=== PATIENT | male | born 1940 | race Caucasian/White ===

== ENCOUNTER → 2023-05-22 12:10 | Outpatient (REF) | payer MEDICARE, SELFPAY ==
[2023-05-22 19:20] LABS: % Basophils 0.6 % (0-2); % Eosinophils 1.6 % (0-6); % Immature Granulocytes 4.4 % (0-0.5); % Lymphocytes 12.9 % (20.5-51.1); % Monocytes 7.3 % (1.7-9.3); % Neutrophils 73.2 % (42.2-75.2); Absolute Basophils 0.1 10^3/uL (0-0.2); Absolute Eosinophils 0.1 10^3/uL (0-0.7); Absolute Immature Granulocytes 0.4 10^3/uL (0-0.05); Absolute Lymphocytes 1.1 10^3/uL (1.2-3.4); Absolute Monocytes 0.6 10^3/uL (0.1-0.6); Absolute Neutrophils 6.1 10^3/uL (1.4-6.5); Hematocrit 33.9 % (39.0-52.0); Hemoglobin 11.2 g/dL (13.0-18.0); Mean Corpuscular Hgb 31.5 pg (27.0-31.0); Mean Corpuscular Volume 95.5 fL (80.0-94.0); Mean Platelet Volume 10.4 fL (7.4-10.4); Nucleated Red Blood Cells % 0 % (-); Platelet Count 252 10^3/uL (130-400); Red Blood Cell Count 3.55 10^6/uL (4.70-6.10); Red Cell Dist. Width 15.7 % (11.5-14.5); White Blood Cell Count 8.4 10^3/uL (4.8-10.8)
[2023-05-22 19:25] LABS: ALT (SGPT) 39 U/L (0-50); AST (SGOT) 31 U/L (17-59); Albumin 3.6 g/dl (3.5-5.0); Alkaline Phosphatase 955 U/L (38-126); Blood Urea Nitrogen 23 mg/dl (9-20); Calcium 9.3 mg/dl (8.4-10.2); Carbon Dioxide 22 mmol/L (22-30); Chloride 106 mmol/L (98-107); Glucose 94 mg/dl (70-99); Potassium 4.8 mmol/L (3.5-5.1); Sodium 135 mmol/L (135-145); Total Bilirubin 0.5 mg/dl (0.2-1.3); Total Protein 6.4 g/dl (6.3-8.2); eGFR 59.63
[2023-05-23 03:09] LABS: TSH Reflex To Free T4 3.08 uIU/ml (0.47-4.68)
[2023-05-23 03:28] LABS: Vitamin B12 947 pg/ml (239-931)
== END ==
LOC: CLAB 12:10
PROVIDERS: ATTENDING PHYSICIAN Family Medicine
DX: R41.3 Other amnesia (principal); D35.1 Benign neoplasm of parathyroid gland; C79.51 Secondary malignant neoplasm of bone; I10 Essential (primary) hypertension
CPT/HCPCS: 80053; 82607; 84443; 85025

== ENCOUNTER → 2023-05-23 15:05 | Outpatient (REF) | payer MEDICARE, SELFPAY | LOC: RAD 15:05 | PROVIDERS: ATTENDING PHYSICIAN Internal Medicine Hematology & Oncology; FAMILY PHYSICIAN Family Medicine | DX: C61 Malignant neoplasm of prostate (principal); C79.51 Secondary malignant neoplasm of bone | CPT/HCPCS: 71260; Q9967 ==

== ENCOUNTER 2023-05-23 16:01 | Emergency (ER) | payer MEDICARE, SELFPAY ==
[2023-05-23 16:04] VITALS: BP 121/60
[2023-05-23 16:44] LABS: % Basophils 0.6 % (0-2); % Eosinophils 2.1 % (0-6); % Lymphocytes 14.9 % (20.5-51.1); % Monocytes 10.2 % (1.7-9.3); % Neutrophils 68.2 % (42.2-75.2); Absolute Eosinophils 0.2 10^3/uL (0-0.7); Absolute Immature Granulocytes 0.3 10^3/uL (0-0.05); Absolute Lymphocytes 1.1 10^3/uL (1.2-3.4); Absolute Monocytes 0.7 10^3/uL (0.1-0.6); Absolute Neutrophils 4.9 10^3/uL (1.4-6.5); Hematocrit 31.1 % (39.0-52.0); Hemoglobin 10.5 g/dL (13.0-18.0); Mean Corp Hgb Conc. 33.8 g/dL (33.0-37.0); Mean Corpuscular Volume 94.8 fL (80.0-94.0); Mean Platelet Volume 10.1 fL (7.4-10.4); Nucleated Red Blood Cells % 0 % (-); Platelet Count 224 10^3/uL (130-400); Red Blood Cell Count 3.28 10^6/uL (4.70-6.10); Red Cell Dist. Width 15.7 % (11.5-14.5); White Blood Cell Count 7.2 10^3/uL (4.8-10.8)
[2023-05-23 16:51] LABS: Lactic Acid 1.2 mmol/L (0.7-2.0)
[2023-05-23 16:54] LABS: ALT (SGPT) 33 U/L (0-50); AST (SGOT) 23 U/L (17-59); Albumin 3.2 g/dl (3.5-5.0); Alkaline Phosphatase 799 U/L (38-126); Blood Urea Nitrogen 30 mg/dl (9-20); Carbon Dioxide 23 mmol/L (22-30); Chloride 105 mmol/L (98-107); Glucose 83 mg/dl (70-99); Potassium 5.1 mmol/L (3.5-5.1); Sodium 136 mmol/L (135-145); Total Bilirubin 0.6 mg/dl (0.2-1.3); Total Protein 5.9 g/dl (6.3-8.2); eGFR 49.56
--- NOTE | 2023-05-23 19:04 | ED.GENMED ---
History of Present Illness
General
Chief Complaint: Change in Mental Status
Time Seen by Provider: 05/23/23 18:43
Travel History
Have you had any contact with someone who has COVID-19?: No
Do you have any symptoms of coronavirus? Fever > 100 degrees, chills, cough, shortness of breath, sore throat, loss of taste or smell, muscle aches, or headache?: No
History of Present Illness
History of Present Illness:
83-year-old male with history of metastatic prostate cancer and chronic urinary retention requiring straight catheterization presents for evaluation of gradually worsening confusion over the past several weeks. He has apparently been forgetful with
taking his medications as well as his outpatient appointment times. No profound confusion reported by family. He was given antibiotic for a presumed urinary tract infection by his urologist and completed this as of this morning. He straight
catheterizes himself twice daily. Patient denies any other complaints at this time. He apparently saw his primary care physician yesterday at which time a Mini-Mental status exam was markedly abnormal thus prompting the PCP to send him to the
emergency department for further neurologic workup
Review of Systems
Review of Systems
Allergies reviewed?: Yes
All Other Systems: ROS reviewed and negative except as documented in HPI and ROS
Phy Exam
Physical Exam
Physical Exam:
GEN: Well appearing, NAD, WDWN
HEENT: Oral mucosa moist, no scleral icterus, no nasal congestion
Cardiac: Regular rate
Lung: No respiratory distress, no tachypnea
MSK: No gross deformity or injuries
Skin: Good color, no pallor or jaundice, no rashes
Neuro: Alert, oriented to person, place, some confusion to time; CN II-XII grossly intact. BUE strength 5/5 in all bone, sensation intact and symmetric. BLE strength 5/5 in all bone, sensation intact and symmetric
Psych: Calm, cooperative
Course
Orders/Labs/Results
Orders:
Orders
05/23/23 16:26
Complete Blood Count/With Diff Urgent
Comprehensive Metabolic Panel Urgent
Lactic Acid Urgent
Blood Culture Urgent
PARVIZ Source: Blood/Venous
Specimen Description:
05/23/23 18:58
CT Head W/o Iv Contrast Urgent
Comment:
Reason For Exam: altered mentation
05/23/23 19:25
Urinalysis Reflex To Culture Urgent
Date Specimen was Collected: 05/23/23
Time Specimen was Collected: 19:17
Urine Microscopic Reflex Cult Urgent
Urine Culture Urgent
PARVIZ Source: U
Specimen Description:
Date Specimen was Collected: 05/23/23
Time Specimen was Collected: 19:17
Comment: ADD ON
05/23/23 21:57
Add On - Microbiology Urgent
Tests Added?: urine culture
Abnormal Lab Results
05/23/23 05/23/23
16:26 19:25
RBC 3.28 L 10^6/uL
(4.70-6.10)
Hgb 10.5 L g/dL
(13.0-18.0)
Hct 31.1 L %
(39.0-52.0)
MCV 94.8 H fL
(80.0-94.0)
MCH 32.0 H pg
(27.0-31.0)
RDW 15.7 H %
(11.5-14.5)
Abs Immat Gran (auto) 0.3 H 10^3/uL
(0-0.05)
Absolute Lymphs (auto) 1.1 L 10^3/uL
(1.2-3.4)
Absolute Monos (auto) 0.7 H 10^3/uL
(0.1-0.6)
Immature Gran % 4.0 H %
(0-0.5)
Lymphocytes % 14.9 L %
(20.5-51.1)
Monocytes % 10.2 H %
(1.7-9.3)
BUN 30 H mg/dl
(9-20)
Creatinine 1.4 H mg/dL
(0.7-1.3)
Alkaline Phosphatase 799 H U/L
(38-126)
Total Protein 5.9 L g/dl
(6.3-8.2)
Albumin 3.2 L g/dl
(3.5-5.0)
Ur Occult Blood Reflex 2+ A
(Negative)
Leukocyte Esterase Rfl Trace A
(Negative)
Urine RBC 21-25 A /HPF
(0-2)
05/23/23 16:26
05/23/23 16:26
Vital Signs
Initial and Last Documented VS:
Initial Vital Signs
Temp Pulse Resp BP Pulse Ox
97.7 F 90 20 121/60 99
05/23/23 16:04 05/23/23 16:04 05/23/23 16:04 05/23/23 16:04 05/23/23 16:04
Last Documented Vital Signs
Temp Pulse Resp BP Pulse Ox
97.7 F 83 16 107/70 100
05/23/23 16:04 05/23/23 19:26 05/23/23 19:26 05/23/23 19:26 05/23/23 19:26
MDM/Problems Addressed
MDM/Problems Addressed:
CT and labs are unremarkable. 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 I discussed this with her primary care physician who will continue to follow-up with the patient and hopefully expedite a
neurology follow-up. I see no indication for inpatient admission at this time, the patient is quite adamant on being discharged home and the son is in agreement
*Critical Care Note
Total Time (30-74mins, 75-104mins- exclusive of procedures): Not Applicable
ED Attending Note
-
Portions of this chart may have been created with voice recognition software.� Occasional wrong word or��sound alike� substitutions may have occurred due to the inherent limitations of voice recognition software.
Discharge Plan
Departure
Patient Disposition: Home (Routine Discharge)
Date of Disposition: 05/23/23
Time of Disposition: 22:03
Patient with high blood pressure during this ER visit?: No
Discharge Problem:
Acute cognitive decline
Instructions: Altered Mental Status (DC)
Prescriptions:
No Action
bicalutamide 50 mg Tablet
50 mg PO QPM
atorvastatin [Lipitor] 20 mg Tablet
20 mg PO QPM
cyanocobalamin (vitamin B-12) 1,000 mcg Tablet
1,000 mcg PO DAILY
ascorbic acid (vitamin C) [Vitamin C] 500 mg Tablet
500 mg PO DAILY
tamsulosin [Flomax] 0.4 mg Capsule
0.4 mg PO HS
finasteride 5 mg Tablet
5 mg PO QPM
ramipril 10 mg Capsule
10 mg PO DAILY
cholecalciferol (vitamin D3) [Vitamin D3] 25 mcg (1,000 unit) Tablet
25 mcg PO DAILY
Azo Bladder Control 300 mg Capsule
1 cap PO DAILY
Referrals:
Vitaliy Edwards MD [Active] -
Ayleen Botello MD [Family Provider] -
Interventions
Interventions:
*Risk Screen - Suicide Last Done: 05/23/23 16:04
*General Assessment Last Done: 05/23/23 16:04
*Neglect/Abuse Screening Last Done: 05/23/23 16:04
*ED COVID-19 Vaccine History Last Done: 05/23/23 19:26
*Nursing Disposition Last Done: 05/23/23 22:37
ED- Neurological Assessment Last Done: 05/23/23 19:26
ED Swallowing Screen Last Done: 05/23/23 19:26
Discharge Date and Time
Discharge Date/Time: 05/23/23 22:39
[2023-05-23 19:26] VITALS: BP 107/70; BMI 22.1
[2023-05-23 19:40] LABS: Urine Albumin Negative (Neg - Trace); Urine Bilirubin Negative (Negative); Urine Character Clear (Clear); Urine Color Yellow; Urine Glucose Negative (Negative); Urine Ketone Negative (Negative); Urine Leukocyte Trace (Negative); Urine Nitrite Negative (Negative); Urine Occult Blood 2+ (Negative); Urine Specific Gravity 1.015 (<1.030); Urine Urobilinogen Negative (Neg - 1+)
[2023-05-23 19:44] LABS: Urine Squamous Cell 0-2 /LPF (Few)
[2023-05-23 19:53] LABS: Urine Hyaline Cast 0-2 /LPF (0-2)
[2023-05-23 19:54] LABS: Urine Red Blood Cell 21-25 /HPF (0-2)
== END 2023-05-23 22:39 | disposition home or self-care (01) ==
LOC: EMR 16:01
PROVIDERS: Emergency Medicine; Physician Assistant; EMERGENCY PHYSICIAN Emergency Medicine; FAMILY PHYSICIAN Family Medicine
DX: R41.89 Other symptoms and signs involving cognitive functions and awareness (principal); R33.9 Retention of urine, unspecified
CPT/HCPCS: 99284; 51701; 70450; 80053; 81003; 81015; 83605; 85025; 87040; 87086

== ENCOUNTER → 2023-06-28 08:16 | Outpatient (REF) | payer MEDICARE, SELFPAY ==
[2023-06-28 08:57] LABS: % Basophils 0.8 % (0-2); % Eosinophils 2.4 % (0-6); % Immature Granulocytes 4.3 % (0-0.5); % Lymphocytes 21.8 % (20.5-51.1); % Neutrophils 57.7 % (42.2-75.2); Absolute Eosinophils 0.1 10^3/uL (0-0.7); Absolute Immature Granulocytes 0.2 10^3/uL (0-0.05); Absolute Lymphocytes 0.8 10^3/uL (1.2-3.4); Absolute Monocytes 0.5 10^3/uL (0.1-0.6); Absolute Neutrophils 2.2 10^3/uL (1.4-6.5); Hematocrit 25.4 % (39.0-52.0); Hemoglobin 8.4 g/dL (13.0-18.0); Mean Corp Hgb Conc. 33.1 g/dL (33.0-37.0); Mean Corpuscular Hgb 31.7 pg (27.0-31.0); Mean Corpuscular Volume 95.8 fL (80.0-94.0); Mean Platelet Volume 10.3 fL (7.4-10.4); Nucleated Red Blood Cells % 0 % (-); Platelet Count 232 10^3/uL (130-400); Red Blood Cell Count 2.65 10^6/uL (4.70-6.10); Red Cell Dist. Width 19.6 % (11.5-14.5); White Blood Cell Count 3.8 10^3/uL (4.8-10.8)
[2023-06-28 09:31] LABS: ALT (SGPT) 23 U/L (0-50); AST (SGOT) 24 U/L (17-59); Albumin 3.5 g/dl (3.5-5.0); Alkaline Phosphatase 649 U/L (38-126); Blood Urea Nitrogen 26 mg/dl (9-20); Calcium 7.4 mg/dl (8.4-10.2); Carbon Dioxide 15 mmol/L (22-30); Chloride 115 mmol/L (98-107); Glucose 89 mg/dl (70-99); Potassium 5.1 mmol/L (3.5-5.1); Sodium 137 mmol/L (135-145); Total Bilirubin 0.5 mg/dl (0.2-1.3); Total Protein 6.1 g/dl (6.3-8.2); eGFR > 60.00
== END ==
LOC: REG 08:16
PROVIDERS: ATTENDING PHYSICIAN Internal Medicine Hematology & Oncology; FAMILY PHYSICIAN Family Medicine
DX: C61 Malignant neoplasm of prostate (principal); C79.51 Secondary malignant neoplasm of bone; N32.0 Bladder-neck obstruction; G89.3 Neoplasm related pain (acute) (chronic)
CPT/HCPCS: 36415; 80053; 84153; 85025

== ENCOUNTER → 2023-07-09 08:42 | Outpatient (REF) | payer MEDICARE, SELFPAY ==
[2023-07-09 10:26] LABS: % Basophils 0.4 % (0-2); % Eosinophils 2.1 % (0-6); % Immature Granulocytes 1.7 % (0-0.5); % Lymphocytes 21.8 % (20.5-51.1); Absolute Eosinophils 0.1 10^3/uL (0-0.7); Absolute Immature Granulocytes 0.1 10^3/uL (0-0.05); Absolute Monocytes 0.5 10^3/uL (0.1-0.6); Hematocrit 27.3 % (39.0-52.0); Hemoglobin 8.8 g/dL (13.0-18.0); Mean Corp Hgb Conc. 32.2 g/dL (33.0-37.0); Mean Corpuscular Hgb 31.9 pg (27.0-31.0); Mean Corpuscular Volume 98.9 fL (80.0-94.0); Mean Platelet Volume 10.1 fL (7.4-10.4); Nucleated Red Blood Cells % 0 % (-); Platelet Count 240 10^3/uL (130-400); Red Blood Cell Count 2.76 10^6/uL (4.70-6.10); Red Cell Dist. Width 20.8 % (11.5-14.5); Reticulocyte Count 2.2 % (0.4-2.8); White Blood Cell Count 4.7 10^3/uL (4.8-10.8)
[2023-07-09 11:13] LABS: ALT (SGPT) 23 U/L (0-50); AST (SGOT) 23 U/L (17-59); Albumin 3.8 g/dl (3.5-5.0); Alkaline Phosphatase 612 U/L (38-126); Blood Urea Nitrogen 25 mg/dl (9-20); Calcium 6.6 mg/dl (8.4-10.2); Carbon Dioxide 17 mmol/L (22-30); Chloride 115 mmol/L (98-107); Glucose 87 mg/dl (70-99); Iron 117 ug/dl (49-181); LDH 183 U/L (120-246); Potassium 5.3 mmol/L (3.5-5.1); Sodium 138 mmol/L (135-145); Total Bilirubin 0.4 mg/dl (0.2-1.3); Total Protein 6.5 g/dl (6.3-8.2); eGFR > 60.00
[2023-07-09 11:20] LABS: Percent Saturation 49 % (20-50); Total Iron Binding Capacity 237 ug/dl (261-462)
[2023-07-09 12:10] LABS: Folate 18.6 ng/ml (2.76-20); Vitamin B12 696 pg/ml (239-931)
[2023-07-10 11:39] LABS: Haptoglobin 391 mg/dL (30-200)
== END ==
LOC: REG 08:42
PROVIDERS: ATTENDING PHYSICIAN Internal Medicine Hematology & Oncology; FAMILY PHYSICIAN Family Medicine
DX: C61 Malignant neoplasm of prostate (principal); C79.51 Secondary malignant neoplasm of bone; N32.0 Bladder-neck obstruction; G89.3 Neoplasm related pain (acute) (chronic)
CPT/HCPCS: 36415; 80053; 82607; 82728; 82746; 83010; 83540; 83550; 83615; 85025; 85045

== ENCOUNTER → 2023-07-12 08:58 | Outpatient (REF) | payer MEDICARE, SELFPAY ==
[2023-07-12 10:55] LABS: ALT (SGPT) 21 U/L (0-50); AST (SGOT) 21 U/L (17-59); Albumin 3.8 g/dl (3.5-5.0); Alkaline Phosphatase 556 U/L (38-126); Blood Urea Nitrogen 24 mg/dl (9-20); Calcium 7.7 mg/dl (8.4-10.2); Carbon Dioxide 18 mmol/L (22-30); Chloride 112 mmol/L (98-107); Glucose 96 mg/dl (70-99); Potassium 5.2 mmol/L (3.5-5.1); Sodium 139 mmol/L (135-145); Total Bilirubin 0.6 mg/dl (0.2-1.3); Total Protein 6.3 g/dl (6.3-8.2); eGFR > 60.00
== END ==
LOC: REG 08:58
PROVIDERS: ATTENDING PHYSICIAN Nurse Practitioner Family; FAMILY PHYSICIAN Family Medicine
DX: C61 Malignant neoplasm of prostate (principal); C79.51 Secondary malignant neoplasm of bone; N32.0 Bladder-neck obstruction; G89.3 Neoplasm related pain (acute) (chronic)
CPT/HCPCS: 36415; 80053

== ENCOUNTER → 2023-07-17 08:31 | Outpatient (REF) | payer MEDICARE, SELFPAY ==
[2023-07-17 10:01] LABS: ALT (SGPT) 22 U/L (0-50); AST (SGOT) 20 U/L (17-59); Albumin 3.6 g/dl (3.5-5.0); Alkaline Phosphatase 486 U/L (38-126); Blood Urea Nitrogen 32 mg/dl (9-20); Calcium 7.9 mg/dl (8.4-10.2); Carbon Dioxide 17 mmol/L (22-30); Chloride 114 mmol/L (98-107); Glucose 95 mg/dl (70-99); Potassium 5.3 mmol/L (3.5-5.1); Sodium 139 mmol/L (135-145); Total Bilirubin 0.4 mg/dl (0.2-1.3); Total Protein 6.2 g/dl (6.3-8.2); eGFR > 60.00
== END ==
LOC: REG 08:31
PROVIDERS: ATTENDING PHYSICIAN Internal Medicine Hematology & Oncology; FAMILY PHYSICIAN Family Medicine
DX: C61 Malignant neoplasm of prostate (principal); C79.51 Secondary malignant neoplasm of bone; N32.0 Bladder-neck obstruction; G89.3 Neoplasm related pain (acute) (chronic)
CPT/HCPCS: 36415; 80053

== ENCOUNTER → 2023-07-19 08:27 | Outpatient (REF) | payer MEDICARE, SELFPAY ==
[2023-07-19 09:39] LABS: Blood Urea Nitrogen 31 mg/dl (9-20); Calcium 8.5 mg/dl (8.4-10.2); Carbon Dioxide 17 mmol/L (22-30); Chloride 116 mmol/L (98-107); Glucose 89 mg/dl (70-99); Potassium 4.9 mmol/L (3.5-5.1); Sodium 137 mmol/L (135-145); eGFR > 60.00
== END ==
LOC: REG 08:27
PROVIDERS: ATTENDING PHYSICIAN Internal Medicine Hematology & Oncology
DX: C61 Malignant neoplasm of prostate (principal); C79.51 Secondary malignant neoplasm of bone; N32.0 Bladder-neck obstruction; G89.3 Neoplasm related pain (acute) (chronic)
CPT/HCPCS: 36415; 80048

== ENCOUNTER → 2023-08-13 09:13 | Outpatient (REF) | payer MEDICARE, SELFPAY ==
[2023-08-13 10:22] LABS: % Basophils 0.5 % (0-2); % Eosinophils 1.9 % (0-6); % Immature Granulocytes 3.7 % (0-0.5); % Lymphocytes 19.2 % (20.5-51.1); % Monocytes 10.9 % (1.7-9.3); % Neutrophils 63.8 % (42.2-75.2); Absolute Eosinophils 0.1 10^3/uL (0-0.7); Absolute Immature Granulocytes 0.2 10^3/uL (0-0.05); Absolute Lymphocytes 1.1 10^3/uL (1.2-3.4); Absolute Monocytes 0.6 10^3/uL (0.1-0.6); Absolute Neutrophils 3.6 10^3/uL (1.4-6.5); Hematocrit 25.8 % (39.0-52.0); Hemoglobin 8.1 g/dL (13.0-18.0); Mean Corp Hgb Conc. 31.4 g/dL (33.0-37.0); Mean Corpuscular Hgb 32.8 pg (27.0-31.0); Mean Corpuscular Volume 104.5 fL (80.0-94.0); Mean Platelet Volume 10.6 fL (7.4-10.4); Nucleated Red Blood Cells % 0 % (-); Platelet Count 315 10^3/uL (130-400); Red Blood Cell Count 2.47 10^6/uL (4.70-6.10); Red Cell Dist. Width 18.8 % (11.5-14.5); White Blood Cell Count 5.7 10^3/uL (4.8-10.8)
[2023-08-13 14:33] LABS: ALT (SGPT) 30 U/L (0-50); AST (SGOT) 22 U/L (17-59); Albumin 3.6 g/dl (3.5-5.0); Alkaline Phosphatase 287 U/L (38-126); Blood Urea Nitrogen 34 mg/dl (9-20); Calcium 7.4 mg/dl (8.4-10.2); Carbon Dioxide 16 mmol/L (22-30); Chloride 116 mmol/L (98-107); Glucose 88 mg/dl (70-99); Potassium 5.6 mmol/L (3.5-5.1); Sodium 139 mmol/L (135-145); Total Bilirubin 0.2 mg/dl (0.2-1.3); Total Protein 6.2 g/dl (6.3-8.2); eGFR 59.63
== END ==
LOC: REG 09:13
PROVIDERS: ATTENDING PHYSICIAN Internal Medicine Hematology & Oncology; FAMILY PHYSICIAN Family Medicine
DX: C61 Malignant neoplasm of prostate (principal); C79.51 Secondary malignant neoplasm of bone; N32.0 Bladder-neck obstruction; G89.3 Neoplasm related pain (acute) (chronic)
CPT/HCPCS: 36415; 80053; 85025

== ENCOUNTER → 2023-09-04 09:36 | Outpatient (REF) | payer MEDICARE, SELFPAY ==
[2023-09-04 10:50] LABS: Urine Albumin Negative (Neg - Trace); Urine Bilirubin Negative (Negative); Urine Character Slightly Cloudy (Clear); Urine Color Yellow; Urine Glucose Negative (Negative); Urine Ketone Negative (Negative); Urine Leukocyte 2+ (Negative); Urine Nitrite Negative (Negative); Urine Occult Blood Trace (Negative); Urine Urobilinogen Negative (Neg - 1+)
[2023-09-04 11:14] LABS: Urine Bacteria Moderate (Negative); Urine White Cell 50-60 /HPF (0-5)
== END ==
LOC: REG 09:36
PROVIDERS: ATTENDING PHYSICIAN Surgery; FAMILY PHYSICIAN Family Medicine
DX: N39.0 Urinary tract infection, site not specified (principal)
CPT/HCPCS: 81003; 81015; 87086; 87147; 87186

== ENCOUNTER → 2023-09-07 08:39 | Outpatient (REF) | payer MEDICARE, SELFPAY ==
[2023-09-07 09:16] LABS: % Basophils 0.5 % (0-2); % Eosinophils 3.3 % (0-6); % Immature Granulocytes 0.8 % (0-0.5); % Lymphocytes 21.1 % (20.5-51.1); % Monocytes 8.5 % (1.7-9.3); % Neutrophils 65.8 % (42.2-75.2); Absolute Eosinophils 0.1 10^3/uL (0-0.7); Absolute Lymphocytes 0.8 10^3/uL (1.2-3.4); Absolute Monocytes 0.3 10^3/uL (0.1-0.6); Absolute Neutrophils 2.4 10^3/uL (1.4-6.5); Hematocrit 26.8 % (39.0-52.0); Hemoglobin 8.3 g/dL (13.0-18.0); Mean Corpuscular Hgb 33.2 pg (27.0-31.0); Mean Corpuscular Volume 107.2 fL (80.0-94.0); Mean Platelet Volume 9.9 fL (7.4-10.4); Nucleated Red Blood Cells % 0 % (-); Platelet Count 227 10^3/uL (130-400); Red Cell Dist. Width 16.7 % (11.5-14.5); White Blood Cell Count 3.7 10^3/uL (4.8-10.8)
[2023-09-07 09:43] LABS: ALT (SGPT) 16 U/L (0-50); AST (SGOT) 19 U/L (17-59); Albumin 3.5 g/dl (3.5-5.0); Alkaline Phosphatase 346 U/L (38-126); Blood Urea Nitrogen 27 mg/dl (9-20); Calcium 8.3 mg/dl (8.4-10.2); Carbon Dioxide 21 mmol/L (22-30); Chloride 112 mmol/L (98-107); Glucose 134 mg/dl (70-99); Potassium 5.1 mmol/L (3.5-5.1); Sodium 140 mmol/L (135-145); Total Bilirubin 0.2 mg/dl (0.2-1.3); eGFR 59.63
== END ==
LOC: REG 08:39
PROVIDERS: ATTENDING PHYSICIAN Internal Medicine Hematology & Oncology; FAMILY PHYSICIAN Family Medicine
DX: C61 Malignant neoplasm of prostate (principal); C79.51 Secondary malignant neoplasm of bone; N32.0 Bladder-neck obstruction; G89.3 Neoplasm related pain (acute) (chronic)
CPT/HCPCS: 36415; 80053; 84153; 84154; 85025

== ENCOUNTER → 2023-09-20 13:38 | Outpatient (REF) | payer MEDICARE, SELFPAY ==
[2023-09-20 18:43] LABS: Urine Albumin Negative (Neg - Trace); Urine Bilirubin Negative (Negative); Urine Character Clear (Clear); Urine Color Yellow; Urine Glucose Negative (Negative); Urine Ketone Negative (Negative); Urine Leukocyte Trace (Negative); Urine Nitrite Negative (Negative); Urine Occult Blood Negative (Negative); Urine Specific Gravity 1.005 (<1.030); Urine Urobilinogen Negative (Neg - 1+)
[2023-09-20 18:49] LABS: Urine Red Blood Cell 0-2 /HPF (0-2)
== END ==
LOC: CLAB 13:38
PROVIDERS: ATTENDING PHYSICIAN Surgery
DX: N39.0 Urinary tract infection, site not specified (principal)
CPT/HCPCS: 81003; 81015; 87086

== ENCOUNTER → 2023-09-25 09:34 | Outpatient (REF) | payer MEDICARE, SELFPAY ==
[2023-09-25 10:21] LABS: Ionized Calcium 1.19 mMOL/L (1.15-1.33)
[2023-09-25 11:22] LABS: ALT (SGPT) 20 U/L (0-50); AST (SGOT) 23 U/L (17-59); Albumin 3.6 g/dl (3.5-5.0); Alkaline Phosphatase 375 U/L (38-126); Blood Urea Nitrogen 31 mg/dl (9-20); Calcium 8.5 mg/dl (8.4-10.2); Carbon Dioxide 21 mmol/L (22-30); Chloride 112 mmol/L (98-107); Glucose 101 mg/dl (70-99); Potassium 5.3 mmol/L (3.5-5.1); Sodium 140 mmol/L (135-145); Total Bilirubin 0.2 mg/dl (0.2-1.3); Total Protein 6.1 g/dl (6.3-8.2); eGFR > 60.00
[2023-09-25 11:26] LABS: Vitamin D, 25-OH*** 60.9 ng/mL (30-80)
[2023-09-25 11:40] LABS: TSH 1.63 uIU/ml (0.47-4.68)
== END ==
LOC: REG 09:34
PROVIDERS: ATTENDING PHYSICIAN Internal Medicine Endocrinology, Diabetes & Metabolism; FAMILY PHYSICIAN Family Medicine
DX: E21.0 Primary hyperparathyroidism (principal); E55.9 Vitamin D deficiency, unspecified
CPT/HCPCS: 36415; 80053; 82306; 82330; 83970; 84443

== ENCOUNTER → 2023-10-10 10:44 | Outpatient (REF) | payer MEDICARE, SELFPAY ==
[2023-10-10 10:37] LABS: % Basophils 0.5 % (0-2); % Eosinophils 2.6 % (0-6); % Immature Granulocytes 1.6 % (0-0.5); % Lymphocytes 24.9 % (20.5-51.1); % Monocytes 10.2 % (1.7-9.3); % Neutrophils 60.2 % (42.2-75.2); Absolute Eosinophils 0.1 10^3/uL (0-0.7); Absolute Immature Granulocytes 0.1 10^3/uL (0-0.05); Absolute Monocytes 0.4 10^3/uL (0.1-0.6); Absolute Neutrophils 2.3 10^3/uL (1.4-6.5); Hematocrit 26.6 % (39.0-52.0); Hemoglobin 8.7 g/dL (13.0-18.0); Mean Corp Hgb Conc. 32.7 g/dL (33.0-37.0); Mean Corpuscular Hgb 33.7 pg (27.0-31.0); Mean Corpuscular Volume 103.1 fL (80.0-94.0); Platelet Count 270 10^3/uL (130-400); Red Blood Cell Count 2.58 10^6/uL (4.70-6.10); Red Cell Dist. Width 15.4 % (11.5-14.5); White Blood Cell Count 3.8 10^3/uL (4.8-10.8)
== END ==
LOC: OIDL 10:44
PROVIDERS: ATTENDING PHYSICIAN Internal Medicine Hematology & Oncology
DX: C61 Malignant neoplasm of prostate (principal)
CPT/HCPCS: 84153; 84403; 85025

== ENCOUNTER → 2023-10-31 12:26 | Outpatient (REF) | payer MEDICARE, SELFPAY ==
[2023-10-31 12:59] LABS: % Basophils 0.5 % (0-2); % Eosinophils 1.2 % (0-6); % Lymphocytes 22.5 % (20.5-51.1); % Monocytes 10.8 % (1.7-9.3); Absolute Eosinophils 0.1 10^3/uL (0-0.7); Absolute Lymphocytes 0.9 10^3/uL (1.2-3.4); Absolute Monocytes 0.4 10^3/uL (0.1-0.6); Absolute Neutrophils 2.6 10^3/uL (1.4-6.5); Hematocrit 25.8 % (39.0-52.0); Hemoglobin 8.3 g/dL (13.0-18.0); Mean Corp Hgb Conc. 32.2 g/dL (33.0-37.0); Mean Corpuscular Hgb 32.4 pg (27.0-31.0); Mean Corpuscular Volume 100.8 fL (80.0-94.0); Mean Platelet Volume 9.9 fL (7.4-10.4); Nucleated Red Blood Cells % 0 % (-); Platelet Count 234 10^3/uL (130-400); Red Blood Cell Count 2.56 10^6/uL (4.70-6.10); Red Cell Dist. Width 15.3 % (11.5-14.5); White Blood Cell Count 4.1 10^3/uL (4.8-10.8)
[2023-10-31 13:16] LABS: ALT (SGPT) 20 U/L (0-50); AST (SGOT) 27 U/L (17-59); Albumin 3.9 g/dl (3.5-5.0); Alkaline Phosphatase 358 U/L (38-126); Blood Urea Nitrogen 36 mg/dl (9-20); Calcium 9.4 mg/dl (8.4-10.2); Carbon Dioxide 22 mmol/L (22-30); Chloride 112 mmol/L (98-107); Glucose 89 mg/dl (70-99); Potassium 5.3 mmol/L (3.5-5.1); Sodium 141 mmol/L (135-145); Total Bilirubin 0.4 mg/dl (0.2-1.3); Total Protein 6.5 g/dl (6.3-8.2); eGFR 59.63
[2023-10-31 14:19] LABS: Folate > 20.0 ng/ml (2.76-20); Vitamin B12 949 pg/ml (239-931)
== END ==
LOC: REG 12:26
PROVIDERS: ATTENDING PHYSICIAN Internal Medicine Hematology & Oncology; FAMILY PHYSICIAN Family Medicine
DX: C61 Malignant neoplasm of prostate (principal); C79.51 Secondary malignant neoplasm of bone; N32.0 Bladder-neck obstruction; G89.3 Neoplasm related pain (acute) (chronic); D64.9 Anemia, unspecified
CPT/HCPCS: 36415; 80053; 82607; 82746; 82784; 83521; 84153; 84155; 84165; 85025; 86334

== ENCOUNTER → 2023-11-16 08:07 | Outpatient (REF) | payer MEDICARE, SELFPAY | LOC: RAD 08:07 | PROVIDERS: ATTENDING PHYSICIAN Internal Medicine Hematology & Oncology; FAMILY PHYSICIAN Family Medicine | DX: C61 Malignant neoplasm of prostate (principal); C79.51 Secondary malignant neoplasm of bone; N32.0 Bladder-neck obstruction; G89.3 Neoplasm related pain (acute) (chronic); D64.9 Anemia, unspecified | CPT/HCPCS: 71260; 74177; 78306; A9503; Q9967 ==

== ENCOUNTER → 2023-12-01 08:29 | Outpatient (REF) | payer MEDICARE, SELFPAY ==
[2023-12-01 09:05] LABS: % Basophils 0.8 % (0-2); % Eosinophils 1.6 % (0-6); % Immature Granulocytes 0.8 % (0-0.5); % Lymphocytes 22.1 % (20.5-51.1); % Monocytes 9.8 % (1.7-9.3); % Neutrophils 64.9 % (42.2-75.2); Absolute Eosinophils 0.1 10^3/uL (0-0.7); Absolute Lymphocytes 0.8 10^3/uL (1.2-3.4); Absolute Monocytes 0.4 10^3/uL (0.1-0.6); Absolute Neutrophils 2.4 10^3/uL (1.4-6.5); Hematocrit 23.8 % (39.0-52.0); Hemoglobin 7.6 g/dL (13.0-18.0); Mean Corp Hgb Conc. 31.9 g/dL (33.0-37.0); Mean Corpuscular Volume 103.5 fL (80.0-94.0); Mean Platelet Volume 9.7 fL (7.4-10.4); Nucleated Red Blood Cells % 0 % (-); Platelet Count 216 10^3/uL (130-400); Red Cell Dist. Width 14.6 % (11.5-14.5); White Blood Cell Count 3.8 10^3/uL (4.8-10.8)
[2023-12-01 09:54] LABS: ALT (SGPT) 18 U/L (0-50); AST (SGOT) 23 U/L (17-59); Albumin 3.5 g/dl (3.5-5.0); Alkaline Phosphatase 403 U/L (38-126); Blood Urea Nitrogen 32 mg/dl (9-20); Calcium 9.4 mg/dl (8.4-10.2); Carbon Dioxide 23 mmol/L (22-30); Chloride 107 mmol/L (98-107); Glucose 107 mg/dl (70-99); Magnesium 2.1 mg/dl (1.6-2.3); Potassium 4.6 mmol/L (3.5-5.1); Sodium 137 mmol/L (135-145); Total Bilirubin 0.3 mg/dl (0.2-1.3); Total Protein 6.1 g/dl (6.3-8.2); eGFR 59.63
== END ==
LOC: REG 08:29
PROVIDERS: ATTENDING PHYSICIAN Internal Medicine Hematology & Oncology; FAMILY PHYSICIAN Family Medicine
DX: C61 Malignant neoplasm of prostate (principal); C79.51 Secondary malignant neoplasm of bone; N32.0 Bladder-neck obstruction; G89.3 Neoplasm related pain (acute) (chronic); D64.9 Anemia, unspecified
CPT/HCPCS: 36415; 80053; 83735; 84153; 85025

== ENCOUNTER 2023-12-06 10:06 | Outpatient (RCR) | payer MEDICARE, SELFPAY ==
[2023-12-05 15:09] LABS: % Basophils 0.6 % (0-2); % Eosinophils 1.2 % (0-6); % Immature Granulocytes 1.5 % (0-0.5); % Lymphocytes 27.3 % (20.5-51.1); % Monocytes 11.3 % (1.7-9.3); % Neutrophils 58.1 % (42.2-75.2); Absolute Immature Granulocytes 0.1 10^3/uL (0-0.05); Absolute Lymphocytes 0.9 10^3/uL (1.2-3.4); Absolute Monocytes 0.4 10^3/uL (0.1-0.6); Absolute Neutrophils 1.9 10^3/uL (1.4-6.5); Hematocrit 23.5 % (39.0-52.0); Hemoglobin 7.5 g/dL (13.0-18.0); Mean Corp Hgb Conc. 31.9 g/dL (33.0-37.0); Mean Corpuscular Hgb 33.5 pg (27.0-31.0); Mean Corpuscular Volume 104.9 fL (80.0-94.0); Mean Platelet Volume 9.8 fL (7.4-10.4); Platelet Count 205 10^3/uL (130-400); Red Blood Cell Count 2.24 10^6/uL (4.70-6.10); Red Cell Dist. Width 14.9 % (11.5-14.5); White Blood Cell Count 3.3 10^3/uL (4.8-10.8)
[2023-12-06 10:20] VITALS: BP 94/48
[2023-12-06 10:38] VITALS: BP 94/48
[2023-12-06] MEDS: TYLENOL 650 MG PO (10:41)
[2023-12-06 10:55] VITALS: BP 97/49
[2023-12-06 12:28] VITALS: BP 98/49
== END 2023-12-22 23:59 | disposition home or self-care (01) ==
LOC: OID 10:06
PROVIDERS: ATTENDING PHYSICIAN Internal Medicine Hematology & Oncology; FAMILY PHYSICIAN Family Medicine
DX: C61 Malignant neoplasm of prostate (principal); C79.51 Secondary malignant neoplasm of bone; N32.0 Bladder-neck obstruction; G89.3 Neoplasm related pain (acute) (chronic); D63.0 Anemia in neoplastic disease; D64.9 Anemia, unspecified
CPT/HCPCS: 36430; 85025; 86850; 86900; 86901; 86920; P9016

== ENCOUNTER → 2024-01-02 15:46 | Outpatient (REF) | payer MEDICARE, SELFPAY ==
[2024-01-02 10:02] LABS: % Basophils 0.9 % (0-2); % Eosinophils 2.5 % (0-6); % Immature Granulocytes 1.6 % (0-0.5); % Lymphocytes 28.8 % (20.5-51.1); % Monocytes 12.5 % (1.7-9.3); % Neutrophils 53.7 % (42.2-75.2); Absolute Eosinophils 0.1 10^3/uL (0-0.7); Absolute Immature Granulocytes 0.1 10^3/uL (0-0.05); Absolute Lymphocytes 0.9 10^3/uL (1.2-3.4); Absolute Monocytes 0.4 10^3/uL (0.1-0.6); Absolute Neutrophils 1.7 10^3/uL (1.4-6.5); Hematocrit 25.6 % (39.0-52.0); Hemoglobin 8.3 g/dL (13.0-18.0); Mean Corp Hgb Conc. 32.4 g/dL (33.0-37.0); Mean Corpuscular Hgb 31.6 pg (27.0-31.0); Mean Corpuscular Volume 97.3 fL (80.0-94.0); Nucleated Red Blood Cells % 0 % (-); Red Blood Cell Count 2.63 10^6/uL (4.70-6.10); Red Cell Dist. Width 18.4 % (11.5-14.5); White Blood Cell Count 3.2 10^3/uL (4.8-10.8)
[2024-01-02 10:12] LABS: ALT (SGPT) 18 U/L (0-50); AST (SGOT) 27 U/L (17-59); Alkaline Phosphatase 454 U/L (38-126); Blood Urea Nitrogen 26 mg/dl (9-20); Calcium 9.8 mg/dl (8.4-10.2); Carbon Dioxide 21 mmol/L (22-30); Chloride 109 mmol/L (98-107); Glucose 84 mg/dl (70-99); Iron 147 ug/dl (49-181); Potassium 4.7 mmol/L (3.5-5.1); Sodium 142 mmol/L (135-145); Total Bilirubin 0.5 mg/dl (0.2-1.3); Total Protein 6.3 g/dl (6.3-8.2); eGFR > 60.00
[2024-01-02 10:18] LABS: Percent Saturation 59 % (20-50); Total Iron Binding Capacity 247 ug/dl (261-462)
[2024-01-02 10:38] LABS: Mean Platelet Volume 11.4 fL (7.4-10.4); Platelet Count 184 10^3/uL (130-400)
== END ==
LOC: OIDL 15:46
PROVIDERS: ATTENDING PHYSICIAN Internal Medicine Hematology & Oncology
DX: C61 Malignant neoplasm of prostate (principal)
CPT/HCPCS: 80053; 82728; 83540; 83550; 84153; 85025

== ENCOUNTER 2024-01-07 06:29 | Day surgery (SDC) | payer MEDICARE, SELFPAY ==
[2024-01-04 09:45] VITALS: BMI 22.6
[2024-01-04 10:57] LABS: APTT 31.9 Sec (23.4-35.0); INR 1.08; PT 13.8 Sec (11.4-14.6)
[2024-01-07] VITALS (14 sets, daily range): BP systolic 102–115; BP diastolic 51–61; BMI 22.6
--- NOTE | 2024-01-07 17:29 | W.IMMPOSTOP ---
Surgical Immed Post Op Note
-
Primary Surgeon: Dee
Pre-op Diagnosis: BPH with HOLBROOK, metastatic prostate cancer
Post-op Diagnosis: Same
Procedure Performed: button vaporization TURP
Anesthesia Type: LMA
Specimen / Cultures: None/None
Estimated Blood Loss: Negligible
Drains: 22Fr 3-way catheter
Complications: None
Operative Findings: see op note
[2024-01-07] MEDS: PROSCAR 5 MG PO (20:55)
[2024-01-07] MEDS: FLOMAX 0.4 MG PO (20:58)
[2024-01-07] MEDS: ARICEPT 10 MG PO (21:13)
[2024-01-07] MEDS: TYLENOL 650 MG PO (21:13)
[2024-01-08 03:40] VITALS: BP 97/51
[2024-01-08 06:49] LABS: % Basophils 0.3 % (0-2); % Eosinophils 0.5 % (0-6); % Immature Granulocytes 0.5 % (0-0.5); % Lymphocytes 15.1 % (20.5-51.1); % Monocytes 10.8 % (1.7-9.3); % Neutrophils 72.8 % (42.2-75.2); Absolute Lymphocytes 0.6 10^3/uL (1.2-3.4); Absolute Monocytes 0.4 10^3/uL (0.1-0.6); Absolute Neutrophils 2.8 10^3/uL (1.4-6.5); Hematocrit 21.3 % (39.0-52.0); Mean Corp Hgb Conc. 32.9 g/dL (33.0-37.0); Mean Corpuscular Hgb 31.8 pg (27.0-31.0); Mean Corpuscular Volume 96.8 fL (80.0-94.0); Mean Platelet Volume 10.5 fL (7.4-10.4); Nucleated Red Blood Cells % 0 % (-); Platelet Count 173 10^3/uL (130-400); Red Cell Dist. Width 19.2 % (11.5-14.5); White Blood Cell Count 3.9 10^3/uL (4.8-10.8)
[2024-01-08 06:57] LABS: Blood Urea Nitrogen 27 mg/dl (9-20); Calcium 8.3 mg/dl (8.4-10.2); Carbon Dioxide 18 mmol/L (22-30); Chloride 110 mmol/L (98-107); Estimated Creatinine Clearance 48 ml/min; Glucose 76 mg/dl (70-99); Potassium 4.6 mmol/L (3.5-5.1); Sodium 139 mmol/L (135-145); eGFR > 60.00
[2024-01-08 07:43] VITALS: BP 110/62
[2024-01-08] MEDS: VITAMIN C 500 MG PO (07:53)
[2024-01-08] MEDS: ALTACE 2.5 MG PO (07:53)
[2024-01-08] MEDS: FLOMAX 0.4 MG PO (07:53)
[2024-01-08] MEDS: VITAMIN D3 (cholecalciferol) 25 MCG PO (07:53)
[2024-01-08] MEDS: OSCAL CAL 500 500 MG PO (07:53)
[2024-01-08] MEDS: LIPITOR 10 MG PO (07:53)
[2024-01-08] MEDS: VITAMIN B-12 1000 MCG PO (07:53)
[2024-01-08] MEDS: VISBIOME 1 CAP PO (07:53)
--- NOTE | 2024-01-08 09:29 | CON.ONC ---
Impression
Impression
Anemia; adequate iron stores, no bleeding
Metastatic prostate cancer; on Lupron, Xtandi (added Nov 2023), and Xgeva (much improvement in PSA since Nov 2023)
Plan
Plan
Will hold off on transfusion currently, asymptomatic and anemia has been chronic
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
Aranesp to start at next office visit
Reviewed significant improvement in PSA since Xtandi was added to Lupron
Okay for d/c from heme perspective
office f/u has been arranged for 01/30/24
Patient History
History of Present Illness
Roderick Neves is known to me from the office, for treatment of metastatic prostate cancer.
He was admitted yesterday after button turp by Dr. Price, with negligible blood loss.
Hgb on 01/01/23 was 8.3, today is 7.0.
He had been transfused in November for hgb 7.5.
He denies bleeding. He notes occasional dizziness, chronic, but no worse. No dyspnea, chest pain, fatigue.
He doesn't feel he needs a transfusion.
He recently (mid November) started Xtandi for rising PSA on Lupron. PSA was 498 on 12/01/23, and dropped to 83.9 as of 01/01.
He has CKD 2/3.
Past-Medical/Surgical History
PMH/PSH - as per the HPI, also HTN, hyperlipidemia, thyroid disease
Patient Medication
�Medication �Instructions �Recorded �Confirmed �Last Taken �Type
ascorbic acid (vitamin C) 500 mg 500 mg PO DAILY 05/23/23 01/07/24 01/03/24 History
tablet (Vitamin C)
cholecalciferol (vitamin D3) 25 25 mcg PO DAILY 05/23/23 01/07/24 01/03/24 History
mcg (1,000 unit) tablet (Vitamin
D3)
cyanocobalamin (vitamin B-12) 1,000 mcg PO DAILY 05/23/23 01/07/24 01/03/24 History
1,000 mcg tablet
finasteride 5 mg tablet 5 mg PO QPM 05/23/23 01/07/24 01/06/24 18:00 History
ramipril 10 mg capsule 2.5 mg PO DAILY 05/23/23 01/07/24 01/06/24 08:00 History
tamsulosin 0.4 mg capsule (Flomax) 0.4 mg PO BID 05/23/23 01/07/24 01/07/24 08:00 History
Xtandi 1,600 mg PO DAILY 12/06/23 01/07/24 01/07/24 08:00 History
Lupron 1 unit SC Q6M 01/03/24 01/07/24 12/24/23 History
Visbiome 1 cap PO DAILY 01/03/24 01/07/24 01/07/24 08:00 History
atorvastatin 10 mg tablet 10 mg PO DAILY 01/03/24 01/07/24 01/06/24 18:00 History
calcium carbonate (Calcium 600) 600 mg PO DAILY 01/03/24 01/07/24 01/07/24 08:00 History
coenzyme Q10 100 mg capsule 100 mg PO QPM 01/03/24 01/07/24 01/03/24 History
(CoQ-10)
d-mannose 500 mg capsule (AZO 500 mg PO QPM 01/03/24 01/07/24 01/03/24 History
D-Mannose)
denosumab 120 mg/1.7 mL (70 mg/mL) 120 mg SC Q4W 01/03/24 01/07/24 01/02/24 History
subcutaneous solution (Xgeva)
donepezil 10 mg tablet 20 mg PO HS 01/03/24 01/07/24 01/06/24 18:00 History
Active Medications
Generic Name Dose Route Start Last Admin
Trade Name Freq PRN Reason Stop Dose Admin
Acetaminophen 650 mg 01/07/24 15:29 01/07/24 21:13
Acetaminophen 325 Mg Tablet PO 02/04/24 15:28 650 mg
Q4HPRN PRN Administration
mild pain/temp
Ascorbic Acid 500 mg 01/08/24 08:00 01/08/24 07:53
Ascorbic Acid 500 Mg Tablet PO 02/05/24 07:59 500 mg
DAILY LASHAWN Administration
Atorvastatin Calcium 10 mg 01/08/24 08:00 01/08/24 07:53
Atorvastatin (Lipitor) 10 Mg Tablet PO 02/05/24 07:59 10 mg
DAILY LASHAWN Administration
Calcium Carbonate 500 mg 01/08/24 08:00 01/08/24 07:53
Calcium Carbonate 500 Mg Tablet PO 02/05/24 07:59 500 mg
DAILY LASHAWN Administration
Cholecalciferol 25 mcg 01/08/24 08:00 01/08/24 07:53
Cholecalciferol (Vitamin D3) 25 Mcg Tablet (1,000 Units) PO 02/05/24 07:59 25 mcg
DAILY LASHAWN Administration
Cyanocobalamin 1,000 mcg 01/08/24 08:00 01/08/24 07:53
Cyanocobalamin 1,000 Mcg Tablet PO 02/05/24 07:59 1,000 mcg
DAILY LASHAWN Administration
Donepezil HCl 10 mg 01/07/24 22:00 01/07/24 21:13
Donepezil Hcl 10 Mg Tablet PO 02/04/24 21:59 10 mg
HS LASHAWN Administration
Finasteride 5 mg 01/07/24 18:00 01/07/24 20:55
Finasteride 5 Mg Tablet PO 02/04/24 17:59 5 mg
QPM LASHAWN Administration
Ibuprofen 600 mg 01/07/24 15:30
Ibuprofen 600 Mg Tablet PO 02/04/24 15:29
Q6HPRN PRN
moderate pain
Lactobacillus/Bifidobacterium 1 cap 01/08/24 08:00 01/08/24 07:53
Lactobac/Bifidobac (Visbiome) PO 02/05/24 07:59 1 cap
DAILY LASHAWN Administration
Ondansetron HCl 4 mg 01/07/24 15:30
Ondansetron 4 Mg Tablet PO 02/04/24 15:29
Q8HPRN PRN
nausea
Ramipril 2.5 mg 01/08/24 08:00 01/08/24 07:53
Ramipril (Altace)2.5 Mg Capsule PO 02/05/24 07:59 2.5 mg
DAILY LASHAWN Administration
Sodium Chloride 0 flush 01/07/24 06:00
Sodium Chloride 0.9% (Flush) Syringe IV 02/04/24 05:59
PER PROTOCOL LASHAWN
Tamsulosin HCl 0.4 mg 01/07/24 20:00 01/08/24 07:53
Tamsulosin 0.4 Mg Capsule PO 02/04/24 19:59 0.4 mg
BID LASHAWN Administration
Physical Exam
-
General: No Apparent Distress and Conversant
HEENT: Negative Jaundice
Cardiology: Normal Sinus Rhythm
Pulmonary: Clear
GI: Soft
Musculoskeletal: No Clubbing, No Cyanosis and No Edema
Neurology: Non Focal and No Lateralizing Symptoms
Skin: Warm and Dry
Psych: Calm
Labs
Lab Results
WBC 3.9 10^3/uL (4.8-10.8) L 01/08/24 04:43
RBC 2.20 10^6/uL (4.70-6.10) L 01/08/24 04:43
Hgb 7.0 g/dL (13.0-18.0) L 01/08/24 04:43
Hct 21.3 % (39.0-52.0) L 01/08/24 04:43
MCV 96.8 fL (80.0-94.0) H 01/08/24 04:43
MCH 31.8 pg (27.0-31.0) H 01/08/24 04:43
MCHC 32.9 g/dL (33.0-37.0) L 01/08/24 04:43
RDW 19.2 % (11.5-14.5) H 01/08/24 04:43
Plt Count 173 10^3/uL (130-400) 01/08/24 04:43
MPV 10.5 fL (7.4-10.4) H 01/08/24 04:43
Abs Immat Gran (auto) 0.0 10^3/uL (0-0.05) 01/08/24 04:43
Absolute Neuts (auto) 2.8 10^3/uL (1.4-6.5) 01/08/24 04:43
Absolute Lymphs (auto) 0.6 10^3/uL (1.2-3.4) L 01/08/24 04:43
Absolute Monos (auto) 0.4 10^3/uL (0.1-0.6) 01/08/24 04:43
Absolute Eos (auto) 0.0 10^3/uL (0-0.7) 01/08/24 04:43
Absolute Basos (auto) 0.0 10^3/uL (0-0.2) 01/08/24 04:43
Immature Gran % 0.5 % (0-0.5) 01/08/24 04:43
Neutrophils % 72.8 % (42.2-75.2) 01/08/24 04:43
Lymphocytes % 15.1 % (20.5-51.1) L 01/08/24 04:43
Monocytes % 10.8 % (1.7-9.3) H 01/08/24 04:43
Eosinophils % 0.5 % (0-6) 01/08/24 04:43
Basophils % 0.3 % (0-2) 01/08/24 04:43
Creatinine 1.1 mg/dL (0.7-1.3) 01/08/24 04:43
Vital Signs
Vital Signs
Temp Pulse Resp BP Pulse Ox
98.3 F 65 16 110/62 98
01/08/24 07:43 01/08/24 07:43 01/08/24 07:43 01/08/24 07:43 01/08/24 07:43
--- NOTE | 2024-01-08 11:06 | CM ---
Patient seen at bedside. IA Completed.
Discussed case management role.
babin was removed - await to void.
Patient lives in a 2 story home with his ( has caregivers). 2 steps to enter home, 12 steps to 2nd floor.
PLOF: Independent, does not use device, drives
No prior HH/SNF
No needs anticipated.
PCP: Ayleen Ramirez
Pharmacy: [facility]
PLAN: Home, no needs
son in law to transport
[2024-01-08 11:15] VITALS: BP 137/61
--- NOTE | 2024-01-08 12:25 | W.PN.URO.CBU ---
Today's Communication / Plan
-
No indication for transfusion as asymptomatic, HDS per Hematology - plan for Aranesp as outpatient (d/w Dr. Stevenson)
Voiding trial today
PVR to ensure adequate emptying
eRx for Augmentin BID x5 days + Pyridium BID prn sent
Discharge home today
Assessment / Plan
-
Patient Diagnosis:
BPH with HOLBROOK
Metastatic prostate cancer on Lupron/Xtandi/Xgeva
Chronic anemia
01/06: s/p button vaporization TURP
Diagnosis
-
Date of Service: January 08, 2024
-
Patient Diagnosis:
BPH with HOLBROOK
Metastatic prostate cancer on Lupron/Xtandi/Xgeva
Post Op Day:
01/06: s/p button vaporization TURP
Subjective
-
Feeling well.
Denies dysuria.
Scant void this AM - drinking fluids for voiding trial.
Objective
-
Vital Signs
Temp Pulse Resp BP Pulse Ox
98.4 F 60 16 137/61 98
01/08/24 11:15 01/08/24 11:15 01/08/24 11:15 01/08/24 11:15 01/08/24 11:15
Intake and Output
01/07/24 01/08/24 01/09/24
06:59 06:59 06:59
Intake Total 720 / 720
Output Total 500 / 500 300 / 300
Balance 220 / 220 -300 / -300
Intake:
Oral fluids 720 / 720
Output:
Urine, Fry 300 / 300
True Urine Output from CBI 500 / 500
Laboratory Results
01/08/24 04:43
01/08/24 04:43
Physical Exam
-
General - well developed, well nourished, no acute distress
Abdomen - soft, non-tender, non-distended
Genitalia - normal
Rectal - normal
Skin - warm & dry with no rash
Neuro - AOx3, no motor deficits
Extremities - no clubbing, no cyanosis, no edema
Care Review
Data Reviewed
Discussed with: Nursing and Family
[2024-01-08 15:20] VITALS: BP 96/49
--- NOTE | 2024-01-18 08:03 | W.PN.UPDATE ---
Update Note
Progress Note Update
01/06: s/p button vaporization TURP for bladder outlet obstruction.
H/o metastatic prostate cancer on ADT - follows w/ Medical Oncology.
Completed Augmentin course x5 days through 01/13/24.
Admitted w/ C. difficile colitis.
Urologic plan:
- Fry catheter replaced 01/16 afternoon for recurrent urinary retention
- Suspect deconditioned state as contributing factor
- Will schedule outpatient voiding trial in office in 1 week after resolution of colitis
== END 2024-01-08 16:30 | disposition home or self-care (01) ==
LOC: SDS 06:29
PROVIDERS: ATTENDING PHYSICIAN Surgery; FAMILY PHYSICIAN Family Medicine
DX: N40.1 Benign prostatic hyperplasia with lower urinary tract symptoms (principal); N13.8 Other obstructive and reflux uropathy; C61 Malignant neoplasm of prostate; D63.0 Anemia in neoplastic disease
CPT/HCPCS: 52601; 36415; 80048; 85025; 85610; 85730; 86850; 86900; 86901; 93005

== ENCOUNTER 2024-01-16 15:06 | Inpatient (IN) | payer MEDICARE, SELFPAY ==
[2024-01-16] VITALS (15 sets, daily range): BP systolic 84–105; BP diastolic 46–72; BMI 25.0; BMI 22.7
[2024-01-16 11:42] LABS: Hematocrit 24.4 % (39.0-52.0); Hemoglobin 7.9 g/dL (13.0-18.0); Mean Corp Hgb Conc. 32.4 g/dL (33.0-37.0); Mean Corpuscular Volume 98.8 fL (80.0-94.0); Mean Platelet Volume 10.1 fL (7.4-10.4); Platelet Count 250 10^3/uL (130-400); Red Blood Cell Count 2.47 10^6/uL (4.70-6.10); White Blood Cell Count 7.3 10^3/uL (4.8-10.8)
--- NOTE | 2024-01-16 11:42 | ED.GENMED ---
History of Present Illness
General
Chief Complaint: Abdominal Pain
Source: patient
Exam Limitations: none
Time Seen by Provider: 01/16/24 11:28
Nursing documentation reviewed up to this point in time: agreed with
History of Present Illness
History of Present Illness:
83 yo male presents to the emergency department c/o lower abdominal pain and intermittent diarrhea for the past 3 days. He denies fevers. He is a poor historian.
Past History
Past History
ED Past Medical History: Cancer (Prostate cancer with bony metastasis), HTN and Hypercholesterolemia
Social History
Tobacco: Non-smoker
Alcohol: Occasional
Drug: None
Personal:
Living: with family
Review of Systems
Review of Systems
Allergies reviewed?: Yes
All Other Systems: Not applicable
Constitutional: Reports no symptoms
EENT: Reports no symptoms
Respiratory: Reports no symptoms
Cardiac: Reports no symptoms
ABD/GI: Reports abdominal pain and diarrhea
: Reports no symptoms
Musculoskeletal: Reports no symptoms
Skin: Reports no symptoms
Neurological: Reports no symptoms
Endocrine: Reports no symptoms
Hematologic/Lymphatic: Reports no symptoms
Psychiatric: Reports no symptoms
Phy Exam
Physical Exam
Physical Exam:
Physical Exam
General: no apparent distress, not acutely ill
Neck: supple. no meningeal signs. normal posterior pharynx
Heart: s1/s2 regular rate and rhythm, no murmur. equal radial
pulses.
HEENT: Pupils equal round reactive to light, EOMI
Lungs: no acute respiratory distress. clear bilaterally
Abdomen: normal bowel sounds. Bilateral lower abdominal tenderness. No CVAT
Neuro: alert and oriented to person and place but not year. no focal neurological deficits cranial nerves II through XII intact
Skin: no rash
Psychiatric: well kept. interactive and cooperative
Extremities: no edema. no calf tenderness. negative homans. good distal pulses
Course
Orders/Labs/Results
Orders:
Orders
01/16/24 11:22
Complete Blood Count/With Diff Urgent
Comprehensive Metabolic Panel Urgent
Lipase Urgent
01/16/24 11:41
IV Insert/Care/Rem.- Treatment PRN
0.9% Sodium Chloride 500 ml [Nss] 500 ml IV BOLUS
01/16/24 11:43
CT Abd/pelvis W Iv Cont Urgent
Comment:
Reason For Exam: bilateral lower abdominal pain
01/16/24 11:45
Lactic Acid Q4H
Comment: CANCEL 2nd LACTIC ACID IF 1st LACTIC ACID IS LESS THAN 2
01/16/24 12:33
Urinalysis Reflex To Culture Urgent
Date Specimen was Collected: 01/16/24
Time Specimen was Collected: 11:16
Urine Microscopic Reflex Cult Urgent
Urine Culture Urgent
PARVIZ Source: U
Specimen Description:
Date Specimen was Collected: 01/16/24
Time Specimen was Collected: 11:16
Abnormal Lab Results
01/16/24 01/16/24
11:22 12:33
RBC 2.47 L 10^6/uL
(4.70-6.10)
Hgb 7.9 L g/dL
(13.0-18.0)
Hct 24.4 L %
(39.0-52.0)
MCV 98.8 H fL
(80.0-94.0)
MCH 32.0 H pg
(27.0-31.0)
MCHC 32.4 L g/dL
(33.0-37.0)
RDW 19.0 H %
(11.5-14.5)
Abs Immat Gran (auto) 0.1 H 10^3/uL
(0-0.05)
Absolute Lymphs (auto) 0.5 L 10^3/uL
(1.2-3.4)
Immature Gran % 1.2 H %
(0-0.5)
Neutrophils % 83.8 H %
(42.2-75.2)
Lymphocytes % 7.4 L %
(20.5-51.1)
Carbon Dioxide 17 L mmol/L
(22-30)
BUN 37 H mg/dl
(9-20)
Creatinine 1.5 H mg/dL
(0.7-1.3)
Glucose 136 H mg/dl
(70-99)
Calcium 7.7 L mg/dl
(8.4-10.2)
Alkaline Phosphatase 349 H U/L
(38-126)
Total Protein 6.2 L g/dl
(6.3-8.2)
Ur Occult Blood Reflex 3+ A
(Negative)
Leukocyte Esterase Rfl 2+ A
(Negative)
Urine RBC 11-15 A /HPF
(0-2)
Urine WBC (Reflex) 21-25 A /HPF
(0-5)
Urine Bacteria (Reflex) Moderate A
(Negative)
01/16/24 11:22
01/16/24 11:22
Vital Signs
Initial and Last Documented VS:
Initial Vital Signs
Temp Pulse Resp Pulse Ox
99.1 F 106 20 96
01/16/24 11:10 01/16/24 11:10 01/16/24 11:10 01/16/24 11:10
Last Documented Vital Signs
Temp Pulse Resp BP Pulse Ox
99.3 F 91 18 92/57 100
01/16/24 11:30 01/16/24 14:11 01/16/24 14:11 01/16/24 14:11 01/16/24 14:11
MDM/Problems Addressed
Differential Diagnosis Includes:
UTI, colitis, diverticulitis
MDM/Problems Addressed:
83-year-old male with colitis and UTI. No signs diverticulitis. Metastatic prostate cancer. Acute renal failure.
Chronic conditions affecting care: HTN and Cancer (prostate)
Acute Exacerbation and/or Progression of Chronic Illness: HTN and Cancer (prostate)
*Radiology
Radiology exam reviewed: radiology read reviewed (ct a/p: colitis, cystitis, metastatic prostate cancer)
*Pulse Oximetry
Patient hypoxic: no
*EKG
Interpreted by ED Provider?: NA
*Assistant Director Of Nursing Interpretation
Rate: Assistant Director Of Nursing- N/A
*Critical Care Note
Total Time (30-74mins, 75-104mins- exclusive of procedures): Not Applicable
Patient Management
Social determinants of health affecting care: Living situation and Strong social support
Discussion with other providers: Hospitalist
Escalation/DeEscalation of care consider admission/obs:
admit indicated
ED Attending Note
-
Portions of this chart may have been created with voice recognition software.� Occasional wrong word or��sound alike� substitutions may have occurred due to the inherent limitations of voice recognition software.
Discharge Plan
Departure
Patient Disposition: Admit
Date of Disposition: 01/16/24
Time of Disposition: 14:20
Admit to: IMU
Presentation/result/management discussed w/ accepting MD/DO: Hospitalist
Patient with high blood pressure during this ER visit?: No
Condition: Fair
Discharge Problem:
Acute UTI, Colitis, Acute renal failure
Prescriptions:
No Action
cyanocobalamin (vitamin B-12) 1,000 mcg Tablet
1,000 mcg PO DAILY
ascorbic acid (vitamin C) [Vitamin C] 500 mg Tablet
500 mg PO DAILY
tamsulosin [Flomax] 0.4 mg Capsule
0.4 mg PO BID
finasteride 5 mg Tablet
5 mg PO QPM
ramipril 10 mg Capsule
2.5 mg PO DAILY
cholecalciferol (vitamin D3) [Vitamin D3] 25 mcg (1,000 unit) Tablet
25 mcg PO DAILY
Xtandi 400 mg tablet
1,600 mg PO DAILY
atorvastatin 10 mg Tablet
10 mg PO DAILY
donepezil 10 mg Tablet
20 mg PO HS
calcium carbonate [Calcium 600] 600 mg calcium (1,500 mg) Tablet
600 mg PO DAILY
coenzyme Q10 [CoQ-10] 100 mg Capsule
100 mg PO QPM
Xgeva 120 mg/1.7 mL (70 mg/mL) Solution
120 mg SC Q4W
AZO D-Mannose 500 mg Capsule
500 mg PO QPM
Lupron
1 unit SC Q6M
Visbiome
1 cap PO DAILY
phenazopyridine [Pyridium] 200 mg tablet
200 mg PO BID PRN (Reason: burning with urination) 4 Days Qty: 8 0RF
amoxicillin-pot clavulanate [Augmentin] 500-125 mg tablet
1 tab PO BID 5 Days Qty: 10 0RF
Referrals:
Ayleen Botello MD [Family Provider] -
Interventions
Interventions:
*Risk Screen - Suicide Last Done: 01/16/24 11:10
*General Assessment Last Done: 01/16/24 11:10
*Neglect/Abuse Screening Last Done: 01/16/24 11:10
*ED COVID-19 Vaccine History Last Done: 01/16/24 11:46
FI-Veoggq-Xachzmwwfd Assessment Last Done: 01/16/24 11:46
Discharge Date and Time
Print Language: POLISH
[2024-01-16 11:50] LABS: ALT (SGPT) 18 U/L (0-50); AST (SGOT) 22 U/L (17-59); Albumin 3.7 g/dl (3.5-5.0); Alkaline Phosphatase 349 U/L (38-126); Blood Urea Nitrogen 37 mg/dl (9-20); Calcium 7.7 mg/dl (8.4-10.2); Carbon Dioxide 17 mmol/L (22-30); Chloride 106 mmol/L (98-107); Estimated Creatinine Clearance 31 ml/min; Glucose 136 mg/dl (70-99); Lipase 52 U/L (23-300); Potassium 4.2 mmol/L (3.5-5.1); Sodium 137 mmol/L (135-145); Total Bilirubin 0.8 mg/dl (0.2-1.3); Total Protein 6.2 g/dl (6.3-8.2); eGFR 45.62
[2024-01-16] MEDS: NSS 500 IV (11:52)
[2024-01-16 12:13] LABS: Lactic Acid 1.5 mmol/L (0.7-2.0)
[2024-01-16 12:29] LABS: % Basophils 0.3 % (0-2); % Eosinophils 0.4 % (0-6); % Immature Granulocytes 1.2 % (0-0.5); % Lymphocytes 7.4 % (20.5-51.1); % Monocytes 6.9 % (1.7-9.3); % Neutrophils 83.8 % (42.2-75.2); Absolute Immature Granulocytes 0.1 10^3/uL (0-0.05); Absolute Lymphocytes 0.5 10^3/uL (1.2-3.4); Absolute Monocytes 0.5 10^3/uL (0.1-0.6); Absolute Neutrophils 6.1 10^3/uL (1.4-6.5); Nucleated Red Blood Cells % 0 % (-)
[2024-01-16 13:02] LABS: Urine Albumin Trace (Neg - Trace); Urine Bilirubin Negative (Negative); Urine Character Slightly Cloudy (Clear); Urine Color Yellow; Urine Glucose Negative (Negative); Urine Ketone Negative (Negative); Urine Leukocyte 2+ (Negative); Urine Nitrite Negative (Negative); Urine Occult Blood 3+ (Negative); Urine Urobilinogen Negative (Neg - 1+)
[2024-01-16 13:11] LABS: Urine Mucus Few
[2024-01-16 13:12] LABS: Urine Bacteria Moderate (Negative); Urine White Cell 21-25 /HPF (0-5)
--- NOTE | 2024-01-16 14:19 | HPS.HSE ---
Family Physician
-
Family Physician: Ayleen Botello
Chief Complaint
-
abdominal pain and diarrhea
History of Present Illness
83 yo male with past medical history for prostate cancer, hyperlipidemia, BPH, dementia, hypertension presented to us with lower abdominal pain associate with diarrhea for past few days . Patient stated nonbloody liquid stools. Patient denied
nausea or vomiting .patient denied any fever, chills, runny nose, congestion, cough .patient denied chest pain or short of breath .patient has Fry catheter in place.
Patient was noted and hypotension, positive urinalysis , CT with colitis , admitting for further management
Patient underwent button vaporization TURP on 01/06. After the procedure patient was not able to void. Fry catheter was placed. Patient was sent home on Augmentin and Pyridium. he was supposed to follow up with urology for Fry removal, but
came here instead.
Medical History
Past Medical History
Past Medical History: Reports Other
Additional Past Medical History:
Hyperparathyroidism
UTI
Colonic polyps
Cataract
Skin cancer
BPH
Prostate cancer
Bilateral renal cyst
Macrocytic anemia
Memory loss
Past Surgical History: Reports Other
Additional Past Surgical History:
Tonsillectomy
Adenoidectomy
Mohs surgery
Bilateral cataract extraction
Social History
Tobacco: Non-smoker
Alcohol: Occasional
Drug: None
Personal:
Living: With Family
Family History
Family History: Not pertinent
Allergies / Home Medications
Allergies reflects when Allergies were last updated in [facility].
Home Medications with original date entered in [facility]
Allergy/Medication List:
Allergies
Allergy/AdvReac Type Severity Reaction Status Date / Time
Sulfa (Sulfonamide Allergy Unknown Verified 01/16/24 11:10
Antibiotics)
Home Medications
ascorbic acid (vitamin C) 500 mg tablet (Vitamin C) 500 mg PO DAILY 05/23/23
cholecalciferol (vitamin D3) 25 mcg (1,000 unit) tablet (Vitamin D3) 25 mcg PO DAILY 05/23/23
cyanocobalamin (vitamin B-12) 1,000 mcg tablet 1,000 mcg PO DAILY 05/23/23
finasteride 5 mg tablet 5 mg PO QPM 05/23/23
tamsulosin 0.4 mg capsule (Flomax) 0.4 mg PO BID 05/23/23
enzalutamide 40 mg tablet (Xtandi) 160 mg PO DAILY ##0 12/06/23
Lactobac no.2-Bifidobac no.1-S. thermo 112.5 billion cell capsule (Visbiome) 1 cap PO DAILY ##0 01/03/24
atorvastatin 10 mg tablet 10 mg PO QPM 01/03/24
calcium carbonate (Calcium 600) 600 mg PO TID 01/03/24
coenzyme Q10 100 mg capsule (CoQ-10) 100 mg PO QPM 01/03/24
d-mannose 500 mg capsule (AZO D-Mannose) 500 mg PO QPM 01/03/24
denosumab 120 mg/1.7 mL (70 mg/mL) subcutaneous solution (Xgeva) 120 mg SC Q4W 01/03/24
donepezil 10 mg tablet 10 mg PO HS 01/03/24
leuprolide acetate (6 month) 45 mg intramuscular syringe kit (Lupron Depot) 45 mg IM [id number] ##0 01/03/24
ramipril 2.5 mg capsule 2.5 mg PO DAILY 01/16/24
Review of Systems
-
Constitutional: Reports No Symptoms
EENT: Reports No Symptoms
Respiratory: Reports No Symptoms
Cardiac: Reports No Symptoms
Abdomen/GI: Reports Abdominal Pain and Diarrhea
: Reports No Symptoms
Musculoskeletal: Reports No Symptoms
Skin: Reports No Symptoms
Neurological: Reports No Symptoms
Endocrine: Reports No Symptoms
Hematologic/Lymphatic: Reports No Symptoms
Psych: Reports No Symptoms
Physical Exam
Vital Signs
Vital Signs
Temp Pulse Resp BP Pulse Ox
99.3 F 91 18 92/57 100
01/16/24 11:30 01/16/24 14:11 01/16/24 14:11 01/16/24 14:11 01/16/24 14:11
Physical Exam
General: Well Developed, Well Nourished and No Apparent Distress
HEENT: NormoCephalic, Moist mucous membranes and Atraumatic
Respiratory: Clear
Cardiac: S1/S2 and Regular Rhythm; No Murmur or Rub
GI: Soft, Normal Bowel Sounds and Tender; No Organomegaly
Rectal: Deferred by Provider
Musculoskeletal: No Clubbing, No Cyanosis and No Edema
Skin: No Rash
Neuro: AO x 3 and Nonfocal/grossly intact
Psych: Calm
Laboratory Results
-
01/16/24 11:22
01/16/24 11:22
Laboratory Results
Lactic Acid Cancelled 01/16/24 15:45
Total Bilirubin 0.8 mg/dl (0.2-1.3) 01/16/24 11:22
AST 22 U/L (17-59) 01/16/24 11:22
ALT 18 U/L (0-50) 01/16/24 11:22
Alkaline Phosphatase 349 U/L (38-126) H 01/16/24 11:22
Lipase 52 U/L (23-300) 01/16/24 11:22
Data Reviewed
-
CT Scan: Report Reviewed by me
Lab Data: Labs Reviewed by me
Impression/Plan
-
# Colitis
- CT abdomen pelvis with impression of Widespread predominantly sclerotic bony metastatic disease again seen.Fry catheter within virtually completely empty urinary bladder with at least relative wall thickening. Cannot exclude infection such as
cystitis. Suggest correlation with urinalysis.Punctate low-attenuation hepatic lesion too small to characterize.Bilateral renal cysts, one with posterior wall calcification versus adjacent nonobstructing calculus/dystrophic calcification, unchanged.
Symmetric renal excretion.Markedly limited evaluation of intestinal tract without oral contrast. Cannot exclude thickening of the wall of at least the proximal sigmoid colon such as colitis.
-clear liquid diet,advance as tolerated
-IV Zosyn continued
-stool for culture, c diff, norovirus
#cystitis
-Urine culture pending
-iv Zosyn continued
# Metastatic prostate cancer
-Following [facility]
-on Lupron/Xtandi/Xgeva
-01/06: s/p button vaporization TURP
-Fry cath placed afterwards for urinary retention.
-Dc Fry in AM, urology consulted.
# Acute kidney injury/metabolic acidosis likely dehydration
-CO2 17, creatinine 1.5, BUN 37
-Received normal saline 1 L in ER
-Fluids continued
-Monitor BMP
#hypotension likely hypovolemic
-Continue fluids
-hold ramipril
#dementia
-Aricept continued
# Hyperlipidemia
-Statin continued
# Anemia of chronic disease
-Hemoglobin stable at 7.9
-No active bleeding
-Continue to monitor
#BPH
-finasteride, Flomax continued
#DVT prophylaxis
-heparin sq
#CODE status
-full code
--- NOTE | 2024-01-16 15:18 | W.PN.UPDATE ---
Update Note
Progress Note Update
This is an addendum to the H&P written by Edda Tripp.� Patient seen and examined independently with C[employer] ST[employer]PER.��
83-year-old male past medical history of prostate cancer with bony metastases status post TURP on 01/06 with placement of Fry at that time, hypertension, hypercholesteremia, presenting with lower abdominal pain and diarrhea for the past few days.
CT abdomen pelvis shows possible cystitis, possible proximal sigmoid colon infection such as colitis.
Clinical presentation consistent with colitis with possible UTI associated with hypotension.� Labs show JV, chronic macrocytic anemia.� Urinalysis suggesting possible UTI with 21-25 WBC although patient does have Fry catheter.
Clear liquid diet.� IV fluids.� Check C. difficile, stool culture, norovirus.� Zosyn to treat acute colitis/cystitis.� Patient was supposed to have Fry catheter removed today so voiding trial tomorrow morning�and urology will see in the morning.
[2024-01-16] MEDS: ZOSYN 50 IV ×2 (15:39→21:45)
[2024-01-16] MEDS: LIPITOR 10 MG PO (17:41)
[2024-01-16] MEDS: PROSCAR 5 MG PO (17:41)
[2024-01-16] MEDS: OSCAL CAL 500 500 MG PO ×2 (17:41→20:01)
[2024-01-16] MEDS: NSS 1000 IV (17:41)
[2024-01-16] MEDS: HEPARIN 5000 UNITS SC (20:01)
[2024-01-16] MEDS: FLOMAX 0.4 MG PO (20:01)
--- NOTE | 2024-01-16 20:34 | W.PN.UPDATE ---
Update Note
Progress Note Update
Stool is positive for C- Diff, oral vancomycin ordered.
[2024-01-16] MEDS: ARICEPT 10 MG PO (21:01)
[2024-01-16] MEDS: FIRVANQ 125 MG PO (23:25)
[2024-01-17] VITALS (16 sets, daily range): BP systolic 90–128; BP diastolic 34–98; BMI 22.6
[2024-01-17] MEDS: ZOSYN 50 IV ×2 (03:39→10:40)
[2024-01-17 03:43] LABS: Hematocrit 21.5 % (39.0-52.0); Hemoglobin 7.1 g/dL (13.0-18.0); Mean Corpuscular Hgb 32.1 pg (27.0-31.0); Mean Corpuscular Volume 97.3 fL (80.0-94.0); Mean Platelet Volume 9.8 fL (7.4-10.4); Platelet Count 226 10^3/uL (130-400); Red Blood Cell Count 2.21 10^6/uL (4.70-6.10); Red Cell Dist. Width 19.3 % (11.5-14.5); White Blood Cell Count 6.9 10^3/uL (4.8-10.8)
--- NOTE | 2024-01-17 04:32 | PTCARENOTE ---
Call received from lab that patient is cdiff positive. call center operations manager provider made aware and ordered oral vanco.
[2024-01-17 04:34] LABS: Blood Urea Nitrogen 27 mg/dl (9-20); Calcium 7.6 mg/dl (8.4-10.2); Carbon Dioxide 16 mmol/L (22-30); Chloride 110 mmol/L (98-107); Estimated Creatinine Clearance 39 ml/min; Glucose 99 mg/dl (70-99); Sodium 138 mmol/L (135-145); eGFR 54.17
--- NOTE | 2024-01-17 04:43 | PTCARENOTE ---
Addendum entered by Nelida Tovar RN 01/17/24 05:35:
heme test negative.
Original Note:
Patient hgb dropped from 7.9 to 7.1. NO signs of bleeding. Patient also hypotensive with last map of 51. call center specialist provider made aware and ordered to heme test stools and administer a 500 ml NS bolus.
[2024-01-17] MEDS: NSS 500 IV (04:47)
[2024-01-17] MEDS: FIRVANQ 125 MG PO ×4 (05:19→23:17)
[2024-01-17] MEDS: NSS 1000 IV ×2 (05:42→19:02)
--- NOTE | 2024-01-17 05:55 | PTCARENOTE ---
Patient refusing for babin to be removed this am. He stated he 'will only let gabale take it out, he put it in. Will pass along to day shift.
--- NOTE | 2024-01-17 08:30 | PTCARENOTE ---
Patient received from restaurant shift leader. Patient resting comfortably in bed. AAOx2, VSS. No events noted overnight. No complaints of pain at this time. NS @ 80mL/hr. Patient currently with babin, questionable about removing. Will clarify with
Urology. Clear liquid diet. No tests scheduled. C-diff +. Call betts in reach.
--- NOTE | 2024-01-17 08:44 | W.PN.HOSP.TC ---
Today's Communication/Plan
-
see bold
Assessment / Plan
Assessment / Plan
HPI: 83 yo male with past medical history for prostate cancer, hyperlipidemia, BPH, dementia, hypertension presented to us with lower abdominal pain associate with diarrhea for past few days . Patient stated nonbloody liquid stools. Patient denied
nausea or vomiting .patient denied any fever, chills, runny nose, congestion, cough .patient denied chest pain or short of breath .patient has Fry catheter in place. Patient was noted and hypotension, positive urinalysis , CT with colitis ,
admitting for further management. Patient underwent button vaporization TURP on 01/06. After the procedure patient was not able to void. Fry catheter was placed. Patient was sent home on Augmentin and Pyridium. he was supposed to follow up with
urology for Fry removal, but came here instead.
# C. diff colitis
- CT abdomen pelvis with impression of Widespread predominantly sclerotic bony metastatic disease again seen.Fry catheter within virtually completely empty urinary bladder with at least relative wall thickening. Cannot exclude infection such as
cystitis. Suggest correlation with urinalysis.Punctate low-attenuation hepatic lesion too small to characterize.Bilateral renal cysts, one with posterior wall calcification versus adjacent nonobstructing calculus/dystrophic calcification, unchanged.
Symmetric renal excretion.Markedly limited evaluation of intestinal tract without oral contrast. Cannot exclude thickening of the wall of at least the proximal sigmoid colon such as colitis.
Advance to low residue, continue oral vancomycin
# UTI ruled out
Appreciate ID input, urine culture negative, Zosyn discontinued
#Anemia
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
Hemoglobin 6.9, transfuse 1 unit RBC today
# Metastatic prostate cancer
-Following [facility]
-on Lupron/Xtandi/Xgeva
-01/06: s/p button vaporization TURP
-Fry cath placed afterwards for urinary retention.
-C/s oncology
# Acute kidney injury
# NAGMA
Improving on IV fluids, start sodium bicarb
#hypotension likely hypovolemic
-Continue fluids
-hold ramipril
#dementia
-Aricept continued
# Hyperlipidemia
-Statin continued
#BPH
-finasteride, Flomax continued
DVT prophylaxis�subcu Lovenox
Full code
Updated daughter on phone 01/16
Total time spent to see the patient on the floor, examine the patient, review data and lab results, discuss treatment plan with patient, nursing staff around 55 minutes.
Physical Exam
General: Appears chronically debilitated, no acute distress
HEENT: Normocephalic, Atraumatic, EOMI, MMM
Respiratory: Clear to Auscultation bilaterally
Cardiac: Normal S1/S2, Regular Rate and Rhythm
GI: Soft, Nontender, Nondistended, Normal Bowel Sounds
Extremities: No Clubbing, Cyanosis, or Edema
Neuro: Nonfocal/Grossly Intact
Anticipated Discharge: > 48 hours
Subjective/Interval History
-
Date of Service: January 17, 2024
Patient continues to have abdominal cramping, diarrhea, same from previous. No blood in the diarrhea. Nursing staff reports mild hematuria. No fever, no vomiting.
Objective Data
-
Labs:
Laboratory Results
01/17/24 01/17/24 01/17/24
03:35 11:45 19:45
WBC 6.9
Hgb 7.1 L Pending Pending
Hct 21.5 L Pending Pending
Plt Count 226
Sodium 138
Potassium 4.0
Chloride 110 H
Carbon Dioxide 16 L
BUN 27 H
Creatinine 1.3
Glucose 99
Calcium 7.6 L
Vital Signs:
Vital Signs
Temp Pulse Resp BP Pulse Ox
98.1 F 84 18 102/55 96
01/17/24 07:11 01/17/24 06:00 01/17/24 06:00 01/17/24 06:00 01/17/24 05:53
I&O
01/16/24 01/17/24 01/18/24
06:59 06:59 06:59
Intake Total 1010 / 1010
Output Total 1375 / 1375
Balance -365 / -365
[2024-01-17] MEDS: HEPARIN 5000 UNITS SC ×2 (10:38→19:42)
[2024-01-17] MEDS: FLOMAX 0.4 MG PO ×2 (10:38→19:42)
[2024-01-17] MEDS: VITAMIN D3 (cholecalciferol) 25 MCG PO (10:39)
[2024-01-17] MEDS: OSCAL CAL 500 500 MG PO ×3 (10:39→19:42)
[2024-01-17] MEDS: SODIUM BICARBONATE 1300 MG PO ×3 (10:39→19:42)
--- NOTE | 2024-01-17 11:28 | CON.ID ---
Consultation
-
Date/Time Consultation Requested: 01/17/2024 1105
Date/Time Consultation Performed: 01/17/2024 1124
Requesting Provider: Dr. Logan
Performing Provider: Dr. Dillon
Reason for Consultation: UTI; C. difficile colitis
Chief Complaint / Past History
History of Present Illness
Roderick Neves is an 83-year-old man with a significant past medical history of prostate cancer with mets to the bone being evaluated at the request of Dr. Logan in regards to complicated urinary tract infection and C. difficile. History is obtained
from chart review, along with patient interview.
The patient recently underwent a button vaporization TURP on 01/07/2024. He was discharged to home on 01/07 on Augmentin, to complete a 5-day course (through 01/12).
He presents to the emergency room on 01/15 complaining of lower abdominal pain, along with intermittent diarrhea which started approximately 3 days prior. He denies any fevers. Workup in the emergency room did not reveal a leukocytosis, but C.
difficile testing was found to be positive. Infectious Diseases is asked to comment upon further antimicrobial therapy.
At present, he reports mild left lower quadrant discomfort. He reports prior diarrhea was extremely watery, without any consistency.
Past History
Additional Past Medical History:
Metastatic prostate cancer
Anemia
Dyslipidemia
HTN
Thyroid disease
Additional Past Surgical History:
Button TURP
Allergy History:
Sulfa (Sulfonamide Antibiotics) Allergy (Verified 01/16/24 11:10)
Unknown
Medications Reviewed: Yes
Current Antibiotics:
Zosyn 2.25 g IV every 6 hours
Vancomycin 125 mg p.o. every 6 hours
Social History
Tobacco: Non-Smoker
Alcohol: None
Drug: None
Review of Systems
Vital Signs
Temp Pulse Resp BP Pulse Ox
98.2 F 84 18 102/55 97
01/17/24 10:12 01/17/24 06:00 01/17/24 06:00 01/17/24 06:00 01/17/24 09:17
Physical Exam
Physical Exam
Constitutional: No Acute Distress, Comfortable, Chronically Ill and Non-toxic
Head: Normocephalic
Eyes: Pupils Equal, Pupils Round, No Conjunctival Hemorrhage and Sclera Anicteric
Oral: No Thrush and No Ulcers
Cardiovascular: Regular Rate and S1/S2; Negative S3/S4
Pulmonary: Negative Wheezes, Rales or Rhonchi
Gastrointestinal: Soft, Tender (Mild, LLQ), Non Distended, Normal Bowel Sounds, No Rebound and No Guarding
Extremities: Negative Edema, Cyanosis or Erythema
Skin: Warm and Dry; Negative Rash or Jaundice
Neurological: Awake and Alert
Psychological: Calm
.
Lab / Diagnostic Study Results
01/17/24 03:35
Abs Immat Gran (auto) 0.1 10^3/uL (0-0.05) H 01/16/24 11:22
Absolute Neuts (auto) 6.1 10^3/uL (1.4-6.5) 01/16/24 11:22
Absolute Lymphs (auto) 0.5 10^3/uL (1.2-3.4) L 01/16/24 11:22
Absolute Monos (auto) 0.5 10^3/uL (0.1-0.6) 01/16/24 11:22
Absolute Basos (auto) 0.0 10^3/uL (0-0.2) 01/16/24 11:22
Immature Gran % 1.2 % (0-0.5) H 01/16/24 11:22
Neutrophils % 83.8 % (42.2-75.2) H 01/16/24 11:22
Lymphocytes % 7.4 % (20.5-51.1) L 01/16/24 11:22
Monocytes % 6.9 % (1.7-9.3) 01/16/24 11:22
Eosinophils % 0.4 % (0-6) 01/16/24 11:22
Basophils % 0.3 % (0-2) 01/16/24 11:22
Lactic Acid Cancelled 01/16/24 15:45
Microbiology Results
Micro:
01/16/24 19:36 Salmonella/Shigella Culture - Pending
Feces/Stool Campylobacter Culture - Pending
Shiga Toxin Test - Final
No E. coli Shiga Toxin 1 or 2 detected.
Stool Leukocytes - Final
01/16/24 12:33 Urine Culture - Final
Urine NO GROWTH
01/16/24 19:36 C. difficile GDH Antigen & Toxins - Final
Feces/Stool Toxigenic C.difficile Positive
- Final
Negative for Norovirus GI and GII.
Imaging:
01/16/2024 CT abdomen/pelvis with IV contrast: Widespread predominantly sclerotic bony metastasis noted. Fry catheter is in place with in a empty urinary bladder with reactive wall thickening. Markedly limited examination of the intestinal tract
without oral contrast. Cannot exclude thickening of the wall of at least the proximal sigmoid colon. Please see full dictation for additional detail. Film personally viewed.
Assessment / Plan
C. difficile colitis
Recent button TURP
Metastatic prostate cancer
JV; improved
Anemia
Dyslipidemia
HTN
Thyroid disease
Recommendations:
Urine culture negative. Urinalysis reviewed and difficult to interpret in the context of recent button TURP.
Discontinue further Zosyn.
Continue with enteral vancomycin at current dose.
Monitor stool output and consistency.
[2024-01-17 12:59] LABS: Hematocrit 20.7 % (39.0-52.0); Hemoglobin 6.9 g/dL (13.0-18.0)
--- NOTE | 2024-01-17 16:24 | CM ---
Patient with Hx Metastatic prostate cancer with Dx C. diff colitis, anemia. Room air. Receiving IV Abx, IVF. Per nurse; confused at times. PT held today.
Met with patient who was sleeping.
Spoke with patient's Maria;
the patient resides with his in a 2 story house with 2 JOSE F.
The patient has been independent in ADLs and ambulation.
Has only DME is the babin catheter.
No prior VN or SNF.
PCP - Ayleen Botello
Pharmacy - [facility] Becky Farrell
Offered VN and the would like [facility], as she has had them before for herself. states she had a stroke. She seems sharp mentally and was asking relevant questions about her 's status.
Referral placed to [facility].
Plan home with [facility].
[2024-01-17] MEDS: LIPITOR 10 MG PO (17:27)
[2024-01-17] MEDS: PROSCAR 5 MG PO (17:28)
[2024-01-17] MEDS: ARICEPT 10 MG PO (19:42)
[2024-01-18] VITALS (16 sets, daily range): BP systolic 100–126; BP diastolic 53–78; PULSE 77; O2SAT 99
[2024-01-18 04:01] LABS: Hematocrit 22.2 % (39.0-52.0); Hemoglobin 7.4 g/dL (13.0-18.0); Mean Corp Hgb Conc. 33.3 g/dL (33.0-37.0); Mean Corpuscular Hgb 32.6 pg (27.0-31.0); Mean Corpuscular Volume 97.8 fL (80.0-94.0); Platelet Count 198 10^3/uL (130-400); Red Blood Cell Count 2.27 10^6/uL (4.70-6.10); Red Cell Dist. Width 19.7 % (11.5-14.5); White Blood Cell Count 5.3 10^3/uL (4.8-10.8)
[2024-01-18 04:34] LABS: Blood Urea Nitrogen 17 mg/dl (9-20); Calcium 7.4 mg/dl (8.4-10.2); Carbon Dioxide 14 mmol/L (22-30); Chloride 112 mmol/L (98-107); Estimated Creatinine Clearance 46 ml/min; Glucose 94 mg/dl (70-99); Magnesium 1.8 mg/dl (1.6-2.3); Potassium 3.6 mmol/L (3.5-5.1); Sodium 139 mmol/L (135-145); eGFR > 60.00
--- NOTE | 2024-01-18 04:50 | PTCARENOTE ---
No acute events overnight. 1 unit PRBCs transfused. Continues with liquid stools.
--- NOTE | 2024-01-18 04:59 | PTCARENOTE ---
Critical c02 of 14. call worker person provider made aware and ordered IV calcium gluconate and bicarb.
[2024-01-18] MEDS: FIRVANQ 125 MG PO ×4 (05:41→23:27)
[2024-01-18] MEDS: SODIUM BICARBONATE 50 MEQ IV (05:41)
[2024-01-18] MEDS: CALCIUM GLUCONATE 100 IV (05:41)
[2024-01-18] MEDS: VITAMIN D3 (cholecalciferol) 25 MCG PO (07:51)
[2024-01-18] MEDS: FLOMAX 0.4 MG PO ×2 (07:52→20:53)
[2024-01-18] MEDS: OSCAL CAL 500 500 MG PO ×3 (07:52→22:07)
[2024-01-18] MEDS: HEPARIN 5000 UNITS SC ×2 (07:52→20:53)
[2024-01-18] MEDS: SODIUM BICARBONATE 1300 MG PO (07:52)
--- NOTE | 2024-01-18 09:09 | W.PN.HOSP.TC ---
Today's Communication/Plan
-
Stable for med-surg
Assessment / Plan
Assessment / Plan
HPI: 83 yo male with past medical history for prostate cancer, hyperlipidemia, BPH, dementia, hypertension presented to us with lower abdominal pain associate with diarrhea for past few days . Patient stated nonbloody liquid stools. Patient denied
nausea or vomiting .patient denied any fever, chills, runny nose, congestion, cough .patient denied chest pain or short of breath .patient has Fry catheter in place. Patient was noted and hypotension, positive urinalysis , CT with colitis ,
admitting for further management. Patient underwent button vaporization TURP on 01/06. After the procedure patient was not able to void. Fry catheter was placed. Patient was sent home on Augmentin and Pyridium. he was supposed to follow up with
urology for Fry removal, but came here instead.
# C. diff colitis
- CT abdomen pelvis with impression of Widespread predominantly sclerotic bony metastatic disease again seen.Fry catheter within virtually completely empty urinary bladder with at least relative wall thickening. Cannot exclude infection such as
cystitis. Suggest correlation with urinalysis.Punctate low-attenuation hepatic lesion too small to characterize.Bilateral renal cysts, one with posterior wall calcification versus adjacent nonobstructing calculus/dystrophic calcification, unchanged.
Symmetric renal excretion.Markedly limited evaluation of intestinal tract without oral contrast. Cannot exclude thickening of the wall of at least the proximal sigmoid colon such as colitis.
Advance to low residue, continue oral vancomycin D2
# UTI ruled out
Appreciate ID input, urine culture negative, Zosyn discontinued
#Anemia
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
Hemoglobin 7.4 s/p 1 unit RBC on 01/16
Trend hemoglobin, transfuse for hemoglobin less than 7.0
# Metastatic prostate cancer
-Following [facility]/ Dr. Stevenson
-On Lupron/Xgeva (Xtandi to be started later)
-01/07/24 s/p button vaporization TURP
-Appreciate urology input, failed voiding trial 01/16, Fry reinserted
-Maintain Fry upon discharge, follow-up with urology in the office after discharge for void trial
# Acute kidney injury
# NAGMA
Change IV fluids to sodium bicarb, increase oral sodium bicarb
#Hypotension likely hypovolemic
-Resolved, continue IV fluid
-Hold ramipril
#Dementia
-Aricept continued
#Hyperlipidemia
-Statin continued
#BPH
-finasteride, Flomax continued
DVT prophylaxis�subcu Lovenox
Full code
Updated daughter on phone 01/16, 01/17
Total time spent to see the patient on the floor, examine the patient, review data and lab results, discuss treatment plan with patient, nursing staff around 51 minutes.
Physical Exam
General: Appears chronically debilitated, no acute distress
HEENT: Normocephalic, Atraumatic, EOMI, MMM
Respiratory: Clear to Auscultation bilaterally
Cardiac: Normal S1/S2, Regular Rate and Rhythm
GI: Soft, Nontender, Nondistended, Normal Bowel Sounds
Extremities: No Clubbing, Cyanosis, or Edema
Neuro: Nonfocal/Grossly Intact
Anticipated Discharge: 24 - 48 hours
Subjective/Interval History
-
Date of Service: January 18, 2024
Patient continues to have abdominal pain, and diarrhea, unchanged from admission. He is tolerating his low residue diet. No fever. No vomiting.
Objective Data
-
Labs:
Laboratory Results
01/18/24 01/18/24
03:44 03:45
WBC 5.3
Hgb 7.4 L
Hct 22.2 L
Plt Count 198
Sodium 139
Potassium 3.6
Chloride 112 H
Carbon Dioxide 14 L*
BUN 17
Creatinine 1.1
Glucose 94
Calcium 7.4 L
Vital Signs:
Vital Signs
Temp Pulse Resp BP Pulse Ox
98.0 F 70 13 119/60 98
01/18/24 03:05 01/18/24 06:00 01/18/24 06:00 01/18/24 06:00 01/18/24 06:00
I&O
01/17/24 01/18/24 01/19/24
06:59 06:59 06:59
Intake Total 1010 / 1010 2770 / 2770
Output Total 1375 / 1375 2225 / 2225
Balance -365 / -365 545 / 545
[2024-01-18] MEDS: SODIUM BICARBONATE 1075 MEQ IV (10:45)
[2024-01-18] MEDS: POTASSIUM PHOSPHATE 259.0909 MEQ IV (10:45)
--- NOTE | 2024-01-18 11:17 | PTCARENOTE ---
Received patient from previous RN. Patient Ax3 and sitting comfortably in chair. Patient walked around his room with a walker and assistance with PT. Call betts within reach.
--- NOTE | 2024-01-18 11:38 | W.PN.ID1 ---
Date of Service
Date of Service: January 18, 2024
Today's Communication
Continue with enteral vancomycin
Assessment / Plan
C. difficile colitis
Recent button TURP
Metastatic prostate cancer
JV; improved
Anemia
Dyslipidemia
HTN
Thyroid disease
Recommendations:
Urine culture negative. (Urinalysis difficult to interpret in the context of recent button TURP.)
Continue with enteral vancomycin. Would anticipate a 10 day course.
Monitor stool output and consistency.
����������������������������������������������������������
Chief Complaint
-: C-diff
Subjective / Review of Systems
Patient seen and examined. Nursing reports 1 episode of diarrhea overnight.
Review of Systems: No Abdominal Pain
Vital Signs / Physical Exam
Vital Signs
Vital Signs
Temp Pulse Resp BP Pulse Ox
98.5 F 75 20 102/58 98
01/18/24 07:30 01/18/24 08:00 01/18/24 08:00 01/18/24 08:00 01/18/24 08:00
Physical Exam
Constitutional: Comfortable, Chronically Ill and Non-toxic
Eyes: Sclera Anicteric
Cardiovascular: S1/S2; Negative S3/S4
Pulmonary: Clear and Non Labored
Gastrointestinal: Soft, Non Distended, Normal Bowel Sounds, No Rebound and No Guarding
Genito-Urinary: Fry and Clear Urine
Neurological: Awake and Alert
Psychological: Calm
Objective Data
Lab Data
Lab Results
01/18/24 03:45
01/18/24 03:44
Estimated Creat Clear 46 ml/min 01/18/24 03:44
Lactic Acid Cancelled 01/16/24 15:45
Total Bilirubin 0.8 mg/dl (0.2-1.3) 01/16/24 11:22
AST 22 U/L (17-59) 01/16/24 11:22
ALT 18 U/L (0-50) 01/16/24 11:22
Alkaline Phosphatase 349 U/L (38-126) H 01/16/24 11:22
Most recent labs reviewed.
Micro Results:
01/16/24 19:36 Salmonella/Shigella Culture - Final
Feces/Stool No Salmonella, Shigella, Aeromonas or Plesiomonas species
isolated.
Campylobacter Culture - Final
No Campylobacter species isolated.
Shiga Toxin Test - Final
No E. coli Shiga Toxin 1 or 2 detected.
Stool Leukocytes - Final
01/16/24 12:33 Urine Culture - Final
Urine NO GROWTH
01/16/24 19:36 C. difficile GDH Antigen & Toxins - Final
Feces/Stool Toxigenic C.difficile Positive
- Final
Negative for Norovirus GI and GII.
Imaging:
01/16/2024 CT abdomen/pelvis with IV contrast: Widespread predominantly sclerotic bony metastasis noted. Fry catheter is in place with in a empty urinary bladder with reactive wall thickening. Markedly limited examination of the intestinal tract
without oral contrast. Cannot exclude thickening of the wall of at least the proximal sigmoid colon. Please see full dictation for additional detail. Film personally viewed.
[2024-01-18] MEDS: NEUTRA-PHOS POWDER PACKET 250 MG PO ×3 (12:41→22:07)
[2024-01-18] MEDS: TYLENOL 650 MG PO ×2 (12:42→20:54)
[2024-01-18] MEDS: PROSCAR 5 MG PO (17:04)
[2024-01-18] MEDS: SODIUM BICARBONATE 1950 MG PO ×2 (17:04→22:07)
[2024-01-18] MEDS: LIPITOR 10 MG PO (17:04)
--- NOTE | 2024-01-18 17:11 | CM ---
Patient with Hx Metastatic prostate cancer with Dx C. diff colitis, anemia. Receiving IVF w/ Bicarb, PO Vanco. PT recommends HH.
CM continuing to follow.
Plan home with Yseika LUCERO.
--- NOTE | 2024-01-18 18:34 | PTCARENOTE ---
Pt transferred to [facility] with Firvanq and next bag of Sodium BiCarb. Report given to
[2024-01-18] MEDS: ARICEPT 10 MG PO (22:07)
[2024-01-19] VITALS (7 sets, daily range): BP systolic 97–138; BP diastolic 49–72; PULSE 90
[2024-01-19] MEDS: SODIUM BICARBONATE 1075 MEQ IV ×2 (00:33→17:49)
[2024-01-19] MEDS: FIRVANQ 125 MG PO ×4 (05:40→23:05)
--- NOTE | 2024-01-19 07:31 | W.PN.HOSP.TC ---
Today's Communication/Plan
-
Poss dc tomorrow
Assessment / Plan
Assessment / Plan
HPI: 83 yo male with past medical history for prostate cancer, hyperlipidemia, BPH, dementia, hypertension presented to us with lower abdominal pain associate with diarrhea for past few days . Patient stated nonbloody liquid stools. Patient denied
nausea or vomiting .patient denied any fever, chills, runny nose, congestion, cough .patient denied chest pain or short of breath .patient has Fry catheter in place. Patient was noted and hypotension, positive urinalysis , CT with colitis ,
admitting for further management. Patient underwent button vaporization TURP on 01/06. After the procedure patient was not able to void. Fry catheter was placed. Patient was sent home on Augmentin and Pyridium. he was supposed to follow up with
urology for Fry removal, but came here instead.
# C. diff colitis
- CT abdomen pelvis with impression of Widespread predominantly sclerotic bony metastatic disease again seen.Fry catheter within virtually completely empty urinary bladder with at least relative wall thickening. Cannot exclude infection such as
cystitis. Suggest correlation with urinalysis.Punctate low-attenuation hepatic lesion too small to characterize.Bilateral renal cysts, one with posterior wall calcification versus adjacent nonobstructing calculus/dystrophic calcification, unchanged.
Symmetric renal excretion.Markedly limited evaluation of intestinal tract without oral contrast. Cannot exclude thickening of the wall of at least the proximal sigmoid colon such as colitis.
Tolerating low residue, continue oral vancomycin D3
# UTI ruled out
Appreciate ID input, urine culture negative, Zosyn discontinued
#Anemia
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
Hemoglobin 7.9, was 7.4 s/p 1 unit packed RBC on 01/16 for Hgb 6.9
Trend hemoglobin, transfuse for hemoglobin less than 7.0
# Metastatic prostate cancer
-Following [facility]/ Dr. Stevenson
-On Lupron/Xgeva (Xtandi to be started later)
-01/07/24 s/p button vaporization TURP
-Appreciate urology input, failed voiding trial 01/16, Fry reinserted
-Maintain Fry upon discharge, follow-up with urology in the office after discharge for void trial
# Acute kidney injury
# NAGMA
Continue IV fluids w/ sodium bicarb, increased oral sodium bicarb
#Hypocalcemia
Corrected calcium for low albumin is 7.5
Check vitamin D levels, start calcium supplements
#Hypophosphatemia
Repleted and resolved
#Hypotension likely hypovolemic
-Resolved, continue IV fluid
-Hold ramipril
#Dementia
-Aricept continued
#Hyperlipidemia
-Statin continued
#BPH
-finasteride, Flomax continued
DVT prophylaxis�subcu Lovenox
Full code
Updated daughter on phone 01/16, 01/17
Total time spent to see the patient on the floor, examine the patient, review data and lab results, discuss treatment plan with patient, nursing staff around 41 minutes.
Physical Exam
General: Appears chronically debilitated, no acute distress
HEENT: Normocephalic, Atraumatic, EOMI, MMM
Respiratory: Clear to Auscultation bilaterally
Cardiac: Normal S1/S2, Regular Rate and Rhythm
GI: Soft, Nontender, Nondistended, Normal Bowel Sounds
Extremities: No Clubbing, Cyanosis, or Edema
Neuro: Nonfocal/Grossly Intact
Anticipated Discharge: Within 24 hours
Subjective/Interval History
-
Date of Service: January 18, 2024
Objective Data
-
Vital Signs:
Vital Signs
Temp Pulse Resp BP Pulse Ox
98.0 F 72 15 104/78 97
01/18/24 15:14 01/18/24 16:00 01/18/24 16:00 01/18/24 16:49 01/18/24 16:22
I&O
01/17/24 01/18/24 01/19/24
06:59 06:59 06:59
Intake Total 1010 / 1010 2770 / 2770
Output Total 1375 / 1375 2225 / 2225
Balance -365 / -365 545 / 545
[2024-01-19] MEDS: VITAMIN D3 (cholecalciferol) 25 MCG PO (08:41)
[2024-01-19] MEDS: OSCAL CAL 500 500 MG PO (08:41)
[2024-01-19] MEDS: HEPARIN 5000 UNITS SC (08:41)
[2024-01-19] MEDS: FLOMAX 0.4 MG PO ×2 (08:41→20:39)
[2024-01-19] MEDS: SODIUM BICARBONATE 1950 MG PO (08:41)
[2024-01-19 08:51] LABS: Hemoglobin 7.9 g/dL (13.0-18.0); Mean Corp Hgb Conc. 32.9 g/dL (33.0-37.0); Mean Corpuscular Hgb 31.7 pg (27.0-31.0); Mean Corpuscular Volume 96.4 fL (80.0-94.0); Mean Platelet Volume 10.3 fL (7.4-10.4); Platelet Count 220 10^3/uL (130-400); Red Blood Cell Count 2.49 10^6/uL (4.70-6.10); Red Cell Dist. Width 20.2 % (11.5-14.5)
[2024-01-19] MEDS: TYLENOL 650 MG PO ×2 (08:53→20:39)
[2024-01-19] MEDS: NEUTRA-PHOS POWDER PACKET 250 MG PO ×4 (09:43→21:18)
[2024-01-19 10:12] LABS: Blood Urea Nitrogen 14 mg/dl (9-20); Calcium 6.7 mg/dl (8.4-10.2); Carbon Dioxide 18 mmol/L (22-30); Chloride 111 mmol/L (98-107); Estimated Creatinine Clearance 56 ml/min; Glucose 82 mg/dl (70-99); Magnesium 1.8 mg/dl (1.6-2.3); Phosphorus 2.6 mg/dl (2.5-4.5); Sodium 142 mmol/L (135-145); eGFR > 60.00
[2024-01-19] MEDS: OSCAL 500 + D 500 MG PO ×3 (11:38→21:18)
--- NOTE | 2024-01-19 15:29 | W.PN.ID1 ---
Date of Service
Date of Service: January 19, 2024
Today's Communication
c.w enteral vanc
Assessment / Plan
C. difficile colitis
Recent button TURP
Metastatic prostate cancer
JV; improved
Anemia
Dyslipidemia
HTN
Thyroid disease
Recommendations:
Urine culture negative. (Urinalysis difficult to interpret in the context of recent button TURP.)
Continue with enteral vancomycin. Would anticipate a 10 day course.
Monitor stool output and consistency.
����������������������������������������������������������
Chief Complaint
-: C-diff
Subjective / Review of Systems
alert
no complaints and no abdominal pain
stools becoming formed
Vital Signs / Physical Exam
Vital Signs
Vital Signs
Temp Pulse Resp BP Pulse Ox
98.5 F 71 16 97/57 100
01/19/24 11:36 01/19/24 11:36 01/19/24 11:36 01/19/24 11:36 01/19/24 11:36
Physical Exam
Constitutional: No Acute Distress
Cardiovascular: Regular Rate and S1/S2; Negative Murmur or Rub
Pulmonary: Clear and Symmetric; Negative Wheezes or Rales
Gastrointestinal: Soft, Non Tender, Non Distended and Normal Bowel Sounds
Skin: Warm and Dry; Negative Rash or Jaundice
Objective Data
Lab Data
Lab Results
01/19/24 07:26
01/19/24 07:26
Estimated Creat Clear 56 ml/min 01/19/24 07:26
Lactic Acid Cancelled 01/16/24 15:45
Total Bilirubin 0.8 mg/dl (0.2-1.3) 01/16/24 11:22
AST 22 U/L (17-59) 01/16/24 11:22
ALT 18 U/L (0-50) 01/16/24 11:22
Alkaline Phosphatase 349 U/L (38-126) H 01/16/24 11:22
Most recent labs reviewed.
Micro Results:
01/16/24 19:36 Salmonella/Shigella Culture - Final
Feces/Stool No Salmonella, Shigella, Aeromonas or Plesiomonas species
isolated.
Campylobacter Culture - Final
No Campylobacter species isolated.
Shiga Toxin Test - Final
No E. coli Shiga Toxin 1 or 2 detected.
Stool Leukocytes - Final
01/16/24 12:33 Urine Culture - Final
Urine NO GROWTH
01/16/24 19:36 C. difficile GDH Antigen & Toxins - Final
Feces/Stool Toxigenic C.difficile Positive
- Final
Negative for Norovirus GI and GII.
Imaging:
01/16/2024 CT abdomen/pelvis with IV contrast: Widespread predominantly sclerotic bony metastasis noted. Fry catheter is in place with in a empty urinary bladder with reactive wall thickening. Markedly limited examination of the intestinal tract
without oral contrast. Cannot exclude thickening of the wall of at least the proximal sigmoid colon. Please see full dictation for additional detail. Film personally viewed.
Care Review
Plan reviewed with: Physician (Dr Logan - patient clinically improving)
[2024-01-19] MEDS: PROSCAR 5 MG PO (17:50)
[2024-01-19] MEDS: SODIUM BICARBONATE 1300 MG PO ×2 (17:50→21:18)
[2024-01-19] MEDS: LIPITOR 10 MG PO (17:51)
[2024-01-19] MEDS: LOVENOX 40 MG SC (17:51)
[2024-01-19] MEDS: ARICEPT 10 MG PO (21:18)
[2024-01-20] VITALS (11 sets, daily range): BP systolic 100–127; BP diastolic 46–62; PULSE 95; O2SAT 96
[2024-01-20] MEDS: FIRVANQ 125 MG PO ×3 (05:10→16:33)
[2024-01-20] MEDS: SODIUM BICARBONATE 1075 MEQ IV ×2 (06:04→11:49)
[2024-01-20] MEDS: NEUTRA-PHOS POWDER PACKET 250 MG PO (07:59)
[2024-01-20] MEDS: OSCAL 500 + D 500 MG PO ×2 (07:59→13:47)
[2024-01-20] MEDS: FLOMAX 0.4 MG PO ×2 (07:59→21:21)
[2024-01-20] MEDS: VITAMIN D3 (cholecalciferol) 25 MCG PO (07:59)
[2024-01-20] MEDS: SODIUM BICARBONATE 1300 MG PO ×3 (07:59→21:22)
--- NOTE | 2024-01-20 08:33 | W.PN.HOSP.TC ---
Addendum entered and electronically signed by Nikhil Logan MD 01/20/24 11:14:
Patient complaining of right knee pain, likely from osteoarthritis.
Check right knee x-rays, start lidocaine patch.
Original Note:
Today's Communication/Plan
-
see bold
Assessment / Plan
Assessment / Plan
HPI: 83 yo male with past medical history for prostate cancer, hyperlipidemia, BPH, dementia, hypertension presented to us with lower abdominal pain associate with diarrhea for past few days . Patient stated nonbloody liquid stools. Patient denied
nausea or vomiting .patient denied any fever, chills, runny nose, congestion, cough .patient denied chest pain or short of breath .patient has Fry catheter in place. Patient was noted and hypotension, positive urinalysis , CT with colitis ,
admitting for further management. Patient underwent button vaporization TURP on 01/06. After the procedure patient was not able to void. Fry catheter was placed. Patient was sent home on Augmentin and Pyridium. he was supposed to follow up with
urology for Fry removal, but came here instead.
# C. diff colitis
- CT abdomen pelvis with impression of Widespread predominantly sclerotic bony metastatic disease again seen.Fry catheter within virtually completely empty urinary bladder with at least relative wall thickening. Cannot exclude infection such as
cystitis. Suggest correlation with urinalysis.Punctate low-attenuation hepatic lesion too small to characterize.Bilateral renal cysts, one with posterior wall calcification versus adjacent nonobstructing calculus/dystrophic calcification, unchanged.
Symmetric renal excretion.Markedly limited evaluation of intestinal tract without oral contrast. Cannot exclude thickening of the wall of at least the proximal sigmoid colon such as colitis.
Tolerating low residue, continue oral vancomycin D4
# UTI ruled out
Appreciate ID input, urine culture negative, Zosyn discontinued
#Anemia
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
Hemoglobin 6.8 today, was 7.9, was 7.4 s/p 1 unit packed RBC on 01/16 for Hgb 6.9
Transfuse second unit of packed red blood cells today
# Metastatic prostate cancer
-Following [facility]/ Dr. Stevenson
-On Lupron/Xgeva (Xtandi to be started later)
-01/07/24 s/p button vaporization TURP
-Appreciate urology input, failed voiding trial 01/16, Fry reinserted
-Maintain Fry upon discharge, follow-up with urology in the office after discharge for void trial
# Acute kidney injury
# NAGMA
Continue IV fluids w/ sodium bicarb, oral sodium bicarb
#Hypocalcemia
Corrected calcium for low albumin is 7.5
F/u vitamin D levels, increase calcium supplements
#Hypophosphatemia
Continue to replete
#Hypotension likely hypovolemic
-Resolved, continue IV fluid
-Hold ramipril
#Dementia
-Aricept continued
#Hyperlipidemia
-Statin continued
#BPH
-finasteride, Flomax continued
DVT prophylaxis�subcu Lovenox
Full code
Dispo - PT rec HH
Updated daughter on phone 01/16, 01/17, 01/19
Total time spent to see the patient on the floor, examine the patient, review data and lab results, discuss treatment plan with patient, nursing staff around 55 minutes.
Physical Exam
General: Appears chronically debilitated, no acute distress
HEENT: Normocephalic, Atraumatic, EOMI, MMM
Respiratory: Clear to Auscultation bilaterally
Cardiac: Normal S1/S2, Regular Rate and Rhythm
GI: Soft, Nontender, Nondistended, Normal Bowel Sounds
Extremities: No Clubbing, Cyanosis, or Edema
Neuro: Nonfocal/Grossly Intact
Anticipated Discharge: 24 - 48 hours
Subjective/Interval History
-
Date of Service: January 20, 2024
Tolerating his low residue diet. No abdominal pain, no nausea, no vomiting. Diarrhea improved. No fever.
Objective Data
-
Labs:
Laboratory Results
01/20/24 01/20/24
08:15 08:16
WBC Pending
Hgb Pending
Hct Pending
Plt Count Pending
Sodium Pending
Potassium Pending
Chloride Pending
Carbon Dioxide Pending
BUN Pending
Creatinine Pending
Glucose Pending
Calcium Pending
Vital Signs:
Vital Signs
Temp Pulse Resp BP Pulse Ox
98.1 F 80 14 115/61 98
01/20/24 03:00 01/20/24 03:00 01/20/24 03:00 01/20/24 03:00 01/20/24 03:00
I&O
01/19/24 01/20/24 01/21/24
06:59 06:59 06:59
Intake Total 240 / 240 3060 / 3060
Output Total 950 / 950 2049 / 205
Balance -710 / -710 1010 / 1010
[2024-01-20 10:24] LABS: Hematocrit 20.5 % (39.0-52.0); Hemoglobin 6.8 g/dL (13.0-18.0); Mean Corp Hgb Conc. 33.2 g/dL (33.0-37.0); Mean Corpuscular Hgb 31.8 pg (27.0-31.0); Mean Corpuscular Volume 95.8 fL (80.0-94.0); Mean Platelet Volume 10.5 fL (7.4-10.4); Platelet Count 186 10^3/uL (130-400); Red Blood Cell Count 2.14 10^6/uL (4.70-6.10); Red Cell Dist. Width 19.6 % (11.5-14.5); White Blood Cell Count 4.9 10^3/uL (4.8-10.8)
[2024-01-20 10:29] LABS: Blood Urea Nitrogen 13 mg/dl (9-20); Calcium 6.7 mg/dl (8.4-10.2); Carbon Dioxide 21 mmol/L (22-30); Chloride 108 mmol/L (98-107); Estimated Creatinine Clearance 51 ml/min; Glucose 87 mg/dl (70-99); Magnesium 1.6 mg/dl (1.6-2.3); Phosphorus 2.4 mg/dl (2.5-4.5); Sodium 137 mmol/L (135-145); eGFR > 60.00
[2024-01-20] MEDS: TYLENOL 650 MG PO (11:14)
[2024-01-20] MEDS: CALCIUM GLUCONATE 100 IV (11:48)
[2024-01-20] MEDS: LIDOCAINE 4% PATCH 1 PATCH TOPICAL (11:50)
[2024-01-20] MEDS: NEUTRA-PHOS POWDER PACKET 500 MG PO ×3 (13:48→21:22)
[2024-01-20] MEDS: OSCAL 500 + D 1000 MG PO ×2 (15:26→21:22)
[2024-01-20] MEDS: LOVENOX 40 MG SC (16:33)
[2024-01-20] MEDS: PROSCAR 5 MG PO (16:33)
[2024-01-20] MEDS: LIPITOR 10 MG PO (16:33)
[2024-01-20] MEDS: ARICEPT 10 MG PO (21:21)
[2024-01-21] VITALS (10 sets, daily range): BP systolic 95–120; BP diastolic 55–66; PULSE 79; O2SAT 98–99
[2024-01-21] MEDS: FIRVANQ 125 MG PO ×5 (00:12→23:01)
[2024-01-21] MEDS: TYLENOL 650 MG PO ×2 (00:16→21:30)
[2024-01-21] MEDS: SODIUM BICARBONATE 1075 MEQ IV (04:26)
[2024-01-21 06:47] LABS: Ionized Calcium 0.94 mMOL/L (1.15-1.33)
[2024-01-21 06:54] LABS: Hemoglobin 7.8 g/dL (13.0-18.0); Mean Corp Hgb Conc. 33.9 g/dL (33.0-37.0); Mean Corpuscular Hgb 32.1 pg (27.0-31.0); Mean Corpuscular Volume 94.7 fL (80.0-94.0); Mean Platelet Volume 9.8 fL (7.4-10.4); Platelet Count 183 10^3/uL (130-400); Red Blood Cell Count 2.43 10^6/uL (4.70-6.10); Red Cell Dist. Width 19.2 % (11.5-14.5)
[2024-01-21 07:54] LABS: Blood Urea Nitrogen 12 mg/dl (9-20); Calcium 6.5 mg/dl (8.4-10.2); Carbon Dioxide 19 mmol/L (22-30); Chloride 110 mmol/L (98-107); Estimated Creatinine Clearance 51 ml/min; Glucose 101 mg/dl (70-99); Magnesium 1.5 mg/dl (1.6-2.3); Phosphorus 2.8 mg/dl (2.5-4.5); Sodium 140 mmol/L (135-145); eGFR > 60.00
--- NOTE | 2024-01-21 08:11 | PTCARENOTE ---
patient's calcium level critical at 6.5. Magnesium level 1.5. Dr. Tiwari notified and placing electronic orders for magnesium sulfate and calcium gluconate, will continue to monitor.
[2024-01-21 08:45] LABS: Vitamin D, 25-OH*** 39.9 ng/mL (30-80)
[2024-01-21] MEDS: NEUTRA-PHOS POWDER PACKET 500 MG PO ×4 (09:07→21:27)
[2024-01-21] MEDS: OSCAL 500 + D 1000 MG PO ×3 (09:07→21:28)
[2024-01-21] MEDS: SODIUM BICARBONATE 1300 MG PO ×3 (09:07→21:29)
[2024-01-21] MEDS: VITAMIN D3 (cholecalciferol) 25 MCG PO (09:07)
[2024-01-21] MEDS: FLOMAX 0.4 MG PO ×2 (09:08→20:21)
[2024-01-21] MEDS: LIDOCAINE 4% PATCH 1 PATCH TOPICAL (09:08)
[2024-01-21] MEDS: MAGNESIUM SULFATE 50 IV (09:20)
--- NOTE | 2024-01-21 10:25 | W.PN.HOSP.TC ---
Today's Communication/Plan
-
see A/P
Assessment / Plan
Assessment / Plan
HPI: 83 yo male with past medical history for prostate cancer, hyperlipidemia, BPH, dementia, hypertension presented with lower abdominal pain associate with diarrhea for past few days. Patient stated nonbloody liquid stools.
Patient has Fry catheter in place. Patient was noted hypotension, positive urinalysis, CT with colitis, admitted for further management.
Patient underwent TURP on 01/06. After the procedure patient was not able to void. Fry catheter was placed. Patient was sent home on Augmentin and Pyridium. he was supposed to follow up with urology for Fry removal, but came here instead.
A/P:
# C. diff colitis
CT abdomen pelvis with impression of widespread predominantly sclerotic bony metastatic disease again seen. Fry catheter within virtually completely empty urinary bladder with at least relative wall thickening.
ID on board, cont oral vancomycin
Tolerating low residue
# UTI ruled out
Appreciate ID input, urine culture negative, Zosyn discontinued
# Anemia
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
s/p 2 units PRBC transfusion
Hb today at 7.8
Cont to monitor Hb
# Metastatic prostate cancer
On Lupron/Xgeva (Xtandi to be started later). Follows with [facility]/ Dr. Stevenson
01/07/24 s/p button vaporization TURP
Appreciate urology input, failed voiding trial 01/16, Fry reinserted
Maintain Fry upon discharge, follow-up with urology in the office after discharge for void trial
# Acute kidney injury, resolved
# NAGMA, improved
IV fluids w/ sodium bicarb, oral sodium bicarb
# Hypocalcemia
Vitamin D WNL at 39.9
Cont calcium supplements
IV calcium x1 today
# Hypomagnesemia
replete IV
# Hypophosphatemia
Continue to replete
# Hypotension likely hypovolemic, Resolved
Hold ramipril
# Dementia
Aricept continued
# Hyperlipidemia
Statin continued
# BPH
finasteride, Flomax continued
DVT prophylaxis�subcu Lovenox
Full code
Dispo: PT rec SNF
DW RN
DW daughter on the phone
Anticipated Discharge: 24 - 48 hours
Subjective/Interval History
-
Date of Service: January 21, 2024
Objective Data
-
Labs:
Laboratory Results
01/21/24
06:35
WBC 5.0
Hgb 7.8 L
Hct 23.0 L
Plt Count 183
Sodium 140
Potassium 4.0
Chloride 110 H
Carbon Dioxide 19 L
BUN 12
Creatinine 1.0
Glucose 101 H
Calcium 6.5 L*
Vital Signs:
Vital Signs
Temp Pulse Resp BP Pulse Ox
36.9 C 79 18 100/65 98
01/21/24 07:45 01/21/24 07:45 01/21/24 07:45 01/21/24 07:45 01/21/24 07:45
I&O
01/20/24 01/21/24 01/22/24
06:59 06:59 06:59
Intake Total 3060 / 3060 1350 / 1350
Output Total 2049 2250 / 225
Balance 1010 / 1010 -900 / -900
Review of Systems
-
All other systems: Reviewed and negative
Physical Exam
-
General: Well Developed, Well Nourished, No Apparent Distress, Comfortable and Conversant; Negative Respiratory Distress
HEENT: Normocephalic, Atraumatic, Nose Appears Normal and Ears Appear Normal; Negative Oxygen
Respiratory: Clear to Auscultation and Non Labored Respirations; Negative Accessory Resp Muscle Use
Cardiac: Regular Rhythm and S1/S2
GI: Soft, Nontender, Nondistended and Normal Bowel Sounds
Skin: Warm and Dry
Neuro: Awake, Alert and Oriented
Psych: Calm and Intact Judgement/Insight
Data Reviewed
-
Labs: Labs Reviewed by me, Discussed with Nurse, Discussed with Patient and Discussed with Family
[2024-01-21] MEDS: CALCIUM GLUCONATE 100 IV (10:35)
--- NOTE | 2024-01-21 14:55 | W.PN.ID1 ---
Date of Service
Date of Service: January 21, 2024
Today's Communication
Continue enteral Vanco.
Assessment / Plan
C. difficile colitis
Recent button TURP
Metastatic prostate cancer
JV; improved
Anemia
Dyslipidemia
HTN
Thyroid disease
Recommendations:
Urine culture negative. (Urinalysis difficult to interpret in the context of recent button TURP.)
Continue with enteral vancomycin to complete a 10-day course.
Monitor stool output and consistency. Patient reports that stool is still 'loose'.
����������������������������������������������������������
Chief Complaint
-: C-diff
Subjective / Review of Systems
Review of Systems: No Fever, No Chills, No Abdominal Pain and Diarrhea
Vital Signs / Physical Exam
Vital Signs
Vital Signs
Temp Pulse Resp BP Pulse Ox
98.2 F 75 16 120/56 100
01/21/24 11:37 01/21/24 11:37 01/21/24 11:37 01/21/24 11:37 01/21/24 11:37
Physical Exam
Constitutional: No Acute Distress, Comfortable and Non-toxic
Eyes: Sclera Anicteric
Cardiovascular: Regular Rate and S1/S2; Negative Murmur or Rub
Pulmonary: Clear and Symmetric; Negative Wheezes or Rales
Gastrointestinal: Soft, Non Tender, Non Distended and Normal Bowel Sounds
Skin: Warm and Dry; Negative Rash or Jaundice
Neurological: Awake and Alert
Objective Data
Lab Data
Lab Results
01/21/24 06:35
01/21/24 06:35
Estimated Creat Clear 51 ml/min 01/21/24 06:35
Lactic Acid Cancelled 01/16/24 15:45
Total Bilirubin 0.8 mg/dl (0.2-1.3) 01/16/24 11:22
AST 22 U/L (17-59) 01/16/24 11:22
ALT 18 U/L (0-50) 01/16/24 11:22
Alkaline Phosphatase 349 U/L (38-126) H 01/16/24 11:22
Most recent labs reviewed.
Micro Results:
01/16/24 19:36 Salmonella/Shigella Culture - Final
Feces/Stool No Salmonella, Shigella, Aeromonas or Plesiomonas species
isolated.
Campylobacter Culture - Final
No Campylobacter species isolated.
Shiga Toxin Test - Final
No E. coli Shiga Toxin 1 or 2 detected.
Stool Leukocytes - Final
01/16/24 12:33 Urine Culture - Final
Urine NO GROWTH
01/16/24 19:36 C. difficile GDH Antigen & Toxins - Final
Feces/Stool Toxigenic C.difficile Positive
- Final
Negative for Norovirus GI and GII.
Imaging:
01/16/2024 CT abdomen/pelvis with IV contrast: Widespread predominantly sclerotic bony metastasis noted. Fry catheter is in place with in a empty urinary bladder with reactive wall thickening. Markedly limited examination of the intestinal tract
without oral contrast. Cannot exclude thickening of the wall of at least the proximal sigmoid colon. Please see full dictation for additional detail. Film personally viewed.
--- NOTE | 2024-01-21 15:53 | PTCARENOTE ---
patient refused to sit oob in chair after working with therapy today. He said, 'Why do I need to sit oob and wiggle my toes when I can do that in bed?'. enforced benefits/risks of increasing activity, but patient didn't seem interested in hearing.
tolerating diet, stool starting to bulk up, vss, will continue to monitor.
--- NOTE | 2024-01-21 16:57 | CM ---
Reviewed chart, per PT/OT patient needs SNF. Met with patient to discuss. Patient was very adamant about not going to SNF. He did not appear to understand his limitations and kept repeating that if he can't function at home, he will call his family
doctor. Patient was advised that doctors here and PT/OT indicating SNF. He provided permission to speak to his daughter. Will call her to discuss placement. Asked RN to discuss with attending if patient capable of making decisions as both RN and CM
noticed a lot of confusion.
Plan: Case management will continue to follow and assist with discharge planning. SNF.
[2024-01-21] MEDS: PROSCAR 5 MG PO (17:45)
[2024-01-21] MEDS: LIPITOR 10 MG PO (17:45)
[2024-01-21] MEDS: LOVENOX 40 MG SC (17:47)
[2024-01-21] MEDS: ARICEPT 10 MG PO (21:28)
[2024-01-22] MEDS: FIRVANQ 125 MG PO ×3 (05:32→17:24)
[2024-01-22 07:45] VITALS: BP 114/59
[2024-01-22 07:50] LABS: Hematocrit 23.5 % (39.0-52.0); Hemoglobin 7.6 g/dL (13.0-18.0); Mean Corp Hgb Conc. 32.3 g/dL (33.0-37.0); Mean Corpuscular Hgb 30.8 pg (27.0-31.0); Mean Corpuscular Volume 95.1 fL (80.0-94.0); Mean Platelet Volume 10.3 fL (7.4-10.4); Platelet Count 198 10^3/uL (130-400); Red Blood Cell Count 2.47 10^6/uL (4.70-6.10); Red Cell Dist. Width 18.9 % (11.5-14.5); White Blood Cell Count 5.7 10^3/uL (4.8-10.8)
[2024-01-22 08:40] LABS: Blood Urea Nitrogen 14 mg/dl (9-20); Calcium 6.7 mg/dl (8.4-10.2); Carbon Dioxide 19 mmol/L (22-30); Chloride 109 mmol/L (98-107); Estimated Creatinine Clearance 51 ml/min; Glucose 96 mg/dl (70-99); Magnesium 1.7 mg/dl (1.6-2.3); Potassium 4.8 mmol/L (3.5-5.1); Sodium 139 mmol/L (135-145); eGFR > 60.00
[2024-01-22] MEDS: VITAMIN D3 (cholecalciferol) 25 MCG PO (09:09)
[2024-01-22] MEDS: NEUTRA-PHOS POWDER PACKET 500 MG PO ×4 (09:09→20:56)
[2024-01-22] MEDS: LIDOCAINE 4% PATCH 1 PATCH TOPICAL (09:10)
[2024-01-22] MEDS: OSCAL 500 + D 1000 MG PO ×3 (09:10→20:57)
[2024-01-22] MEDS: SODIUM BICARBONATE 1300 MG PO ×3 (09:10→20:57)
[2024-01-22] MEDS: FLOMAX 0.4 MG PO ×2 (09:11→20:55)
--- NOTE | 2024-01-22 10:02 | W.PN.HOSP.TC ---
Today's Communication/Plan
-
se A/P
Assessment / Plan
Assessment / Plan
HPI: 83 yo male with past medical history for prostate cancer, hyperlipidemia, BPH, dementia, hypertension presented with lower abdominal pain associate with diarrhea for past few days. Patient stated nonbloody liquid stools.
Patient has Fry catheter in place. Patient was noted hypotension, positive urinalysis, CT with colitis, admitted for further management.
Patient underwent TURP on 01/06. After the procedure patient was not able to void. Fry catheter was placed. Patient was sent home on Augmentin and Pyridium. he was supposed to follow up with urology for Fry removal, but came here instead.
A/P:
# C. diff colitis
CT abdomen pelvis with impression of widespread predominantly sclerotic bony metastatic disease again seen. Fry catheter within virtually completely empty urinary bladder with at least relative wall thickening.
ID on board, cont oral vancomycin
Tolerating low residue
# UTI ruled out
Appreciate ID input, urine culture negative, Zosyn discontinued
# Anemia
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
s/p 2 units PRBC transfusion
Hb today at 7.6
Cont to monitor Hb
# Metastatic prostate cancer
On Lupron/Xgeva (Xtandi to be started later). Follows with [facility]/ Dr. Stevenson
01/07/24 s/p button vaporization TURP
Appreciate urology input, failed voiding trial 01/16, Fry reinserted
Maintain Fry upon discharge, follow-up with urology in the office after discharge for void trial
# Acute kidney injury, resolved
# NAGMA, improved
s/p IV fluids with sodium bicarb,
cont oral sodium bicarb
# Hypocalcemia
Vitamin D WNL at 39.9
Cont calcium supplements
Replete calcium with IV again today
# Hypomagnesemia
replete IV
# Hypophosphatemia
Continue to replete
# Hypotension likely hypovolemic, Resolved
Hold ramipril
BP stable off med
# Dementia
Aricept continued
# Hyperlipidemia
Statin continued
# BPH
finasteride, Flomax continued
DVT prophylaxis�subcu Lovenox
Full code
Dispo: PT recc SNF
DW RN
DW daughter on the phone
Anticipated Discharge: 24 - 48 hours
Subjective/Interval History
-
Date of Service: January 22, 2024
Objective Data
-
Labs:
Laboratory Results
01/22/24
06:33
WBC 5.7
Hgb 7.6 L
Hct 23.5 L
Plt Count 198
Sodium 139
Potassium 4.8
Chloride 109 H
Carbon Dioxide 19 L
BUN 14
Creatinine 1.0
Glucose 96
Calcium 6.7 L*
Vital Signs:
Vital Signs
Temp Pulse Resp BP Pulse Ox
36.6 C 73 18 114/59 98
01/22/24 07:45 01/22/24 07:45 01/22/24 07:45 01/22/24 07:45 01/22/24 07:45
I&O
01/21/24 01/22/24 01/23/24
06:59 06:59 06:59
Intake Total 1350 / 1350 2130 / 2130
Output Total 2250 / 2250 3550 / 3550
Balance -900 / -900 -1420 / -1420
Review of Systems
-
All other systems: Reviewed and negative
Physical Exam
-
General: Well Developed, Well Nourished, No Apparent Distress, Comfortable and Conversant; Negative Respiratory Distress
HEENT: Normocephalic, Atraumatic, Nose Appears Normal and Ears Appear Normal; Negative Oxygen
Respiratory: Clear to Auscultation and Non Labored Respirations; Negative Accessory Resp Muscle Use
Cardiac: Regular Rhythm and S1/S2
GI: Soft, Nontender, Nondistended and Normal Bowel Sounds
Skin: Warm and Dry
Neuro: Awake, Alert and Oriented
Psych: Calm and Intact Judgement/Insight
Data Reviewed
-
Labs: Labs Reviewed by me, Discussed with Nurse, Discussed with Patient and Discussed with Family
[2024-01-22] MEDS: MAGNESIUM SULFATE 50 IV (11:44)
[2024-01-22] MEDS: CALCIUM GLUCONATE 100 IV (14:12)
[2024-01-22 14:47] VITALS: BP 114/63; PULSE 76; O2SAT 98
[2024-01-22 15:25] VITALS: BP 131/60
[2024-01-22] MEDS: PROSCAR 5 MG PO (17:25)
[2024-01-22] MEDS: LIPITOR 10 MG PO (17:25)
[2024-01-22] MEDS: LOVENOX 40 MG SC (17:26)
[2024-01-22] MEDS: TYLENOL 650 MG PO (17:28)
[2024-01-22] MEDS: ARICEPT 10 MG PO (20:55)
[2024-01-22 22:52] VITALS: BP 138/66
[2024-01-23] MEDS: FIRVANQ 125 MG PO ×4 (00:24→17:00)
[2024-01-23 06:42] LABS: Hematocrit 23.2 % (39.0-52.0); Hemoglobin 7.6 g/dL (13.0-18.0); Mean Corp Hgb Conc. 32.8 g/dL (33.0-37.0); Mean Corpuscular Hgb 31.3 pg (27.0-31.0); Mean Corpuscular Volume 95.5 fL (80.0-94.0); Mean Platelet Volume 10.3 fL (7.4-10.4); Platelet Count 192 10^3/uL (130-400); Red Blood Cell Count 2.43 10^6/uL (4.70-6.10); Red Cell Dist. Width 18.7 % (11.5-14.5); White Blood Cell Count 5.7 10^3/uL (4.8-10.8)
[2024-01-23 07:23] LABS: Blood Urea Nitrogen 13 mg/dl (9-20); Calcium 6.7 mg/dl (8.4-10.2); Carbon Dioxide 19 mmol/L (22-30); Chloride 109 mmol/L (98-107); Estimated Creatinine Clearance 56 ml/min; Glucose 99 mg/dl (70-99); Magnesium 1.8 mg/dl (1.6-2.3); Sodium 139 mmol/L (135-145); eGFR > 60.00
[2024-01-23 07:51] VITALS: BP 106/57
[2024-01-23] MEDS: SODIUM BICARBONATE 1300 MG PO ×3 (08:07→21:18)
[2024-01-23] MEDS: FLOMAX 0.4 MG PO ×2 (08:07→21:18)
[2024-01-23] MEDS: NEUTRA-PHOS POWDER PACKET 500 MG PO ×4 (08:07→21:18)
[2024-01-23] MEDS: OSCAL 500 + D 1000 MG PO ×3 (08:07→21:18)
[2024-01-23] MEDS: LIDOCAINE 4% PATCH 1 PATCH TOPICAL (08:08)
[2024-01-23] MEDS: VITAMIN D3 (cholecalciferol) 25 MCG PO (08:08)
[2024-01-23] MEDS: CALCIUM GLUCONATE 130 MG IV (09:29)
--- NOTE | 2024-01-23 09:52 | W.PN.HOSP.TC ---
Today's Communication/Plan
-
see A/P
Assessment / Plan
Assessment / Plan
HPI: 83 yo male with past medical history for prostate cancer, hyperlipidemia, BPH, dementia, hypertension presented with lower abdominal pain associate with diarrhea for past few days. Patient stated nonbloody liquid stools.
Patient has Fry catheter in place. Patient was noted hypotension, positive urinalysis, CT with colitis, admitted for further management.
Patient underwent TURP on 01/06. After the procedure patient was not able to void. Fry catheter was placed. Patient was sent home on Augmentin and Pyridium. he was supposed to follow up with urology for Fry removal, but came here instead.
A/P:
# C. diff colitis
CT abdomen pelvis with impression of widespread predominantly sclerotic bony metastatic disease again seen. Fry catheter within virtually completely empty urinary bladder with at least relative wall thickening.
ID on board, cont oral vancomycin
Tolerating low residue
# UTI ruled out
Appreciate ID input, urine culture negative, Zosyn discontinued
# Anemia
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
s/p 2 units PRBC transfusion
Hb today at 7.6
Cont to monitor Hb
# Metastatic prostate cancer
On Lupron/Xgeva (Xtandi to be started later). Follows with [facility]/ Dr. Stevenson
01/07/24 s/p button vaporization TURP
Appreciate urology input, failed voiding trial 01/16, Fry reinserted
Maintain Fry upon discharge, follow-up with urology in the office after discharge for void trial
# Acute kidney injury, resolved
# NAGMA, improved
s/p IV fluids with sodium bicarb,
cont oral sodium bicarb
# Hypocalcemia
Vitamin D WNL at 39.9
Cont PO calcium supplements
Replete calcium with IV calcium gluconate today
# Hypomagnesemia
replete IV
# Hypophosphatemia
Continue to replete
# Hypotension likely hypovolemic, Resolved
Hold ramipril
BP stable off med
# Dementia
Aricept continued
# Hyperlipidemia
Statin continued
# BPH
finasteride, Flomax continued
DVT prophylaxis�subcu Lovenox
Full code
Dispo: PT recc SNF
DW RN
DW daughter on the phone
Anticipated Discharge: 24 - 48 hours
Subjective/Interval History
-
Date of Service: January 23, 2024
Objective Data
-
Labs:
Laboratory Results
01/23/24
06:24
WBC 5.7
Hgb 7.6 L
Hct 23.2 L
Plt Count 192
Sodium 139
Potassium 5.0
Chloride 109 H
Carbon Dioxide 19 L
BUN 13
Creatinine 0.9
Glucose 99
Calcium 6.7 L*
Vital Signs:
Vital Signs
Temp Pulse Resp BP Pulse Ox
36.6 C 79 16 106/57 99
01/23/24 07:51 01/23/24 07:51 01/23/24 07:51 01/23/24 07:51 01/23/24 07:51
I&O
01/22/24 01/23/24 01/24/24
06:59 06:59 06:59
Intake Total 2130 / 2130 720 / 720
Output Total 3550 / 3550 3100 / 3100
Balance -1420 / -1420 -2380 / -2380
Review of Systems
-
All other systems: Reviewed and negative
Physical Exam
-
General: Well Developed, Well Nourished, No Apparent Distress, Comfortable and Conversant; Negative Respiratory Distress
HEENT: Normocephalic, Atraumatic, Nose Appears Normal and Ears Appear Normal; Negative Oxygen
Respiratory: Clear to Auscultation and Non Labored Respirations; Negative Accessory Resp Muscle Use
Cardiac: Regular Rhythm and S1/S2
GI: Soft, Nontender, Nondistended and Normal Bowel Sounds
Skin: Warm and Dry
Neuro: Awake, Alert and Oriented
Psych: Calm and Intact Judgement/Insight
Data Reviewed
-
Labs: Labs Reviewed by me, Discussed with Nurse, Discussed with Patient and Discussed with Family
[2024-01-23] MEDS: MAGNESIUM SULFATE 100 IV (11:08)
--- NOTE | 2024-01-23 11:21 | W.PN.ID1 ---
Date of Service
Date of Service: January 23, 2024
Today's Communication
Continue antibiotics.
Assessment / Plan
C. difficile colitis
-Improved
Recent button TURP
Metastatic prostate cancer
JV; improved
Anemia
Dyslipidemia
HTN
Thyroid disease
Recommendations:
Urine culture negative. (Urinalysis difficult to interpret in the context of recent button TURP.)
Stool culture negative.
Continue with enteral vancomycin (d#8) to complete a 10-day course.
Monitor stool output and consistency. Per nursing, stool is improving and consistency.
Follow white count and temperature curve.
����������������������������������������������������������
Chief Complaint
-: C-diff
Subjective / Review of Systems
Patient seen and examined. Reports ongoing loose stool, but nursing reports 'mushy' and not liquid anymore.
Review of Systems: No Fever, No Chills and No Abdominal Pain
Vital Signs / Physical Exam
Vital Signs
Vital Signs
Temp Pulse Resp BP Pulse Ox
97.8 F 79 16 106/57 99
01/23/24 07:51 01/23/24 07:51 01/23/24 07:51 01/23/24 07:51 01/23/24 07:51
Physical Exam
Constitutional: No Acute Distress, Comfortable and Non-toxic
Eyes: Sclera Anicteric
Cardiovascular: Regular Rate and S1/S2; Negative Murmur or Rub
Pulmonary: Clear and Symmetric; Negative Wheezes or Rales
Gastrointestinal: Soft, Non Tender, Non Distended, Normal Bowel Sounds, No Rebound and No Guarding
Skin: Warm and Dry; Negative Rash or Jaundice
Neurological: Awake and Alert
Psychological: Calm
Objective Data
Lab Data
Lab Results
01/23/24 06:24
01/23/24 06:24
Estimated Creat Clear 56 ml/min 01/23/24 06:24
Lactic Acid Cancelled 01/16/24 15:45
Total Bilirubin 0.8 mg/dl (0.2-1.3) 01/16/24 11:22
AST 22 U/L (17-59) 01/16/24 11:22
ALT 18 U/L (0-50) 01/16/24 11:22
Alkaline Phosphatase 349 U/L (38-126) H 01/16/24 11:22
Most recent labs reviewed.
CT Scan: Image Reviewed and Report Reviewed
Micro Results:
01/16/24 19:36 Salmonella/Shigella Culture - Final
Feces/Stool No Salmonella, Shigella, Aeromonas or Plesiomonas species
isolated.
Campylobacter Culture - Final
No Campylobacter species isolated.
Shiga Toxin Test - Final
No E. coli Shiga Toxin 1 or 2 detected.
Stool Leukocytes - Final
01/16/24 12:33 Urine Culture - Final
Urine NO GROWTH
01/16/24 19:36 C. difficile GDH Antigen & Toxins - Final
Feces/Stool Toxigenic C.difficile Positive
- Final
Negative for Norovirus GI and GII.
Imaging:
01/16/2024 CT abdomen/pelvis with IV contrast: Widespread predominantly sclerotic bony metastasis noted. Fry catheter is in place with in a empty urinary bladder with reactive wall thickening. Markedly limited examination of the intestinal tract
without oral contrast. Cannot exclude thickening of the wall of at least the proximal sigmoid colon. Please see full dictation for additional detail. Film personally viewed.
[2024-01-23 11:51] VITALS: BP 111/54; PULSE 86; O2SAT 98
[2024-01-23 14:16] VITALS: BP 107/58; PULSE 81
--- NOTE | 2024-01-23 15:58 | CM ---
Reviewed chart, PT/OT still indicating SNF. Placed a call to patient's and son answered and put him and on speakerphone. Patient's son stated that patient and his have caregivers through [facility] and they have the ability to be
able to hire them for more hours as they only come daily for 4 hours. Patient's son stated that he lives nearby and patient's daughter will be coming in from out of state to stay with patient for a few weeks. Patient's requested VN through
[facility]. Will make referral.
Plan: Case management will continue to follow and assist with discharge planning. Tentative home with family, VN and private aides.
[2024-01-23 16:01] VITALS: BP 114/54
[2024-01-23] MEDS: PROSCAR 5 MG PO (17:00)
[2024-01-23] MEDS: LOVENOX 40 MG SC (17:00)
[2024-01-23] MEDS: LIPITOR 10 MG PO (17:00)
[2024-01-23] MEDS: ARICEPT 10 MG PO (21:18)
[2024-01-23] MEDS: TYLENOL 650 MG PO (21:26)
[2024-01-23 23:35] VITALS: BP 113/60
[2024-01-24] MEDS: FIRVANQ 125 MG PO ×3 (00:03→11:55)
[2024-01-24 07:22] LABS: Hematocrit 23.9 % (39.0-52.0); Hemoglobin 7.8 g/dL (13.0-18.0); Mean Corp Hgb Conc. 32.6 g/dL (33.0-37.0); Mean Corpuscular Hgb 31.1 pg (27.0-31.0); Mean Corpuscular Volume 95.2 fL (80.0-94.0); Mean Platelet Volume 10.3 fL (7.4-10.4); Platelet Count 211 10^3/uL (130-400); Red Blood Cell Count 2.51 10^6/uL (4.70-6.10); Red Cell Dist. Width 18.6 % (11.5-14.5); White Blood Cell Count 4.9 10^3/uL (4.8-10.8)
[2024-01-24 07:49] VITALS: BP 111/57
[2024-01-24 08:13] LABS: Blood Urea Nitrogen 13 mg/dl (9-20); Calcium 6.9 mg/dl (8.4-10.2); Carbon Dioxide 20 mmol/L (22-30); Chloride 110 mmol/L (98-107); Estimated Creatinine Clearance 63 ml/min; Glucose 97 mg/dl (70-99); Magnesium 1.9 mg/dl (1.6-2.3); Potassium 5.6 mmol/L (3.5-5.1); Sodium 139 mmol/L (135-145); eGFR > 60.00
--- NOTE | 2024-01-24 09:10 | W.PN.HOSP.TC ---
Addendum entered and electronically signed by Malia Tiwari MD 01/24/24 11:56:
total DC time 38 min
Original Note:
Today's Communication/Plan
-
see A/P
Assessment / Plan
Assessment / Plan
HPI: 83 yo male with past medical history for prostate cancer, hyperlipidemia, BPH, dementia, hypertension presented with lower abdominal pain associate with diarrhea for past few days. Patient stated nonbloody liquid stools.
Patient has Fry catheter in place. Patient was noted hypotension, positive urinalysis, CT with colitis, admitted for further management.
Patient underwent TURP on 01/06. After the procedure patient was not able to void. Fry catheter was placed. Patient was sent home on Augmentin and Pyridium. he was supposed to follow up with urology for Fry removal, but came here instead.
A/P:
# C. diff colitis
CT AP with impression of widespread predominantly sclerotic bony metastatic disease again seen. Fry catheter within virtually completely empty urinary bladder with at least relative wall thickening.
ID on board, cont oral vancomycin total 10 day course
Tolerating low residue
# UTI ruled out
Appreciate ID input, urine culture negative, Zosyn discontinued
# Anemia
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
s/p 2 units PRBC transfusion
Hb today at 7.8
Cont to monitor Hb with PCP outpt
# Metastatic prostate cancer
On Lupron/Xgeva (Xtandi to be started later). Follows with julius/ Dr. Stevenson
01/07/24 s/p button vaporization TURP
Appreciate urology input, failed voiding trial 01/16, Fry reinserted
Maintain Fry upon discharge, follow-up with urology in the office after discharge for void trial
# Acute kidney injury, resolved
# NAGMA, improved
s/p IV fluids with sodium bicarb,
cont oral sodium bicarb
# Hypocalcemia
Vitamin D WNL at 39.9
s/p IV calcium repletion
corrected calcium 7.7
Cont PO calcium supplements outpt
outpt BMP in 1 week, result to PCP
# Hypomagnesemia
repleted IV
# Mild Hyperkalemia
Potassium level 5.6 today, stop further sodium potassium phospate
# Hypotension likely hypovolemic, Resolved
Hold ramipril
BP stable off med
# Dementia
Aricept continued
# Hyperlipidemia
Statin continued
# BPH
finasteride, Flomax continued
DVT prophylaxis�subcu Lovenox
Full code
Dispo: PT recc [facility] , however pt prefers to return home with
DW RN
DW daughter on the phone
Anticipated Discharge: Today
Subjective/Interval History
-
Date of Service: January 24, 2024
Objective Data
-
Labs:
Laboratory Results
01/24/24
06:53
WBC 4.9
Hgb 7.8 L
Hct 23.9 L
Plt Count 211
Sodium 139
Potassium 5.6 H
Chloride 110 H
Carbon Dioxide 20 L
BUN 13
Creatinine 0.8
Glucose 97
Calcium 6.9 L*
Vital Signs:
Vital Signs
Temp Pulse Resp BP Pulse Ox
36.8 C 73 16 111/57 100
01/24/24 07:49 01/24/24 07:49 01/24/24 07:49 01/24/24 07:49 01/24/24 07:49
I&O
01/23/24 01/24/24 01/25/24
06:59 06:59 06:59
Intake Total 720 / 720 570 / 570
Output Total 3100 / 3100 2395 / 2395
Balance -2380 / -2380 -1825 / -1825
Review of Systems
-
All other systems: Reviewed and negative
Physical Exam
-
General: Well Developed, Well Nourished, No Apparent Distress, Comfortable and Conversant; Negative Respiratory Distress
HEENT: Normocephalic, Atraumatic, Nose Appears Normal and Ears Appear Normal; Negative Oxygen
Respiratory: Clear to Auscultation and Non Labored Respirations; Negative Accessory Resp Muscle Use
Cardiac: Regular Rhythm and S1/S2
GI: Soft, Nontender, Nondistended and Normal Bowel Sounds
Skin: Warm and Dry
Neuro: Awake, Alert and Oriented
Psych: Calm and Intact Judgement/Insight
Data Reviewed
-
Labs: Labs Reviewed by me, Discussed with Nurse, Discussed with Patient and Discussed with Family
[2024-01-24] MEDS: FLOMAX 0.4 MG PO (09:28)
[2024-01-24] MEDS: OSCAL 500 + D 1000 MG PO (09:28)
[2024-01-24] MEDS: LIDOCAINE 4% PATCH 1 PATCH TOPICAL (09:28)
[2024-01-24] MEDS: VITAMIN D3 (cholecalciferol) 25 MCG PO (09:30)
[2024-01-24] MEDS: SODIUM BICARBONATE PO (10:26)
[2024-01-24] MEDS: FLUAD (65 yr+) 2024-2025 FORMULA 0.5 ML IM (10:26)
[2024-01-24] MEDS: NEUTRA-PHOS POWDER PACKET PO (10:26)
--- NOTE | 2024-01-24 10:33 | W.DCSUMMARY ---
Discharge Summary
Discharge Data
Date of Admission: 01/16/24
Date of Discharge: 01/24/24
-
Pending Results: No
Hospital Course
Principal Diagnosis:
Acute first episode C. difficile colitis, associated with electrolyte disturbance (hypokalemia, hypomagnesemia) and hypotension
Chronic Diagnoses:�
Metastatic prostate cancer on Lupron/Xgeva. Follows with [facility]/ Dr. Stevenson
Status post button vaporization TURP
Chronic anemia likely from malignant marrow involvement
Dementia, on Aricept
Hyperlipidemia, on statin
Benign prostate hypertrophy, on finasteride and Flomax
Consultations:�
Infectious disease
Urology
Procedures:�
None
Clinical course:�
This is a 83 year old male with past medical history as stated above, who presented with liquid diarrhea and lower abdominal pain.
Problem 1:
Acute first episode C. difficile colitis, associated with electrolyte disturbance (hypokalemia, hypomagnesemia) and hypotension.
He was started with oral vancomycin, and was discharged with 2 more days to complete 10 days course.
His blood pressure improved with resolution of the infection. His prior to admission ramipril was discontinued.
The patient received IV calcium for his hypocalcemia.
On the day of discharge, his corrected calcium level was at 7.7. He can continue with calcium supplement outpatient.
The patient also received IV magnesium for repletion.
He can check outpatient BMP with result to his PCP in 1 week.
Problem 2:
Anemia likely from malignant marrow involvement.
He received 2 units PRBC transfusion during this admission.
His hemoglobin on the day of discharge was at 7.8.
He can monitor his hemoglobin with his PCP outpatient.
Problem 3:
Acute kidney injury, resolved.
This was associated with nonanion gap metabolic acidosis, which improved following IV fluid with sodium bicarb.
As for the rest of his medical problems, they were stable during his hospital stay.
Discharge Plan
-
Patient Disposition: Home with Home Care
Discharge Diagnosis/Procedures: C. difficile colitis with electrolyte disturbance (hypomagnesemia, hypocalcemia);
Metastatic prostate cancer with chronic anemia
Condition: Fair
Diet: As tolerated
Activity: As tolerated
Driving Restrictions: As prior to admission
Blood Work: CBC, BMP, Magnesium level with your PCP in 1 week
Activity Restrictions/Additional Instructions:
Maintain Fry and follow-up with urology in the office after discharge for void trial
Referrals:
Ayleen Botello MD [Family Provider] - in less than 1 week
Additional Discharge Medication Instructions: continue oral vancomycin for 2 more days
Stop Ramipril (your blood pressure has been stable off med)
Prescriptions:
New
vancomycin 125 mg capsule
125 mg PO QID 2 Days Qty: 8 0RF
Continued
cyanocobalamin (vitamin B-12) 1,000 mcg Tablet
1,000 mcg PO DAILY
ascorbic acid (vitamin C) [Vitamin C] 500 mg Tablet
500 mg PO DAILY
tamsulosin [Flomax] 0.4 mg Capsule
0.4 mg PO BID
finasteride 5 mg Tablet
5 mg PO QPM
cholecalciferol (vitamin D3) [Vitamin D3] 25 mcg (1,000 unit) Tablet
25 mcg PO DAILY
Xtandi 40 mg Tablet
160 mg PO DAILY Qty: 0
Patient Comments:
01/16/2024: '[facility] in [place] has his prescription ready' 'pt was supposed to picker / packer today, but came here instead'
atorvastatin 10 mg Tablet
10 mg PO QPM
donepezil 10 mg Tablet
10 mg PO HS
calcium carbonate [Calcium 600] 600 mg calcium (1,500 mg) Tablet
600 mg PO TID
coenzyme Q10 [CoQ-10] 100 mg Capsule
100 mg PO QPM
Visbiome 112.5 billion cell Capsule
1 cap PO DAILY Qty: 0
Xgeva 120 mg/1.7 mL (70 mg/mL) Solution
120 mg SC Q4W
Lupron Depot (6 Month) 45 mg Syringe Kit
45 mg IM [id number] Qty: 0
AZO D-Mannose 500 mg Capsule
500 mg PO QPM
Discontinued
ramipril 2.5 mg capsule
2.5 mg PO DAILY
Discharge Orders:
Discharge Patient (As Directed); Ordered 01/24/24
Ordered By: Malia Tiwari
Discharge Date and Time
Print Language: BULGARIAN
--- NOTE | 2024-01-24 13:36 | W.PN.ID1 ---
Date of Service
Date of Service: January 24, 2024
Today's Communication
Continue course of vancomycin.
Assessment / Plan
C. difficile colitis
-Improved
Recent button TURP
Metastatic prostate cancer
JV; improved
Anemia
Dyslipidemia
HTN
Thyroid disease
Recommendations:
Urine culture negative. (Urinalysis difficult to interpret in the context of recent button TURP.)
Stool culture negative.
Continue with enteral vancomycin (d#9) to complete a 10-day course.
Would attempt to avoid antibiotics, but if use is unavoidable in the next several months, patient may benefit from a prophylactic course of vancomycin 125 mg p.o. twice daily while antibiotics are given.
����������������������������������������������������������
Chief Complaint
-: C-diff
Subjective / Review of Systems
Review of Systems: No Fever, No Chills, No Abdominal Pain and No Diarrhea (characterized as 'mushy' per Nsg.)
Vital Signs / Physical Exam
Vital Signs
Vital Signs
Temp Pulse Resp BP Pulse Ox
98.3 F 73 16 111/57 100
01/24/24 07:49 01/24/24 07:49 01/24/24 07:49 01/24/24 07:49 01/24/24 07:49
Physical Exam
Constitutional: No Acute Distress, Comfortable and Non-toxic
Eyes: Sclera Anicteric
Cardiovascular: Regular Rate and S1/S2; Negative Murmur or Rub
Pulmonary: Clear and Symmetric; Negative Wheezes or Rales
Gastrointestinal: Soft, Non Tender, Non Distended, Normal Bowel Sounds, No Rebound and No Guarding
Skin: Warm and Dry; Negative Rash or Jaundice
Neurological: Awake and Alert
Psychological: Calm
Objective Data
Lab Data
Lab Results
01/24/24 06:53
01/24/24 06:53
Estimated Creat Clear 63 ml/min 01/24/24 06:53
Lactic Acid Cancelled 01/16/24 15:45
Total Bilirubin 0.8 mg/dl (0.2-1.3) 01/16/24 11:22
AST 22 U/L (17-59) 01/16/24 11:22
ALT 18 U/L (0-50) 01/16/24 11:22
Alkaline Phosphatase 349 U/L (38-126) H 01/16/24 11:22
Most recent labs reviewed.
Micro Results:
01/16/24 19:36 Salmonella/Shigella Culture - Final
Feces/Stool No Salmonella, Shigella, Aeromonas or Plesiomonas species
isolated.
Campylobacter Culture - Final
No Campylobacter species isolated.
Shiga Toxin Test - Final
No E. coli Shiga Toxin 1 or 2 detected.
Stool Leukocytes - Final
01/16/24 12:33 Urine Culture - Final
Urine NO GROWTH
01/16/24 19:36 C. difficile GDH Antigen & Toxins - Final
Feces/Stool Toxigenic C.difficile Positive
- Final
Negative for Norovirus GI and GII.
Imaging:
01/16/2024 CT abdomen/pelvis with IV contrast: Widespread predominantly sclerotic bony metastasis noted. Fry catheter is in place with in a empty urinary bladder with reactive wall thickening. Markedly limited examination of the intestinal tract
without oral contrast. Cannot exclude thickening of the wall of at least the proximal sigmoid colon. Please see full dictation for additional detail. Film personally viewed.
--- NOTE | 2024-01-24 14:26 | CM ---
Received notification that patient is medically cleared for discharge. Met with patient who signed IMM and is agreeable to d/c today. He stated that his son will transport him back home.
Plan: Case management will continue to follow and assist with discharge planning. Home with [facility]
[2024-01-24 15:02] VITALS: BP 110/62
== END 2024-01-24 15:10 | disposition home health service (06) | DRG 372 ==
LOC: 3 WEST ACU 15:06
PROVIDERS: Emergency Medicine; Family Medicine; Internal Medicine; Nurse Practitioner Family; Registered Nurse; ADMITTING PHYSICIAN Hospitalist; ATTENDING PHYSICIAN Internal Medicine; CONSULT PHYSICIAN Internal Medicine Infectious Disease; EMERGENCY PHYSICIAN Emergency Medicine; FAMILY PHYSICIAN Family Medicine
PROC: 30233N1 Transfusion of Nonautologous Red Blood Cells into Peripheral Vein, Percutaneous Approach (ICD-10-PCS; 2024-01-17)
DX: A04.72 Enterocolitis due to Clostridium difficile, not specified as recurrent (principal); C79.51 Secondary malignant neoplasm of bone; N17.9 Acute kidney failure, unspecified; E87.20 Acidosis, unspecified; D63.8 Anemia in other chronic diseases classified elsewhere; F03.90 Unspecified dementia, unspecified severity, without behavioral disturbance, psychotic disturbance, mood disturbance, and anxiety; I10 Essential (primary) hypertension; K76.9 Liver disease, unspecified; E83.51 Hypocalcemia; N30.90 Cystitis, unspecified without hematuria; C61 Malignant neoplasm of prostate; I95.9 Hypotension, unspecified; E78.00 Pure hypercholesterolemia, unspecified; E83.42 Hypomagnesemia; E87.6 Hypokalemia; N28.1 Cyst of kidney, acquired; N40.0 Benign prostatic hyperplasia without lower urinary tract symptoms; Z79.818 Long term (current) use of other agents affecting estrogen receptors and estrogen levels; Z79.899 Other long term (current) drug therapy; Z85.828 Personal history of other malignant neoplasm of skin; Z86.010 Personal history of colon polyps; Z88.2 Allergy status to sulfonamides
CPT/HCPCS: 73560; 74177; 80048; 80053; 81003; 81015; 82040; 82306; 82330; 83605; 83690; 83735; 84100; 85014; 85018; 85025; 85027; 86850; 86900; 86901; 86920; 87045; 87046; 87086; 87324; 87427; 87449; 87798; 89055; 90662; 96361; 96365; 97116; 97162; 97166; 97530; 97535; 99285; G0008; J7030; P9016; Q9967

== ENCOUNTER → 2024-01-28 08:42 | Outpatient (REF) | payer MEDICARE, SELFPAY ==
[2024-01-28 10:05] LABS: % Basophils 0.4 % (0-2); % Eosinophils 0.8 % (0-6); % Immature Granulocytes 1.1 % (0-0.5); % Lymphocytes 13.9 % (20.5-51.1); % Monocytes 8.4 % (1.7-9.3); % Neutrophils 75.4 % (42.2-75.2); Absolute Immature Granulocytes 0.1 10^3/uL (0-0.05); Absolute Lymphocytes 0.7 10^3/uL (1.2-3.4); Absolute Monocytes 0.5 10^3/uL (0.1-0.6); Hematocrit 29.7 % (39.0-52.0); Hemoglobin 9.3 g/dL (13.0-18.0); Mean Corp Hgb Conc. 31.3 g/dL (33.0-37.0); Mean Corpuscular Hgb 31.2 pg (27.0-31.0); Mean Corpuscular Volume 99.7 fL (80.0-94.0); Mean Platelet Volume 10.2 fL (7.4-10.4); Nucleated Red Blood Cells % 0 % (-); Platelet Count 275 10^3/uL (130-400); Red Blood Cell Count 2.98 10^6/uL (4.70-6.10); White Blood Cell Count 5.3 10^3/uL (4.8-10.8)
[2024-01-28 10:48] LABS: Blood Urea Nitrogen 22 mg/dl (9-20); Calcium 8.1 mg/dl (8.4-10.2); Carbon Dioxide 16 mmol/L (22-30); Chloride 109 mmol/L (98-107); Glucose 97 mg/dl (70-99); Magnesium 2.3 mg/dl (1.6-2.3); Potassium 4.7 mmol/L (3.5-5.1); Sodium 142 mmol/L (135-145); eGFR > 60.00
== END ==
LOC: REG 08:42
PROVIDERS: ATTENDING PHYSICIAN Internal Medicine; FAMILY PHYSICIAN Family Medicine; OTHER PHYSICIAN Family Medicine; REFERRING PHYSICIAN Surgery
DX: A04.72 Enterocolitis due to Clostridium difficile, not specified as recurrent (principal)
CPT/HCPCS: 36415; 80048; 83735; 85025

== ENCOUNTER → 2024-01-29 10:47 | Outpatient (REF) | payer MEDICARE, SELFPAY ==
[2024-01-29 18:57] LABS: % Basophils 0.2 % (0-2); % Immature Granulocytes 0.6 % (0-0.5); % Lymphocytes 12.6 % (20.5-51.1); % Monocytes 8.4 % (1.7-9.3); % Neutrophils 77.2 % (42.2-75.2); Absolute Eosinophils 0.1 10^3/uL (0-0.7); Absolute Lymphocytes 0.6 10^3/uL (1.2-3.4); Absolute Monocytes 0.4 10^3/uL (0.1-0.6); Absolute Neutrophils 3.8 10^3/uL (1.4-6.5); Hematocrit 29.5 % (39.0-52.0); Hemoglobin 9.1 g/dL (13.0-18.0); Mean Corp Hgb Conc. 30.8 g/dL (33.0-37.0); Mean Corpuscular Hgb 31.5 pg (27.0-31.0); Mean Corpuscular Volume 102.1 fL (80.0-94.0); Mean Platelet Volume 9.7 fL (7.4-10.4); Nucleated Red Blood Cells % 0 % (-); Platelet Count 321 10^3/uL (130-400); Red Blood Cell Count 2.89 10^6/uL (4.70-6.10); Red Cell Dist. Width 19.6 % (11.5-14.5); White Blood Cell Count 4.9 10^3/uL (4.8-10.8)
[2024-01-29 19:15] LABS: ALT (SGPT) 41 U/L (0-50); AST (SGOT) 31 U/L (17-59); Albumin 3.9 g/dl (3.5-5.0); Alkaline Phosphatase 435 U/L (38-126); Blood Urea Nitrogen 21 mg/dl (9-20); Calcium 8.6 mg/dl (8.4-10.2); Carbon Dioxide 17 mmol/L (22-30); Chloride 108 mmol/L (98-107); Glucose 97 mg/dl (70-99); Iron 79 ug/dl (49-181); Magnesium 2.2 mg/dl (1.6-2.3); Potassium 4.7 mmol/L (3.5-5.1); Sodium 139 mmol/L (135-145); Total Bilirubin 0.3 mg/dl (0.2-1.3); Total Protein 6.7 g/dl (6.3-8.2); eGFR > 60.00
[2024-01-29 19:24] LABS: Percent Saturation 43 % (20-50); Total Iron Binding Capacity 183 ug/dl (261-462)
== END ==
LOC: CLAB 10:47
PROVIDERS: ATTENDING PHYSICIAN Family Medicine
DX: E83.42 Hypomagnesemia (principal); E83.51 Hypocalcemia; D63.8 Anemia in other chronic diseases classified elsewhere
CPT/HCPCS: 36415; 80053; 82728; 83540; 83550; 83735; 85025

== ENCOUNTER → 2024-02-04 08:53 | Outpatient (REF) | payer MEDICARE, SELFPAY ==
[2024-02-04 10:53] LABS: % Basophils 0.6 % (0-2); % Immature Granulocytes 3.3 % (0-0.5); % Lymphocytes 24.4 % (20.5-51.1); % Monocytes 13.6 % (1.7-9.3); % Neutrophils 55.1 % (42.2-75.2); Absolute Eosinophils 0.1 10^3/uL (0-0.7); Absolute Immature Granulocytes 0.1 10^3/uL (0-0.05); Absolute Lymphocytes 0.8 10^3/uL (1.2-3.4); Absolute Monocytes 0.5 10^3/uL (0.1-0.6); Absolute Neutrophils 1.8 10^3/uL (1.4-6.5); Hematocrit 28.4 % (39.0-52.0); Hemoglobin 9.1 g/dL (13.0-18.0); Mean Corpuscular Hgb 31.6 pg (27.0-31.0); Mean Corpuscular Volume 98.6 fL (80.0-94.0); Mean Platelet Volume 9.8 fL (7.4-10.4); Nucleated Red Blood Cells % 0 % (-); Platelet Count 390 10^3/uL (130-400); Red Blood Cell Count 2.88 10^6/uL (4.70-6.10); Red Cell Dist. Width 18.9 % (11.5-14.5); White Blood Cell Count 3.3 10^3/uL (4.8-10.8)
[2024-02-04 11:09] LABS: ALT (SGPT) 20 U/L (0-50); AST (SGOT) 21 U/L (17-59); Alkaline Phosphatase 500 U/L (38-126); Calcium 9.5 mg/dl (8.4-10.2); Carbon Dioxide 21 mmol/L (22-30); Chloride 107 mmol/L (98-107); Glucose 98 mg/dl (70-99); Iron 133 ug/dl (49-181); Magnesium 1.9 mg/dl (1.6-2.3); Potassium 4.8 mmol/L (3.5-5.1); Sodium 141 mmol/L (135-145); Total Bilirubin 0.4 mg/dl (0.2-1.3)
[2024-02-04 11:19] LABS: Percent Saturation 70 % (20-50); Total Iron Binding Capacity 189 ug/dl (261-462)
[2024-02-04 11:25] LABS: Albumin 3.9 g/dl (3.5-5.0); Blood Urea Nitrogen 27 mg/dl (9-20); Total Protein 6.6 g/dl (6.3-8.2); eGFR > 60.00
== END ==
LOC: REG 08:53
PROVIDERS: ATTENDING PHYSICIAN Internal Medicine Hematology & Oncology; FAMILY PHYSICIAN Family Medicine; OTHER PHYSICIAN Surgery
DX: C61 Malignant neoplasm of prostate (principal); C79.51 Secondary malignant neoplasm of bone; N32.0 Bladder-neck obstruction; G89.3 Neoplasm related pain (acute) (chronic); D64.9 Anemia, unspecified; N18.30 Chronic kidney disease, stage 3 unspecified; D63.1 Anemia in chronic kidney disease
CPT/HCPCS: 36415; 80053; 82728; 83540; 83550; 83735; 84153; 85025

== ENCOUNTER 2024-02-08 19:55 | Inpatient (IN) | payer MEDICARE, SELFPAY ==
[2024-02-08] VITALS (12 sets, daily range): BP systolic 103–123; BP diastolic 56–68; BMI 25.3; BMI 22.4
[2024-02-08 13:07] LABS: % Basophils 0.1 % (0-2); % Eosinophils 0.1 % (0-6); % Immature Granulocytes 0.8 % (0-0.5); % Monocytes 6.9 % (1.7-9.3); % Neutrophils 88.1 % (42.2-75.2); Absolute Immature Granulocytes 0.1 10^3/uL (0-0.05); Absolute Lymphocytes 0.3 10^3/uL (1.2-3.4); Absolute Monocytes 0.5 10^3/uL (0.1-0.6); Absolute Neutrophils 6.6 10^3/uL (1.4-6.5); Hematocrit 24.9 % (39.0-52.0); Hemoglobin 8.3 g/dL (13.0-18.0); Mean Corp Hgb Conc. 33.3 g/dL (33.0-37.0); Mean Corpuscular Hgb 31.3 pg (27.0-31.0); Mean Platelet Volume 9.5 fL (7.4-10.4); Nucleated Red Blood Cells % 0 % (-); Platelet Count 275 10^3/uL (130-400); Red Blood Cell Count 2.65 10^6/uL (4.70-6.10); Red Cell Dist. Width 18.3 % (11.5-14.5); White Blood Cell Count 7.5 10^3/uL (4.8-10.8)
[2024-02-08 13:43] LABS: ALT (SGPT) 18 U/L (0-50); AST (SGOT) 38 U/L (17-59); Albumin 3.9 g/dl (3.5-5.0); Alkaline Phosphatase 586 U/L (38-126); Blood Urea Nitrogen 21 mg/dl (9-20); Calcium 9.7 mg/dl (8.4-10.2); Carbon Dioxide 20 mmol/L (22-30); Chloride 95 mmol/L (98-107); Glucose 143 mg/dl (70-99); Potassium 4.9 mmol/L (3.5-5.1); Sodium 126 mmol/L (135-145); Total Bilirubin 0.6 mg/dl (0.2-1.3); Total Protein 6.4 g/dl (6.3-8.2); eGFR > 60.00
[2024-02-08 14:04] LABS: Lipase 2326 U/L (23-300)
--- NOTE | 2024-02-08 16:05 | ED.GENMED ---
History of Present Illness
<Sheron Butcher MD, Resident - Last Filed: 02/11/24 08:15>
General
Chief Complaint: Weakness
Source: patient
Exam Limitations: none
Time Seen by Provider: 02/08/24 15:03
History of Present Illness
History of Present Illness:
Patient is a 83-year-old male with past medical history of metastatic prostate cancer presenting with 3 episodes of fall earlier today. He does not know what exactly led to the falls but has been feeling weak and dizzy for some time. Patient uses
walker at home and lives with his . He fell with his face to the ground while using the walker but does not think he damaged his face or any body parts. He denies any pain after the fall. Denies loss of consciousness and can remember the
events.
He has been having multiple episodes of vomiting from yesterday which he mentions is followed by loose stool. He does not think the vomit was bloody. Denies abdominal pain. Denies fever. He drinks a glass of wine every night.Is currently feeling
nauseous but has not vomited since since arriving in ED.
Past History
<Sheron Butcher MD, Resident - Last Filed: 02/11/24 08:15>
Past History
ED Past Medical History: Cancer (Prostate cancer with bony metastasis), HTN and Hypercholesterolemia
Social History
Tobacco: Non-smoker
Alcohol: Occasional
Drug: None
Personal:
Living: with family
Review of Systems
<Sheron Butcher MD, Resident - Last Filed: 02/11/24 08:15>
Review of Systems
Allergies reviewed?: Yes
Unable to obtain full review of systems at this time due to: other (Patient is a poor historian and sometimes forgets what he was saying.)
All Other Systems: ROS reviewed and negative except as documented in HPI and ROS
Phy Exam
<Sheron Butcher MD, Resident - Last Filed: 02/11/24 08:15>
General Physical Exam
General Presentation: moderate distress
General Skin: warm, dry and pale
General Mental: alert
General Hydration: dry mucous membranes
General Chronic Disability: urinary catheter
Cardiovascular Exam
Cardiovascular Exam: regular rate/rhythm, no JVD and no murmur
Pulmonary Exam
Pulmonary Exam: lungs clear, no respiratory distress, chest non tender, no crackles and no wheezing
Gastrointestinal Exam
Gastrointestinal Exam: normal bowel sounds, non tender, soft, non distended and other (No rebound, no guarding)
Neurological Exam
Neurological Exam: alert, oriented x3 and speech normal
Musculoskeletal Exam
Musculoskeletal Exam: edema (Bilateral 1+ lower extremity edema up to mid calf)
Skin Exam
Skin Exam: pallor and other (No jaundice, Minor abrasion on forehead (patient does not remember if this is new after the falls or from before))
Course
<Sheron Butcher MD, Resident - Last Filed: 02/11/24 08:15>
Orders/Labs/Results
Orders:
Orders
02/08/24 12:53
Complete Blood Count/With Diff Urgent
Comprehensive Metabolic Panel Urgent
Lipase Urgent
Magnesium Urgent
Comment: ADD ON
Serum Osmolality Urgent
Comment: ADD ON
TSH Urgent
Comment: ADD ON
02/08/24 15:58
Add On- LAB Urgent
Tests Added?: magnesium, serum osm
02/08/24 16:14
Pantoprazole [Protonix IV] 40 mg IV NOW STA
02/08/24 17:00
Lactated Ringers [Lr] 1,000 ml IV 125 mls/hr
02/08/24 18:23
Urinalysis Reflex To Culture Urgent
Date Specimen was Collected: 02/08/24
Time Specimen was Collected: 16:17
Urine Microscopic Reflex Cult Urgent
Urine Sodium Urgent
Date Specimen was Collected: 02/08/24
Time Specimen was Collected: 16:17
Urine Culture Urgent
PARVIZ Source: U
Specimen Description:
Date Specimen was Collected: 02/08/24
Time Specimen was Collected: 16:17
02/08/24 18:30
Admit/Transfer Patient As Directed
Co-Sign Provider:
Level of Care: Inpatient admission
Assign to:: Medical/Surgical
Physician / Group: Wyatt Allen
Diagnosis: Acute pancreatitis, hyponatremia, metastatic prostate cancer
Reason for Hospitalization: Acute pancreatitis, hyponatremia, metastatic prostate cancer
Expected length of stay greater than two midnights?: Yes
ELOS- Estimated Length of Stay in days: 2
I certify the patient meets the requirements for IP care: Yes
PRN Pain Medication Management As Directed
May give lesser potent ordered pain med per pt: Yes
preference::
Protocol:: Medication orders for pain may be administered in a
manner that supports deferring to patient preference
when the pt is:
- Requesting an ordered lesser potent pain medication.
Least to most potent pain medications are defined
as: acetaminophen < NSAID < tramadol < opioids
(morphine, oxycodone, hydromorphone).
- Requesting a lesser dose of the same medication IF
ORDERED.
- Requesting a less intrusive route of administration
if both routes are prescribed by the provider (PO <
IV).
02/08/24 18:32
Code Status As Directed
Resuscitation Status: Full Code
02/08/24 20:20
Bisacodyl [Dulcolax] 10 mg RECTAL [id number] PRN
Docusate W/Senna [Senokot-S] 1 tablet PO BIDPRN PRN
Enoxaparin Sodium [Lovenox] 40 mg SC QPM
HYDROmorphone [Dilaudid] 0.5 mg IV Q4HPRN PRN
Ondansetron Injectable [Zofran] 4 mg IV Q6HPRN PRN
Oxycodone [Roxicodone] 5 mg PO Q4HPRN PRN
Polyethylene Glycol Powder [Miralax] 17 grams PO DAILYPRN PRN
Tamsulosin [Flomax] 0.4 mg PO BID
02/08/24 20:20
EKG [Electrocardiogram (*1)] Routine
Reason for Study: Abnormal EKG
Urine Osmolality Random [Osmolality, Random Urine] Routine
Date Specimen was Collected: 02/09/24
Time Specimen was Collected: 00:55
Activity As Directed
Activity Level: With Assistance
Fry Catheter [Catheter- Indwelling] As Directed
Reason for insertion: Chronic Fry on Admit
Orthostatic Vital Signs As Directed
Orthostatic VS Frequency: BID
Vital Signs As Directed
Frequency: Per unit guidelines
Ot Eval And Treat Routine
Pt Eval And Treat Routine
Activity Level: With Assistance
DX Deep Vein Thrombosis Video Routine
02/08/24 22:00
Donepezil HCl [Aricept] 10 mg PO HS
02/09/24 05:53
Cardiovascular Evaluation IN AM
Complete Blood Count/No Diff IN AM
Comprehensive Metabolic Panel IN AM
Lipase IN AM
02/09/24 08:00
Lactobac/Bifidobac [Visbiome] 1 cap PO DAILY
enzalutamide [Xtandi] See Dose Instructions PO DAILY
02/09/24 18:00
Atorvastatin [Lipitor] 10 mg PO QPM
Finasteride [Proscar] 5 mg PO QPM
Abnormal Lab Results
02/08/24 02/08/24
12:53 18:23
RBC 2.65 L 10^6/uL
(4.70-6.10)
Hgb 8.3 L g/dL
(13.0-18.0)
Hct 24.9 L %
(39.0-52.0)
MCH 31.3 H pg
(27.0-31.0)
RDW 18.3 H %
(11.5-14.5)
Abs Immat Gran (auto) 0.1 H 10^3/uL
(0-0.05)
Absolute Neuts (auto) 6.6 H 10^3/uL
(1.4-6.5)
Absolute Lymphs (auto) 0.3 L 10^3/uL
(1.2-3.4)
Immature Gran % 0.8 H %
(0-0.5)
Neutrophils % 88.1 H %
(42.2-75.2)
Lymphocytes % 4.0 L %
(20.5-51.1)
Sodium 126 L mmol/L
(135-145)
Chloride 95 L mmol/L
(98-107)
Carbon Dioxide 20 L mmol/L
(22-30)
BUN 21 H mg/dl
(9-20)
Glucose 143 H mg/dl
(70-99)
Serum Osmolality 262 L mOsm/kg
(275-300)
Alkaline Phosphatase 586 H U/L
(38-126)
Lipase 2326 H* U/L
(23-300)
Ur Occult Blood Reflex 3+ A
(Negative)
Urine Nitrite (Reflex) Positive A
(Negative)
Leukocyte Esterase Rfl 2+ A
(Negative)
Urine RBC 7-10 A /HPF
(0-2)
Urine WBC (Reflex) 30-40 A /HPF
(0-5)
Urine Bacteria (Reflex) Many A
(Negative)
02/08/24 12:53
02/08/24 12:53
Vital Signs
Initial and Last Documented VS:
Initial Vital Signs
Temp Pulse Resp BP Pulse Ox
98.1 F 60 18 117/63 100
02/08/24 12:37 02/08/24 12:37 02/08/24 12:37 02/08/24 12:37 02/08/24 12:37
Last Documented Vital Signs
Temp Pulse Resp BP Pulse Ox
99.0 F 85 18 109/59 99
02/10/24 15:53 02/10/24 15:53 02/10/24 15:53 02/10/24 15:53 02/10/24 15:53
<Aman Gamez MD - Last Filed: 02/08/24 16:44>
Orders/Labs/Results
Orders:
Orders
02/08/24 12:53
Complete Blood Count/With Diff Urgent
Comprehensive Metabolic Panel Urgent
Lipase Urgent
Magnesium Urgent
Comment: ADD ON
Serum Osmolality Urgent
Comment: ADD ON
TSH Urgent
Comment: ADD ON
02/08/24 15:58
Add On- LAB Urgent
Tests Added?: magnesium, serum osm
02/08/24 16:14
Pantoprazole [Protonix IV] 40 mg IV NOW STA
02/08/24 17:00
Lactated Ringers [Lr] 1,000 ml IV 125 mls/hr
02/08/24 18:23
Urinalysis Reflex To Culture Urgent
Date Specimen was Collected: 02/08/24
Time Specimen was Collected: 16:17
Urine Microscopic Reflex Cult Urgent
Urine Sodium Urgent
Date Specimen was Collected: 02/08/24
Time Specimen was Collected: 16:17
Urine Culture Urgent
PARVIZ Source: U
Specimen Description:
Date Specimen was Collected: 02/08/24
Time Specimen was Collected: 16:17
02/08/24 18:30
Admit/Transfer Patient As Directed
Co-Sign Provider:
Level of Care: Inpatient admission
Assign to:: Medical/Surgical
Physician / Group: Wyatt Allen
Diagnosis: Acute pancreatitis, hyponatremia, metastatic prostate cancer
Reason for Hospitalization: Acute pancreatitis, hyponatremia, metastatic prostate cancer
Expected length of stay greater than two midnights?: Yes
ELOS- Estimated Length of Stay in days: 2
I certify the patient meets the requirements for IP care: Yes
PRN Pain Medication Management As Directed
May give lesser potent ordered pain med per pt: Yes
preference::
Protocol:: Medication orders for pain may be administered in a
manner that supports deferring to patient preference
when the pt is:
- Requesting an ordered lesser potent pain medication.
Least to most potent pain medications are defined
as: acetaminophen < NSAID < tramadol < opioids
(morphine, oxycodone, hydromorphone).
- Requesting a lesser dose of the same medication IF
ORDERED.
- Requesting a less intrusive route of administration
if both routes are prescribed by the provider (PO <
IV).
02/08/24 18:32
Code Status As Directed
Resuscitation Status: Full Code
02/08/24 20:20
Bisacodyl [Dulcolax] 10 mg RECTAL [id number] PRN
Docusate W/Senna [Senokot-S] 1 tablet PO BIDPRN PRN
Enoxaparin Sodium [Lovenox] 40 mg SC QPM
HYDROmorphone [Dilaudid] 0.5 mg IV Q4HPRN PRN
Ondansetron Injectable [Zofran] 4 mg IV Q6HPRN PRN
Oxycodone [Roxicodone] 5 mg PO Q4HPRN PRN
Polyethylene Glycol Powder [Miralax] 17 grams PO DAILYPRN PRN
Tamsulosin [Flomax] 0.4 mg PO BID
02/08/24 20:20
EKG [Electrocardiogram (*1)] Routine
Reason for Study: Abnormal EKG
Urine Osmolality Random [Osmolality, Random Urine] Routine
Date Specimen was Collected: 02/09/24
Time Specimen was Collected: 00:55
Activity As Directed
Activity Level: With Assistance
Fry Catheter [Catheter- Indwelling] As Directed
Reason for insertion: Chronic Fry on Admit
Orthostatic Vital Signs As Directed
Orthostatic VS Frequency: BID
Vital Signs As Directed
Frequency: Per unit guidelines
Ot Eval And Treat Routine
Pt Eval And Treat Routine
Activity Level: With Assistance
DX Deep Vein Thrombosis Video Routine
02/08/24 22:00
Donepezil HCl [Aricept] 10 mg PO HS
02/09/24 05:53
Cardiovascular Evaluation IN AM
Complete Blood Count/No Diff IN AM
Comprehensive Metabolic Panel IN AM
Lipase IN AM
02/09/24 08:00
Lactobac/Bifidobac [Visbiome] 1 cap PO DAILY
enzalutamide [Xtandi] See Dose Instructions PO DAILY
02/09/24 18:00
Atorvastatin [Lipitor] 10 mg PO QPM
Finasteride [Proscar] 5 mg PO QPM
Abnormal Lab Results
02/08/24 02/08/24
12:53 18:23
RBC 2.65 L 10^6/uL
(4.70-6.10)
Hgb 8.3 L g/dL
(13.0-18.0)
Hct 24.9 L %
(39.0-52.0)
MCH 31.3 H pg
(27.0-31.0)
RDW 18.3 H %
(11.5-14.5)
Abs Immat Gran (auto) 0.1 H 10^3/uL
(0-0.05)
Absolute Neuts (auto) 6.6 H 10^3/uL
(1.4-6.5)
Absolute Lymphs (auto) 0.3 L 10^3/uL
(1.2-3.4)
Immature Gran % 0.8 H %
(0-0.5)
Neutrophils % 88.1 H %
(42.2-75.2)
Lymphocytes % 4.0 L %
(20.5-51.1)
Sodium 126 L mmol/L
(135-145)
Chloride 95 L mmol/L
(98-107)
Carbon Dioxide 20 L mmol/L
(22-30)
BUN 21 H mg/dl
(9-20)
Glucose 143 H mg/dl
(70-99)
Serum Osmolality 262 L mOsm/kg
(275-300)
Alkaline Phosphatase 586 H U/L
(38-126)
Lipase 2326 H* U/L
(23-300)
Ur Occult Blood Reflex 3+ A
(Negative)
Urine Nitrite (Reflex) Positive A
(Negative)
Leukocyte Esterase Rfl 2+ A
(Negative)
Urine RBC 7-10 A /HPF
(0-2)
Urine WBC (Reflex) 30-40 A /HPF
(0-5)
Urine Bacteria (Reflex) Many A
(Negative)
02/08/24 12:53
02/08/24 12:53
Vital Signs
Initial and Last Documented VS:
Initial Vital Signs
Temp Pulse Resp BP Pulse Ox
98.1 F 60 18 117/63 100
02/08/24 12:37 02/08/24 12:37 02/08/24 12:37 02/08/24 12:37 02/08/24 12:37
Last Documented Vital Signs
Temp Pulse Resp BP Pulse Ox
99.0 F 85 18 109/59 99
02/10/24 15:53 02/10/24 15:53 02/10/24 15:53 02/10/24 15:53 02/10/24 15:53
<Sheron Butcher MD, Resident - Last Filed: 02/11/24 08:15>
MDM/Problems Addressed
Differential Diagnosis Includes:
Medication-induced pancreatitis, Acute on chronic pancreatitis secondary to chronic alcohol use, Hyponatremia, UTI
<Sheron Butcher MD, Resident - Last Filed: 02/11/24 08:15>
*Critical Care Note
Total Time (30-74mins, 75-104mins- exclusive of procedures): Not Applicable
ED Attending Note
<Sheron Butcher MD, Resident - Last Filed: 02/11/24 08:15>
-
Portions of this chart may have been created with voice recognition software.� Occasional wrong word or��sound alike� substitutions may have occurred due to the inherent limitations of voice recognition software.
<Aman Gamez MD - Last Filed: 02/08/24 16:44>
ED Attending Note
Patient seen and examined by attending physician: Yes
ED Attending Note:
Patient presents to ED secondary to multiple falls today from generalized weakness, without any injury. Denies headache. Denies neck pain. Denies chest pain or palpitations. Patient does admit to drinking wine every night, with intermittent
vomiting episodes. Denies abdominal pain. Denies fever or chills. Denies recent change in medications or diet. Patient states that he felt weak all over, when he fell to the ground while using his cane.
Physical Exam
General: no apparent distress, not acutely ill. weak appearing. afebrile
Head: nc/at. eomi
Neck: supple. no meningeal signs.
Heart: s1/s2 regular rate and rhythm, no murmur. equal radial pulses.
Lungs: no acute respiratory distress. clear bilaterally
Abdomen: normal bowel sounds. not tender.
Neuro: alert and oriented. no focal neurological deficits. normal speech.
Skin: no rash
Psychiatric: well kept. interactive and cooperative
Extremities: no edema. no calf tenderness.
Discharge Plan
Departure
Patient Disposition: Admit
Date of Disposition: 02/08/24
Time of Disposition: 16:43
Presentation/result/management discussed w/ accepting MD/DO: Hospitalist
Condition: Fair
Discharge Problem:
Hyponatremia, Dehydration, Pancreatitis
Interventions
Interventions:
*Risk Screen - Suicide Last Done: 02/08/24 12:37
*General Assessment Last Done: 02/08/24 12:37
*Neglect/Abuse Screening Last Done: 02/08/24 12:37
ED- Fall Risk Assessment Last Done: 02/08/24 15:15
*ED COVID-19 Vaccine History Last Done: 02/08/24 12:41
*Nursing Disposition Last Done: 02/08/24 20:20
ED- Cardiac Assessment Last Done: 02/08/24 15:15
ED-Musculoskeletal Assessment Last Done: 02/08/24 15:15
ED- Neurological Assessment Last Done: 02/08/24 15:15
ED- Pulmonary Assessment Last Done: 02/08/24 15:15
ED-Skin Assessment Last Done: 02/08/24 15:15
Discharge Date and Time
Discharge Date/Time: 02/08/24 20:21
[2024-02-08] MEDS: PROTONIX IV 40 MG IV (16:46)
[2024-02-08] MEDS: LR 1000 IV (16:47)
--- NOTE | 2024-02-08 16:56 | HPS.HSE ---
Addendum entered and electronically signed by Wyatt Allen MD 02/09/24 09:05:
I personally performed a history and physical exam of the patient and discussed management with the resident. I reviewed the resident's note and agree with the documented findings and plan of care HPI/CC.
Original Note:
Family Physician
-
Family Physician: Ayleen Botello
Chief Complaint
-
three falls today
History of Present Illness
Mr. Roderick Neves is an 83yoM pmh prostate cancer w mets to bone, HTN, HLD, BPH, Dementia who arrived to the ED for falling 3x today. This is out of the ordinary per the pt. Uses a walker at home. Pt Has been feeling weak and dizzy. Denies LOC,
hitting head. +fatigue, +chills,+N, +V +hematemesis, +bloody diarrhea x3d, +productive cough. -ALMAZAN, -CP, -fever, -SOB, -abdominal pain. Pt thinks there was blood somewhere, but seems to second guess where. Pt is an unreliable historian. Cannot recall
why he fell, it seems he was rationalizing the falls as a loss of balance and the room was maybe spinning.
Recently hospitalized for C. diff (01/15-01/22)
Questions if he has an allergy to sulfa abx.
Medical History
Past Medical History
Past Medical History: Reports Cancer, HTN, Hypercholesterolemia and Other (BPH, dementia)
Past Surgical History: Reports Appendectomy and Urological (cystoscopy)
Social History
Tobacco: Former Smoker (smoked a pipe >20yrs ago)
Alcohol: Daily (1 very full glass of white wine per day)
Drug: None
Personal:
Living: With Family
Family History
Family History: Not pertinent
Allergies / Home Medications
Allergies reflects when Allergies were last updated in [facility].
Home Medications with original date entered in [facility]
Allergy/Medication List:
Allergies
Allergy/AdvReac Type Severity Reaction Status Date / Time
Sulfa (Sulfonamide Allergy Unknown Verified 02/08/24 12:37
Antibiotics)
Home Medications
ascorbic acid (vitamin C) 500 mg tablet (Vitamin C) 500 mg PO DAILY Supplement 05/23/23
cholecalciferol (vitamin D3) 25 mcg (1,000 unit) tablet (Vitamin D3) 25 mcg PO DAILY Supplement 05/23/23
cyanocobalamin (vitamin B-12) 1,000 mcg tablet 1,000 mcg PO DAILY Supplement 05/23/23
finasteride 5 mg tablet 5 mg PO QPM Urinary Issue 05/23/23
tamsulosin 0.4 mg capsule (Flomax) 0.4 mg PO BID Urinary Issue 05/23/23
enzalutamide 40 mg tablet (Xtandi) 160 mg PO DAILY Cancer ##0 12/06/23
Lactobac no.2-Bifidobac no.1-S. thermo 112.5 billion cell capsule (Visbiome) 1 cap PO DAILY Supplement ##0 01/03/24
atorvastatin 10 mg tablet 10 mg PO QPM High Cholesterol 01/03/24
calcium carbonate (Calcium 600) 600 mg PO TID Supplement 01/03/24
coenzyme Q10 100 mg capsule (CoQ-10) 100 mg PO QPM Supplement 01/03/24
d-mannose 500 mg capsule (AZO D-Mannose) 500 mg PO QPM Supplement 01/03/24
denosumab 120 mg/1.7 mL (70 mg/mL) subcutaneous solution (Xgeva) 120 mg SC Q4W BONE 01/03/24
donepezil 10 mg tablet 10 mg PO HS Neurological Condition 01/03/24
leuprolide acetate (6 month) 45 mg intramuscular syringe kit (Lupron Depot) 45 mg IM [id number] Cancer ##0 01/03/24
benzonatate 100 mg capsule 100 mg PO TIDPRN PRN COUGH 02/08/24
Review of Systems
-
A 12 point ROS was completed and negative except as noted: Yes
Constitutional: Reports Fatigue and Chills; Denies Fever or Sleep Disturbance
EENT: Reports No Symptoms
Respiratory: Reports Cough and Hemoptysis; Denies Trouble Breathing
Cardiac: Reports No Symptoms
Abdomen/GI: Reports Nausea, Vomiting, Diarrhea and Bloody Stools; Denies Abdominal Pain or Constipated
: Reports No Symptoms
Musculoskeletal: Reports Joint Pain (R knee); Denies Muscle Stiffness
Skin: Reports No Symptoms
Neurological: Reports Dizzy; Denies Headache
Physical Exam
Vital Signs
Vital Signs
Temp Pulse Resp BP Pulse Ox
98.5 F 68 16 115/62 100
02/08/24 15:15 02/08/24 15:15 02/08/24 15:15 02/08/24 15:15 02/08/24 15:15
Physical Exam
General: Appears Chronically Ill and Cachectic
HEENT: NormoCephalic and Atraumatic
Respiratory: Clear
Cardiac: S1/S2, Regular Rhythm and Murmur (systolic); No Peripheral Edema
GI: Soft, Non Tender, Non Distended and Normal Bowel Sounds
Musculoskeletal: No Clubbing, No Cyanosis and No Edema
Skin: Warm, Dry and Rash (superior to forehead)
Neuro: Awake, Cranial Nerves Intact and DTR's Intact & Symmetrical
Psych: Confused
Laboratory Results
-
02/08/24 12:53
02/08/24 12:53
Laboratory Results
Total Bilirubin 0.6 mg/dl (0.2-1.3) 02/08/24 12:53
AST 38 U/L (17-59) 02/08/24 12:53
ALT 18 U/L (0-50) 02/08/24 12:53
Alkaline Phosphatase 586 U/L (38-126) H 02/08/24 12:53
Lipase 2326 U/L (23-300) H* 02/08/24 12:53
Impression/Plan
-
IMPRESSION:
Acute pancreatitis
Mechanical fall
Chronic Normocytic Anemia
Hyponatremia
Prostate cancer metastatic to bone
HTN
HLD
BPH
Dementia
Hx recent C. difficile infection
Acidosis
PLAN:
Acute pancreatitis
- IVF, pain control, antiemetics
- prophylactic constipation - senna, dulcolax, miralax
- repeat lipase
- lipid panel
- liver/abdo u/s
Mechanical fall
Chronic Normocytic Anemia
Hyponatremia
- orthostatic vitals
- urine Osm, urine Na, serum Osm
- ECG
- PT/OT
- replete w IVF
- cardio consult
- monitor cbc, cmp
Prostate cancer metastatic to bone
BPH
Elevated ALP
- cont xandi
- cont finasteride, tamsulosin
HTN
- not on meds at this time
HLD
- cont statin
Dementia
- cont donepezil
Hx recent C. difficile infection
Acidosis
DVT prophylaxis
- lovenox
Code status: FULL CODE
Diet: clear liquids
--- NOTE | 2024-02-08 16:56 | EDRN ---
the pt stated that he was too dizzy for orthostatic vital signs, this RN notified the provider
[2024-02-08 17:05] LABS: Magnesium 1.6 mg/dl (1.6-2.3)
--- NOTE | 2024-02-08 17:15 | W.PN.UPDATE ---
Update Note
Progress Note Update
I personally performed a history and physical exam of the patient and discussed management with the resident. I reviewed the resident's note and agree with the documented findings and plan of care HPI/CC.
83-year-old male with metastatic prostate cancer, history of chronic urine retention with indwelling Fry catheter, hyperlipidemia, recent C. difficile colitis, chronic anemia from possible malignant marrow involvement, problem with memory, benign
prostatic hyperplasia came to ER after having multiple falls at home today. Patient denies of losing consciousness/hitting head. From yesterday patient having few episodes of vomiting, bilious in nature no blood noted. Denies any abdominal
pain/fever. Have some episodes of loose stool without blood either. Patient able to provide limited history in the ER although not voicing any major complaints. Denies any associated chest pain/palpitation/shortness of breath/dizziness.
HEENT: No pallor, cyanosis, or jaundice. Throat clear.
NECK: Supple. No JVD.
RESPIRATORY: Lungs clear to auscultation.
CVS: S1, S2 normal. RRR. No murmur, rub or gallop.
ABDOMEN: Soft, non-tender. No distension. BS+/normal.
EXTREMITIES: No peripheral cyanosis or edema.
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 No focal deficits.
1. Acute pancreatitis
Nausea/vomiting
-Patient had episode of nausea vomiting although no abdominal pain
-Lipase elevated to 2326
-LFT within normal limit except ALP of 586
-Calcium 9.7, no history of cholelithiasis, questionable use of alcohol
-Maintain patient on CL Diet for now
-Recheck lipase in morning
-Further abdominal imaging if patient clinically/lab riojas does not improve
2. Acute hyponatremia
-Check urine sodium/urine osmolality
-Suspecting volume loss related from ongoing diarrhea/nausea vomiting
3. Metastatic prostate cancer
-Bone scan from January 14 reviewed and patient have diffuse bony mets involving axial bone
-Currently not voicing any problem with bone pain
-Follows with [facility]
-On regimen of xtandi/xgeva/depot lupron inj
4. 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
BPH
-Patient was provided voiding trial in urology office, failed
-Currently have indwelling Fry catheter continue
4. Recent Cdiff colitis
-Patient is recovered from C. difficile colitis episode last month
-Currently on Visbiome and will continue
-If patient have repeat episode of diarrhea will need to be rechecked for Cdiff.
5. Mild cognitive impairment
-Patient able to provide clear history although forgetful about certain things
-Currently on donepezil 10 mg at nighttime, continue
DVT PPX - lovenox
Total time spent : 78 mins
I personally saw and examined the patient.
I have reviewed all diagnostic interpretations and treatment plans as written.
Time includes patient management by me, time spent at the patients bedside, time to review lab and imaging results, discussing patient care, documentation in the medical record, and time spent with the family or caregiver and discussing care plan
with RN/Consultants.
[2024-02-08 18:28] LABS: Urine Albumin Trace (Neg - Trace); Urine Bilirubin Negative (Negative); Urine Character Very Cloudy (Clear); Urine Color Yellow; Urine Glucose Negative (Negative); Urine Ketone Negative (Negative); Urine Leukocyte 2+ (Negative); Urine Nitrite Positive (Negative); Urine Occult Blood 3+ (Negative); Urine Specific Gravity 1.015 (<1.030); Urine Urobilinogen Negative (Neg - 1+)
[2024-02-08 18:45] LABS: Urine Bacteria Many (Negative); Urine White Cell 30-40 /HPF (0-5)
[2024-02-08 18:53] LABS: Osmolality Serum 262 mOsm/kg (275-300)
[2024-02-08 19:14] LABS: Urine Sodium 40 mmol/L (30-90)
[2024-02-08] MEDS: FLOMAX 0.4 MG PO (21:38)
[2024-02-08] MEDS: LOVENOX 40 MG SC (21:39)
[2024-02-08] MEDS: ARICEPT 10 MG PO (21:39)
--- NOTE | 2024-02-08 22:00 | PTCARENOTE ---
2024 Received pt from ED via stretcher. Medsurg order. VSS afebrile, HR 66, RR 18, BP 123/61, pox 100% RA, no c/o pain. PMH history and plan reviewed by this RN and patient. Pt oriented to room, call betts within reach. Pt also brought in monroy.
Security came to room to count monroy with pt and this RN. Monies secured in Security's office. Pt unsure if he brought wallet to ED. Secruity checked ED room and there was no wallet found. Ticket placed in pt chart.
[2024-02-08 23:13] LABS: TSH 1.88 uIU/ml (0.47-4.68)
[2024-02-09] MEDS: LR 1000 IV (00:49)
[2024-02-09 01:15] LABS: Osmolality Urine 77 mOsm/kg (300-900)
[2024-02-09 06:32] LABS: Hematocrit 22.1 % (39.0-52.0); Hemoglobin 7.5 g/dL (13.0-18.0); Mean Corp Hgb Conc. 33.9 g/dL (33.0-37.0); Mean Corpuscular Hgb 31.9 pg (27.0-31.0); Platelet Count 268 10^3/uL (130-400); Red Blood Cell Count 2.35 10^6/uL (4.70-6.10); Red Cell Dist. Width 18.9 % (11.5-14.5); White Blood Cell Count 5.1 10^3/uL (4.8-10.8)
[2024-02-09 06:59] LABS: ALT (SGPT) 15 U/L (0-50); AST (SGOT) 33 U/L (17-59); Alkaline Phosphatase 539 U/L (38-126); Blood Urea Nitrogen 15 mg/dl (9-20); Calcium 8.1 mg/dl (8.4-10.2); Carbon Dioxide 21 mmol/L (22-30); Chloride 105 mmol/L (98-107); Estimated Creatinine Clearance 56 ml/min; Glucose 82 mg/dl (70-99); HDL Cholesterol 50 mg/dl; LDL Cholesterol, Calculated 58 mg/dl; Lipase 255 U/L (23-300); Potassium 3.9 mmol/L (3.5-5.1); Sodium 135 mmol/L (135-145); Total Bilirubin 0.5 mg/dl (0.2-1.3); Total Cholesterol 129 mg/dl (50-199); Total Protein 5.4 g/dl (6.3-8.2); Triglyceride 109 mg/dl (10-149); Very Low Density Lipoprotein 21 mg/dl (0-30); eGFR > 60.00
[2024-02-09 07:13] VITALS: BP 110/60
[2024-02-09] MEDS: VISBIOME 1 CAP PO (08:52)
[2024-02-09] MEDS: FLOMAX 0.4 MG PO ×2 (08:52→20:14)
--- NOTE | 2024-02-09 09:06 | W.PN.HOSP.TC ---
Today's Communication/Plan
-
PT/OT evalu
LF diet
stop IVF
possible discharge in 24 hrs
Assessment / Plan
Assessment / Plan
1. Acute pancreatitis - Improved
Nausea/vomiting - Improved
-Patient had episode of nausea vomiting although no abdominal pain
-Lipase elevated to 2326
-LFT within normal limit except ALP of 586
-Calcium 9.7, no history of cholelithiasis, questionable use of alcohol
-Recheck lipase back to normal today
-Check Liver/gb US for possible stone, clinically less likely as no cholelithiasis on previous imaging. need to r/o any metastatic pathology as well . Most likely this is due to alcohol use related with drinking glass of wine
2. Acute hypovolemic hyponatremia -resolved
-Urine Na 40 and Usom 77, pointing toward recovery hypovolemic
-Suspecting volume loss related from ongoing diarrhea/nausea vomiting
-Na recovered to 135 after LR, stop further fluid
3. Metastatic prostate cancer
-Bone scan from January 14 reviewed and patient have diffuse bony mets involving axial bone
-Currently not voicing any problem with bone pain
-Follows with [facility]
-On regimen of Xtandi/Xgeva/depot Lupron inj
4. 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
BPH
-Patient was provided voiding trial in urology office, failed
-Currently have indwelling Fry catheter continue
4. Recent Cdiff colitis
-Patient is recovered from C. difficile colitis episode last month
-Currently on Visbiome and will continue
-If patient have repeat episode of diarrhea will need to be rechecked for Cdiff.
5. Mild cognitive impairment
-Patient able to provide clear history although forgetful about certain things
-Currently on donepezil 10 mg at nighttime, continue
DVT PPX - lovenox
PT/OT evaluation
Anticipated Discharge: Within 24 hours
Subjective/Interval History
-
Date of Service: February 09, 2024
patient denies of having any abd pain/nausea/vomiting overnight
no diarrhea
afebrile overnight
Objective Data
-
Labs:
Laboratory Results
02/09/24
05:53
WBC 5.1
Hgb 7.5 L
Hct 22.1 L
Plt Count 268
Sodium 135 D
Potassium 3.9
Chloride 105
Carbon Dioxide 21 L
BUN 15
Creatinine 0.9
Glucose 82
Calcium 8.1 L D
Total Bilirubin 0.5
AST 33
ALT 15
Alkaline Phosphatase 539 H
Vital Signs:
Vital Signs
Temp Pulse Resp BP Pulse Ox
97.8 F 101 18 115/60 100
02/08/24 23:26 02/08/24 23:26 02/08/24 23:26 02/08/24 23:26 02/09/24 01:08
I&O
02/08/24 02/09/24 02/10/24
06:59 06:59 06:59
Intake Total 1475 / 1475
Output Total 2650 / 2650
Balance -1175 / -1175
Review of Systems
-
Respiratory: Reports No Symptoms
Cardiac: Reports No Symptoms
Abdomen/GI: Denies Abdominal Pain, Nausea or Vomiting
Physical Exam
-
General: Comfortable and Cachectic
HEENT: Negative Oxygen
Respiratory: Clear to Auscultation
Cardiac: Regular Rhythm and S1/S2; Negative Murmur or Rub
GI: Soft, Nontender and Nondistended
Musculoskeletal: No Edema
Neuro: Awake, Alert, Oriented, No Motor Deficits and Nonfocal/Grossly Intact
Psych: Calm
[2024-02-09 09:34] VITALS: BP 110/59
[2024-02-09 09:37] VITALS: BP 110/59; PULSE 68; O2SAT 98
--- NOTE | 2024-02-09 14:09 | CM ---
Patient seen at bedside with . Patient home is a 2 story home. Patient PCP is Dr. Botello and patient uses [facility] [address]. Patient has had [facility] in the past and home instead as home health aides. Patient plan is for discharge
home with VN. CM will continue to follow for discharge planning needs.
Plan; home with family; VN referral pending medical plan.
[2024-02-09 15:00] VITALS: BP 92/49
[2024-02-09] MEDS: LOVENOX 40 MG SC (18:17)
[2024-02-09] MEDS: LIPITOR 10 MG PO (18:20)
[2024-02-09] MEDS: PROSCAR 5 MG PO (18:20)
[2024-02-09 19:56] VITALS: BP 118/58; BP 118/60; BP 124/62; PULSE 72; PULSE 77; PULSE 80
[2024-02-09] MEDS: ARICEPT 10 MG PO (20:14)
[2024-02-09 23:54] VITALS: BP 109/65
[2024-02-10 06:40] LABS: Hematocrit 23.4 % (39.0-52.0); Hemoglobin 7.8 g/dL (13.0-18.0); Mean Corp Hgb Conc. 33.3 g/dL (33.0-37.0); Mean Corpuscular Volume 95.9 fL (80.0-94.0); Mean Platelet Volume 9.8 fL (7.4-10.4); Platelet Count 260 10^3/uL (130-400); Red Blood Cell Count 2.44 10^6/uL (4.70-6.10); Red Cell Dist. Width 19.5 % (11.5-14.5); White Blood Cell Count 7.3 10^3/uL (4.8-10.8)
[2024-02-10 07:10] LABS: Blood Urea Nitrogen 15 mg/dl (9-20); Carbon Dioxide 21 mmol/L (22-30); Chloride 107 mmol/L (98-107); Estimated Creatinine Clearance 50 ml/min; Glucose 86 mg/dl (70-99); Potassium 4.3 mmol/L (3.5-5.1); Sodium 137 mmol/L (135-145); eGFR > 60.00
[2024-02-10 08:00] VITALS: BP 107/55
[2024-02-10] MEDS: VISBIOME 1 CAP PO (08:09)
[2024-02-10] MEDS: FLOMAX 0.4 MG PO (08:09)
--- NOTE | 2024-02-10 11:17 | W.PN.HOSP.TC ---
Today's Communication/Plan
-
d/c home
Assessment / Plan
Assessment / Plan
1. Acute pancreatitis - Improved
Nausea/vomiting - Improved
-Patient had episode of nausea vomiting although no abdominal pain
-Lipase elevated to 2326
-LFT within normal limit except ALP of 586
-Calcium 9.7, no history of cholelithiasis, questionable use of alcohol
-Lipase 225.
-Liver/GB US neg, Most likely this is due to alcohol use related with drinking glass of wine every day. patient counselled on stopping alcohol use
2. Acute hypovolemic hyponatremia -resolved
-Urine Na 40 and Usom 77, pointing toward recovery hypovolemic
-Suspecting volume loss related from ongoing diarrhea/nausea vomiting
-Na recovered to 135 after LR, stop further fluid
3. Metastatic prostate cancer
-Bone scan from January 14 reviewed and patient have diffuse bony mets involving axial bone
-Currently not voicing any problem with bone pain
-Follows with [facility]
-On regimen of Xtandi/Xgeva/depot Lupron inj
4. 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
BPH
-Patient was provided voiding trial in urology office, failed
-Currently have indwelling Fry catheter continue
4. Recent Cdiff colitis
-Patient is recovered from C. difficile colitis episode last month
-Currently on Visbiome and will continue
5. Mild cognitive impairment
-Patient able to provide clear history although forgetful about certain things
-Currently on donepezil 10 mg at nighttime, continue
DVT PPX - lovenox
PT/OT evaluated and recommended home PT vs rehab
CM consult placed for home VN care.
Anticipated Discharge: Today
Subjective/Interval History
-
Date of Service: February 10, 2024
no abd pain/n/v
no diarrhea
Objective Data
-
Labs:
Laboratory Results
02/10/24
06:06
WBC 7.3
Hgb 7.8 L
Hct 23.4 L
Plt Count 260
Sodium 137
Potassium 4.3
Chloride 107
Carbon Dioxide 21 L
BUN 15
Creatinine 1.0
Glucose 86
Calcium 8.0 L
Vital Signs:
Vital Signs
Temp Pulse Resp BP Pulse Ox
98.5 F 68 18 107/55 98
02/10/24 08:00 02/10/24 08:00 02/10/24 08:00 02/10/24 08:00 02/10/24 08:00
I&O
02/09/24 02/10/24 02/11/24
06:59 06:59 06:59
Intake Total 1475 / 1475 1620 / 1620
Output Total 2650 / 2650 2750 / 2750
Balance -1175 / -1175 -1130 / -1130
Review of Systems
-
Respiratory: Reports No Symptoms
Cardiac: Reports No Symptoms
Abdomen/GI: Reports No Symptoms
Physical Exam
-
General: Comfortable and Cachectic
HEENT: Negative Oxygen
Respiratory: Clear to Auscultation
Cardiac: Regular Rhythm and S1/S2; Negative Murmur or Rub
GI: Soft, Nontender and Nondistended
Musculoskeletal: No Edema
Neuro: Awake, Alert, Oriented, No Motor Deficits and Nonfocal/Grossly Intact
Psych: Calm
--- NOTE | 2024-02-10 13:16 | CM ---
Addendum entered by Sherita Hernandez 02/10/24 13:27:
IMM completed and on chart. please send clinical to [facility] at [phone]
Original Note:
Patient referral to [facility] sent via all scripts. CM will review IMM and confirm with patient and family.
--- NOTE | 2024-02-10 15:12 | W.DCSUMMARY ---
Discharge Summary
Discharge Data
Date of Admission: 02/08/24
Date of Discharge: 02/10/24
-
Pending Results: No
Hospital Course
Discharging Physician : Dr Wyatt Allen
Disposition : Home with
Primary care physician : Dr antonella Botello
Principal Discharge diagnosis :
Acute pancreatitis
Acute hypovolemic hyponatremia
Chronic Discharge diagnosis :
Metastatic prostate cancer
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
Benign prostatic hyperplasia
Recent clostridium difficile colitis
Mild cognitive impairment
Hospital Course :
Patient is 83-year-old male with mentioned past medical history come to [place] after having 3 mechanical falls patient was weakness. Patient denied of passing out at any point. Patient also was reporting having episodes of vomiting and
diarrhea to before. On lab evaluation in ER patient was noted to having elevated lipase, patient was noted to be hyponatremic as well. Patient was made n.p.o. and maintained on IV fluid. Patient will liver and gallbladder ultrasound which did not
show any gallbladder/biliary abnormalities. Patient pancreatitis likely secondary to alcohol use related as patient likes to drink 1 glass of wine every day. Patient was counseled on alcohol cessation. Patient lipase trended down to normal within
48 hours. Patient was started on trial of diet which patient was able to tolerate without any problems. Urinalysis suggestive of patient hyponatremia and hypovolemic in nature from secondary to vomiting/diarrhea. After IV fluid patient sodium
normalized within 24 hours. Post clinical improvement patient was discharged home with home health care.
Important imaging findings :
None
Procedure findings :
None
Discharge Plan
-
Patient Disposition: Home (Routine Discharge)
Discharge Diagnosis/Procedures: Acute pancreatitis, alcohol used
Condition: Fair
Diet: Low Fat
Additional Diets: Low fat diet for 5 days
Activity: As tolerated
Driving Restrictions: No driving
Bathing Restrictions: OK to Shower
Referrals:
Antonella Botello MD [Family Provider] - in one week
Prescriptions:
Continued
cyanocobalamin (vitamin B-12) 1,000 mcg Tablet
1,000 mcg PO DAILY
ascorbic acid (vitamin C) [Vitamin C] 500 mg Tablet
500 mg PO DAILY
tamsulosin [Flomax] 0.4 mg Capsule
0.4 mg PO BID
finasteride 5 mg Tablet
5 mg PO QPM
cholecalciferol (vitamin D3) [Vitamin D3] 25 mcg (1,000 unit) Tablet
25 mcg PO DAILY
Xtandi 40 mg Tablet
160 mg PO DAILY Qty: 0
Patient Comments:
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
atorvastatin 10 mg Tablet
10 mg PO QPM
donepezil 10 mg Tablet
10 mg PO HS
calcium carbonate [Calcium 600] 600 mg calcium (1,500 mg) Tablet
600 mg PO TID
coenzyme Q10 [CoQ-10] 100 mg Capsule
100 mg PO QPM
Visbiome 112.5 billion cell Capsule
1 cap PO DAILY Qty: 0
Xgeva 120 mg/1.7 mL (70 mg/mL) Solution
120 mg SC Q4W
Lupron Depot (6 Month) 45 mg Syringe Kit
45 mg IM [id number] Qty: 0
AZO D-Mannose 500 mg Capsule
500 mg PO QPM
benzonatate 100 mg Capsule
100 mg PO TIDPRN PRN (Reason: COUGH)
Discharge Orders:
Discharge Patient (As Directed); Ordered 02/10/24
Ordered By: Wyatt Allen
Discharge Date and Time
Print Language: YORUBA
[2024-02-10 15:53] VITALS: BP 109/59
== END 2024-02-10 16:18 | disposition home health service (06) | DRG 439 ==
LOC: 2 NORTH 19:55
PROVIDERS: Emergency Medicine; ADMITTING PHYSICIAN Hospitalist; EMERGENCY PHYSICIAN Emergency Medicine; FAMILY PHYSICIAN Family Medicine
DX: K85.90 Acute pancreatitis without necrosis or infection, unspecified (principal); C79.51 Secondary malignant neoplasm of bone; E87.1 Hypo-osmolality and hyponatremia; C61 Malignant neoplasm of prostate; Z87.891 Personal history of nicotine dependence; N40.0 Benign prostatic hyperplasia without lower urinary tract symptoms; E86.1 Hypovolemia
CPT/HCPCS: 76700; 80048; 80053; 80061; 81003; 81015; 83690; 83735; 83930; 83935; 84300; 84443; 85025; 85027; 87077; 87086; 87186; 93005; 96361; 96374; 97162; 97166; 99284

== ENCOUNTER → 2024-02-18 09:41 | Outpatient (REF) | payer MEDICARE, SELFPAY ==
[2024-02-18 10:28] LABS: % Basophils 0.5 % (0-2); % Eosinophils 3.3 % (0-6); % Immature Granulocytes 4.2 % (0-0.5); % Lymphocytes 22.2 % (20.5-51.1); % Monocytes 9.9 % (1.7-9.3); % Neutrophils 59.9 % (42.2-75.2); Absolute Eosinophils 0.1 10^3/uL (0-0.7); Absolute Immature Granulocytes 0.2 10^3/uL (0-0.05); Absolute Lymphocytes 0.9 10^3/uL (1.2-3.4); Absolute Monocytes 0.4 10^3/uL (0.1-0.6); Absolute Neutrophils 2.5 10^3/uL (1.4-6.5); Hematocrit 26.4 % (39.0-52.0); Hemoglobin 8.5 g/dL (13.0-18.0); Mean Corp Hgb Conc. 32.2 g/dL (33.0-37.0); Mean Corpuscular Hgb 32.3 pg (27.0-31.0); Mean Corpuscular Volume 100.4 fL (80.0-94.0); Mean Platelet Volume 9.7 fL (7.4-10.4); Nucleated Red Blood Cells % 0 % (-); Platelet Count 228 10^3/uL (130-400); Red Blood Cell Count 2.63 10^6/uL (4.70-6.10); White Blood Cell Count 4.2 10^3/uL (4.8-10.8)
[2024-02-18 11:06] LABS: ALT (SGPT) 12 U/L (0-50); AST (SGOT) 16 U/L (17-59); Albumin 3.6 g/dl (3.5-5.0); Alkaline Phosphatase 456 U/L (38-126); Blood Urea Nitrogen 25 mg/dl (9-20); Calcium 9.9 mg/dl (8.4-10.2); Carbon Dioxide 24 mmol/L (22-30); Chloride 107 mmol/L (98-107); Glucose 92 mg/dl (70-99); Iron 117 ug/dl (49-181); Potassium 4.4 mmol/L (3.5-5.1); Sodium 143 mmol/L (135-145); Total Bilirubin 0.1 mg/dl (0.2-1.3); Total Protein 6.1 g/dl (6.3-8.2); eGFR > 60.00
[2024-02-18 11:15] LABS: Percent Saturation 60 % (20-50); Total Iron Binding Capacity 195 ug/dl (261-462)
[2024-02-18 12:06] LABS: Vitamin B12 874 pg/ml (239-931)
[2024-02-20 12:26] LABS: Albumin 3.04 g/dL (3.75-5.01); Alpha 1 Globulin 0.43 g/dL (0.19-0.46); Alpha 2 Globulin 1.12 g/dL (0.48-1.05); SPEP IFE Reflex Not Done
== END ==
LOC: REG 09:41
PROVIDERS: ATTENDING PHYSICIAN Internal Medicine Hematology & Oncology; FAMILY PHYSICIAN Family Medicine
DX: C61 Malignant neoplasm of prostate (principal); C79.51 Secondary malignant neoplasm of bone; N32.0 Bladder-neck obstruction; G89.3 Neoplasm related pain (acute) (chronic); D64.9 Anemia, unspecified
CPT/HCPCS: 36415; 80053; 82607; 82746; 83540; 83550; 84153; 84155; 84165; 85025

== ENCOUNTER → 2024-03-03 08:29 | Outpatient (REF) | payer MEDICARE, SELFPAY ==
[2024-03-03 10:18] LABS: % Basophils 0.6 % (0-2); % Eosinophils 3.8 % (0-6); % Immature Granulocytes 0.3 % (0-0.5); % Lymphocytes 23.8 % (20.5-51.1); % Monocytes 12.7 % (1.7-9.3); % Neutrophils 58.8 % (42.2-75.2); Absolute Eosinophils 0.1 10^3/uL (0-0.7); Absolute Lymphocytes 0.8 10^3/uL (1.2-3.4); Absolute Monocytes 0.4 10^3/uL (0.1-0.6); Absolute Neutrophils 1.9 10^3/uL (1.4-6.5); Hematocrit 28.4 % (39.0-52.0); Hemoglobin 8.9 g/dL (13.0-18.0); Mean Corp Hgb Conc. 31.3 g/dL (33.0-37.0); Mean Corpuscular Hgb 32.8 pg (27.0-31.0); Mean Corpuscular Volume 104.8 fL (80.0-94.0); Mean Platelet Volume 10.1 fL (7.4-10.4); Nucleated Red Blood Cells % 0 % (-); Platelet Count 259 10^3/uL (130-400); Red Blood Cell Count 2.71 10^6/uL (4.70-6.10); Red Cell Dist. Width 20.8 % (11.5-14.5); White Blood Cell Count 3.2 10^3/uL (4.8-10.8)
[2024-03-03 10:37] LABS: ALT (SGPT) 12 U/L (0-50); AST (SGOT) 21 U/L (17-59); Albumin 3.9 g/dl (3.5-5.0); Alkaline Phosphatase 413 U/L (38-126); Blood Urea Nitrogen 26 mg/dl (9-20); Calcium 8.6 mg/dl (8.4-10.2); Carbon Dioxide 21 mmol/L (22-30); Chloride 109 mmol/L (98-107); Glucose 89 mg/dl (70-99); Iron 103 ug/dl (49-181); Magnesium 2.1 mg/dl (1.6-2.3); Potassium 4.7 mmol/L (3.5-5.1); Sodium 142 mmol/L (135-145); Total Bilirubin 0.5 mg/dl (0.2-1.3); Total Protein 6.4 g/dl (6.3-8.2); eGFR > 60.00
[2024-03-03 10:46] LABS: Percent Saturation 38 % (20-50); Total Iron Binding Capacity 268 ug/dl (261-462)
== END ==
LOC: REG 08:29
PROVIDERS: ATTENDING PHYSICIAN Internal Medicine Hematology & Oncology; FAMILY PHYSICIAN Family Medicine
DX: C61 Malignant neoplasm of prostate (principal); C79.51 Secondary malignant neoplasm of bone; N32.0 Bladder-neck obstruction; G89.3 Neoplasm related pain (acute) (chronic); D64.9 Anemia, unspecified; N18.30 Chronic kidney disease, stage 3 unspecified; D63.1 Anemia in chronic kidney disease
CPT/HCPCS: 36415; 80053; 83540; 83550; 83735; 84153; 85025

== ENCOUNTER → 2024-03-14 10:02 | Outpatient (REF) | payer MEDICARE, SELFPAY ==
[2024-03-14 11:48] LABS: % Basophils 0.6 % (0-2); % Eosinophils 5.2 % (0-6); % Immature Granulocytes 0.6 % (0-0.5); % Lymphocytes 20.9 % (20.5-51.1); % Monocytes 15.4 % (1.7-9.3); % Neutrophils 57.3 % (42.2-75.2); Absolute Eosinophils 0.2 10^3/uL (0-0.7); Absolute Lymphocytes 0.7 10^3/uL (1.2-3.4); Absolute Monocytes 0.5 10^3/uL (0.1-0.6); Hematocrit 28.8 % (39.0-52.0); Hemoglobin 9.2 g/dL (13.0-18.0); Mean Corp Hgb Conc. 31.9 g/dL (33.0-37.0); Mean Corpuscular Hgb 34.3 pg (27.0-31.0); Mean Corpuscular Volume 107.5 fL (80.0-94.0); Mean Platelet Volume 10.5 fL (7.4-10.4); Nucleated Red Blood Cells % 0 % (-); Platelet Count 241 10^3/uL (130-400); Red Blood Cell Count 2.68 10^6/uL (4.70-6.10); Red Cell Dist. Width 19.5 % (11.5-14.5); White Blood Cell Count 3.5 10^3/uL (4.8-10.8)
== END ==
LOC: REG 10:02
PROVIDERS: ATTENDING PHYSICIAN Internal Medicine Hematology & Oncology
DX: C61 Malignant neoplasm of prostate (principal); C79.51 Secondary malignant neoplasm of bone; N32.0 Bladder-neck obstruction; G89.3 Neoplasm related pain (acute) (chronic); D64.9 Anemia, unspecified; N18.30 Chronic kidney disease, stage 3 unspecified; D63.1 Anemia in chronic kidney disease
CPT/HCPCS: 36415; 85025

== ENCOUNTER → 2024-03-26 11:58 | Outpatient (REF) | payer MEDICARE, SELFPAY ==
[2024-03-26 14:19] LABS: % Basophils 0.5 % (0-2); % Eosinophils 2.1 % (0-6); % Immature Granulocytes 0.5 % (0-0.5); % Monocytes 10.4 % (1.7-9.3); % Neutrophils 67.5 % (42.2-75.2); Absolute Eosinophils 0.1 10^3/uL (0-0.7); Absolute Lymphocytes 0.8 10^3/uL (1.2-3.4); Absolute Monocytes 0.5 10^3/uL (0.1-0.6); Absolute Neutrophils 2.9 10^3/uL (1.4-6.5); Hematocrit 32.3 % (39.0-52.0); Hemoglobin 10.3 g/dL (13.0-18.0); Mean Corp Hgb Conc. 31.9 g/dL (33.0-37.0); Mean Corpuscular Hgb 33.7 pg (27.0-31.0); Mean Corpuscular Volume 105.6 fL (80.0-94.0); Mean Platelet Volume 9.9 fL (7.4-10.4); Nucleated Red Blood Cells % 0 % (-); Platelet Count 304 10^3/uL (130-400); Red Blood Cell Count 3.06 10^6/uL (4.70-6.10); Red Cell Dist. Width 18.9 % (11.5-14.5); White Blood Cell Count 4.3 10^3/uL (4.8-10.8)
[2024-03-26 14:40] LABS: ALT (SGPT) 12 U/L (0-50); AST (SGOT) 22 U/L (17-59); Albumin 4.2 g/dl (3.5-5.0); Alkaline Phosphatase 303 U/L (38-126); Blood Urea Nitrogen 25 mg/dl (9-20); Calcium 10.4 mg/dl (8.4-10.2); Carbon Dioxide 25 mmol/L (22-30); Chloride 106 mmol/L (98-107); Glucose 87 mg/dl (70-99); Potassium 4.8 mmol/L (3.5-5.1); Sodium 141 mmol/L (135-145); Total Bilirubin 0.4 mg/dl (0.2-1.3); eGFR > 60.00
== END ==
LOC: REG 11:58
PROVIDERS: ATTENDING PHYSICIAN Internal Medicine Hematology & Oncology; FAMILY PHYSICIAN Family Medicine
DX: C61 Malignant neoplasm of prostate (principal); C79.51 Secondary malignant neoplasm of bone; N32.0 Bladder-neck obstruction; G89.3 Neoplasm related pain (acute) (chronic); D64.9 Anemia, unspecified; N18.30 Chronic kidney disease, stage 3 unspecified
CPT/HCPCS: 36415; 80053; 84153; 85025

== ENCOUNTER → 2024-04-10 13:15 | Outpatient (REF) | payer MEDICARE, SELFPAY ==
[2024-04-10 14:01] LABS: % Basophils 0.9 % (0-2); % Eosinophils 3.5 % (0-6); % Immature Granulocytes 0.6 % (0-0.5); % Lymphocytes 27.2 % (20.5-51.1); % Neutrophils 53.8 % (42.2-75.2); Absolute Eosinophils 0.1 10^3/uL (0-0.7); Absolute Lymphocytes 0.9 10^3/uL (1.2-3.4); Absolute Monocytes 0.5 10^3/uL (0.1-0.6); Absolute Neutrophils 1.8 10^3/uL (1.4-6.5); Hematocrit 32.2 % (39.0-52.0); Hemoglobin 10.3 g/dL (13.0-18.0); Mean Corpuscular Hgb 34.1 pg (27.0-31.0); Mean Corpuscular Volume 106.6 fL (80.0-94.0); Mean Platelet Volume 9.7 fL (7.4-10.4); Nucleated Red Blood Cells % 0 % (-); Platelet Count 299 10^3/uL (130-400); Red Blood Cell Count 3.02 10^6/uL (4.70-6.10); Red Cell Dist. Width 17.6 % (11.5-14.5); White Blood Cell Count 3.4 10^3/uL (4.8-10.8)
[2024-04-10 14:10] LABS: ALT (SGPT) 12 U/L (0-50); AST (SGOT) 22 U/L (17-59); Albumin 4.2 g/dl (3.5-5.0); Alkaline Phosphatase 290 U/L (38-126); Blood Urea Nitrogen 30 mg/dl (9-20); Calcium 9.8 mg/dl (8.4-10.2); Carbon Dioxide 25 mmol/L (22-30); Chloride 108 mmol/L (98-107); Glucose 93 mg/dl (70-99); Iron 135 ug/dl (49-181); Potassium 4.7 mmol/L (3.5-5.1); Sodium 140 mmol/L (135-145); Total Bilirubin 0.3 mg/dl (0.2-1.3); Total Protein 6.8 g/dl (6.3-8.2); eGFR > 60.00
[2024-04-10 14:19] LABS: Percent Saturation 49 % (20-50); Total Iron Binding Capacity 272 ug/dl (261-462)
== END ==
LOC: RAD 13:15
PROVIDERS: ATTENDING PHYSICIAN Internal Medicine Hematology & Oncology; FAMILY PHYSICIAN Family Medicine
DX: C61 Malignant neoplasm of prostate (principal); C79.51 Secondary malignant neoplasm of bone; N32.0 Bladder-neck obstruction; G89.3 Neoplasm related pain (acute) (chronic); D64.9 Anemia, unspecified; N18.30 Chronic kidney disease, stage 3 unspecified; D63.1 Anemia in chronic kidney disease
CPT/HCPCS: 36415; 80053; 83540; 83550; 85025

== ENCOUNTER → 2024-04-11 09:12 | Outpatient (REF) | payer MEDICARE, SELFPAY | LOC: RAD 09:12 | PROVIDERS: ATTENDING PHYSICIAN Internal Medicine Hematology & Oncology | DX: C61 Malignant neoplasm of prostate (principal); C79.51 Secondary malignant neoplasm of bone; N32.0 Bladder-neck obstruction; G89.3 Neoplasm related pain (acute) (chronic); D64.9 Anemia, unspecified; N18.30 Chronic kidney disease, stage 3 unspecified; D63.1 Anemia in chronic kidney disease | CPT/HCPCS: 78306; A9503 ==

== ENCOUNTER → 2024-04-25 09:03 | Outpatient (REF) | payer MEDICARE, SELFPAY ==
[2024-04-25 10:06] LABS: % Basophils 0.5 % (0-2); % Eosinophils 2.7 % (0-6); % Lymphocytes 17.4 % (20.5-51.1); % Monocytes 10.6 % (1.7-9.3); % Neutrophils 68.8 % (42.2-75.2); Absolute Eosinophils 0.1 10^3/uL (0-0.7); Absolute Lymphocytes 0.8 10^3/uL (1.2-3.4); Absolute Monocytes 0.5 10^3/uL (0.1-0.6); Absolute Neutrophils 3.1 10^3/uL (1.4-6.5); Hematocrit 31.3 % (39.0-52.0); Mean Corp Hgb Conc. 31.9 g/dL (33.0-37.0); Mean Corpuscular Hgb 33.9 pg (27.0-31.0); Mean Corpuscular Volume 106.1 fL (80.0-94.0); Mean Platelet Volume 9.9 fL (7.4-10.4); Nucleated Red Blood Cells % 0 % (-); Platelet Count 256 10^3/uL (130-400); Red Blood Cell Count 2.95 10^6/uL (4.70-6.10); Red Cell Dist. Width 16.3 % (11.5-14.5); White Blood Cell Count 4.4 10^3/uL (4.8-10.8)
[2024-04-25 11:17] LABS: ALT (SGPT) 12 U/L (0-50); AST (SGOT) 20 U/L (17-59); Albumin 3.8 g/dl (3.5-5.0); Alkaline Phosphatase 262 U/L (38-126); Blood Urea Nitrogen 25 mg/dl (9-20); Calcium 9.7 mg/dl (8.4-10.2); Carbon Dioxide 22 mmol/L (22-30); Chloride 108 mmol/L (98-107); Glucose 91 mg/dl (70-99); Potassium 4.6 mmol/L (3.5-5.1); Sodium 139 mmol/L (135-145); Total Bilirubin 0.3 mg/dl (0.2-1.3); Total Protein 6.2 g/dl (6.3-8.2); eGFR > 60.00
== END ==
LOC: REG 09:03
PROVIDERS: ATTENDING PHYSICIAN Internal Medicine Hematology & Oncology; FAMILY PHYSICIAN Family Medicine
DX: C61 Malignant neoplasm of prostate (principal); C79.51 Secondary malignant neoplasm of bone; N32.0 Bladder-neck obstruction; G89.3 Neoplasm related pain (acute) (chronic); D64.9 Anemia, unspecified; N18.30 Chronic kidney disease, stage 3 unspecified; D63.1 Anemia in chronic kidney disease
CPT/HCPCS: 36415; 80053; 85025

== ENCOUNTER → 2024-05-22 11:01 | Outpatient (REF) | payer MEDICARE, SELFPAY ==
[2024-05-22 13:08] LABS: % Basophils 0.8 % (0-2); % Eosinophils 3.1 % (0-6); % Immature Granulocytes 0.3 % (0-0.5); % Lymphocytes 27.5 % (20.5-51.1); % Monocytes 14.1 % (1.7-9.3); % Neutrophils 54.2 % (42.2-75.2); Absolute Eosinophils 0.1 10^3/uL (0-0.7); Absolute Lymphocytes 1.1 10^3/uL (1.2-3.4); Absolute Monocytes 0.6 10^3/uL (0.1-0.6); Absolute Neutrophils 2.1 10^3/uL (1.4-6.5); Hematocrit 32.5 % (39.0-52.0); Hemoglobin 10.7 g/dL (13.0-18.0); Mean Corp Hgb Conc. 32.9 g/dL (33.0-37.0); Mean Corpuscular Hgb 34.2 pg (27.0-31.0); Mean Corpuscular Volume 103.8 fL (80.0-94.0); Mean Platelet Volume 9.9 fL (7.4-10.4); Nucleated Red Blood Cells % 0 % (-); Platelet Count 304 10^3/uL (130-400); Red Blood Cell Count 3.13 10^6/uL (4.70-6.10); Red Cell Dist. Width 14.5 % (11.5-14.5); White Blood Cell Count 3.9 10^3/uL (4.8-10.8)
[2024-05-22 13:30] LABS: ALT (SGPT) 12 U/L (0-50); AST (SGOT) 21 U/L (17-59); Albumin 4.1 g/dl (3.5-5.0); Alkaline Phosphatase 245 U/L (38-126); Blood Urea Nitrogen 30 mg/dl (9-20); Carbon Dioxide 21 mmol/L (22-30); Chloride 106 mmol/L (98-107); Glucose 91 mg/dl (70-99); Iron 103 ug/dl (49-181); Potassium 4.5 mmol/L (3.5-5.1); Sodium 138 mmol/L (135-145); Total Bilirubin 0.2 mg/dl (0.2-1.3); Total Protein 6.4 g/dl (6.3-8.2); eGFR > 60.00
[2024-05-22 13:39] LABS: Percent Saturation 39 % (20-50); Total Iron Binding Capacity 263 ug/dl (261-462)
== END ==
LOC: REG 11:01
PROVIDERS: ATTENDING PHYSICIAN Internal Medicine Hematology & Oncology; FAMILY PHYSICIAN Family Medicine
DX: C61 Malignant neoplasm of prostate (principal); C79.51 Secondary malignant neoplasm of bone; N32.0 Bladder-neck obstruction; G89.3 Neoplasm related pain (acute) (chronic); D64.9 Anemia, unspecified; N18.30 Chronic kidney disease, stage 3 unspecified; D63.1 Anemia in chronic kidney disease
CPT/HCPCS: 36415; 80053; 82728; 83540; 83550; 84153; 85025

== ENCOUNTER → 2024-06-23 10:32 | Outpatient (REF) | payer MEDICARE, SELFPAY ==
[2024-06-23 11:26] LABS: % Basophils 0.5 % (0-2); % Eosinophils 3.3 % (0-6); % Immature Granulocytes 0.3 % (0-0.5); % Lymphocytes 24.8 % (20.5-51.1); % Monocytes 11.3 % (1.7-9.3); % Neutrophils 59.8 % (42.2-75.2); Absolute Eosinophils 0.1 10^3/uL (0-0.7); Absolute Monocytes 0.5 10^3/uL (0.1-0.6); Absolute Neutrophils 2.4 10^3/uL (1.4-6.5); Hematocrit 35.6 % (39.0-52.0); Hemoglobin 11.4 g/dL (13.0-18.0); Mean Corpuscular Hgb 33.8 pg (27.0-31.0); Mean Corpuscular Volume 105.6 fL (80.0-94.0); Mean Platelet Volume 9.4 fL (7.4-10.4); Nucleated Red Blood Cells % 0 % (-); Platelet Count 272 10^3/uL (130-400); Red Blood Cell Count 3.37 10^6/uL (4.70-6.10); Red Cell Dist. Width 14.3 % (11.5-14.5)
[2024-06-23 12:09] LABS: ALT (SGPT) 15 U/L (0-50); AST (SGOT) 24 U/L (17-59); Albumin 3.8 g/dl (3.5-5.0); Alkaline Phosphatase 198 U/L (38-126); Blood Urea Nitrogen 33 mg/dl (9-20); Calcium 10.2 mg/dl (8.4-10.2); Carbon Dioxide 25 mmol/L (22-30); Chloride 109 mmol/L (98-107); Glucose 95 mg/dl (70-99); Iron 119 ug/dl (49-181); Potassium 4.9 mmol/L (3.5-5.1); Sodium 140 mmol/L (135-145); Total Bilirubin 0.5 mg/dl (0.2-1.3); Total Protein 6.5 g/dl (6.3-8.2); eGFR > 60.00
[2024-06-23 12:18] LABS: Percent Saturation 45 % (20-50); Total Iron Binding Capacity 264 ug/dl (261-462)
== END ==
LOC: REG 10:32
PROVIDERS: ATTENDING PHYSICIAN Internal Medicine Hematology & Oncology; FAMILY PHYSICIAN Family Medicine
DX: C61 Malignant neoplasm of prostate (principal); C79.51 Secondary malignant neoplasm of bone; N32.0 Bladder-neck obstruction; G89.3 Neoplasm related pain (acute) (chronic); D64.9 Anemia, unspecified; N18.30 Chronic kidney disease, stage 3 unspecified; D63.1 Anemia in chronic kidney disease
CPT/HCPCS: 36415; 80053; 82728; 83540; 83550; 84153; 85025

== ENCOUNTER → 2024-07-18 14:51 | Outpatient (REF) | payer MEDICARE, SELFPAY ==
[2024-07-18 15:58] LABS: % Basophils 0.8 % (0-2); % Eosinophils 4.4 % (0-6); % Immature Granulocytes 0.2 % (0-0.5); % Lymphocytes 25.3 % (20.5-51.1); % Monocytes 13.1 % (1.7-9.3); % Neutrophils 56.2 % (42.2-75.2); Absolute Eosinophils 0.2 10^3/uL (0-0.7); Absolute Lymphocytes 1.3 10^3/uL (1.2-3.4); Absolute Monocytes 0.7 10^3/uL (0.1-0.6); Absolute Neutrophils 2.8 10^3/uL (1.4-6.5); Hematocrit 32.3 % (39.0-52.0); Hemoglobin 10.7 g/dL (13.0-18.0); Mean Corp Hgb Conc. 33.1 g/dL (33.0-37.0); Mean Corpuscular Hgb 33.4 pg (27.0-31.0); Mean Corpuscular Volume 100.9 fL (80.0-94.0); Mean Platelet Volume 9.3 fL (7.4-10.4); Nucleated Red Blood Cells % 0 % (-); Platelet Count 274 10^3/uL (130-400); Red Cell Dist. Width 14.4 % (11.5-14.5)
[2024-07-18 16:21] LABS: ALT (SGPT) 16 U/L (0-50); AST (SGOT) 22 U/L (17-59); Alkaline Phosphatase 184 U/L (38-126); Blood Urea Nitrogen 30 mg/dl (9-20); Calcium 10.3 mg/dl (8.4-10.2); Carbon Dioxide 25 mmol/L (22-30); Chloride 109 mmol/L (98-107); Glucose 91 mg/dl (70-99); Potassium 4.7 mmol/L (3.5-5.1); Sodium 142 mmol/L (135-145); Total Bilirubin 0.6 mg/dl (0.2-1.3); Total Protein 6.6 g/dl (6.3-8.2); eGFR > 60.00
== END ==
LOC: REG 14:51
PROVIDERS: ATTENDING PHYSICIAN Internal Medicine Hematology & Oncology; FAMILY PHYSICIAN Family Medicine
DX: C61 Malignant neoplasm of prostate (principal); C79.51 Secondary malignant neoplasm of bone; N32.0 Bladder-neck obstruction; G89.3 Neoplasm related pain (acute) (chronic); D64.9 Anemia, unspecified; N18.30 Chronic kidney disease, stage 3 unspecified; D63.1 Anemia in chronic kidney disease
CPT/HCPCS: 36415; 80053; 84153; 85025

== ENCOUNTER → 2024-08-18 11:40 | Outpatient (REF) | payer MEDICARE, SELFPAY ==
[2024-08-18 12:17] LABS: % Basophils 0.7 % (0-2); % Eosinophils 4.3 % (0-6); % Immature Granulocytes 0.5 % (0-0.5); % Lymphocytes 25.3 % (20.5-51.1); % Monocytes 13.5 % (1.7-9.3); % Neutrophils 55.7 % (42.2-75.2); Absolute Eosinophils 0.2 10^3/uL (0-0.7); Absolute Lymphocytes 1.1 10^3/uL (1.2-3.4); Absolute Monocytes 0.6 10^3/uL (0.1-0.6); Absolute Neutrophils 2.4 10^3/uL (1.4-6.5); Hematocrit 34.3 % (39.0-52.0); Hemoglobin 11.2 g/dL (13.0-18.0); Mean Corp Hgb Conc. 32.7 g/dL (33.0-37.0); Mean Corpuscular Hgb 33.1 pg (27.0-31.0); Mean Corpuscular Volume 101.5 fL (80.0-94.0); Mean Platelet Volume 9.7 fL (7.4-10.4); Nucleated Red Blood Cells % 0 % (-); Platelet Count 244 10^3/uL (130-400); Red Blood Cell Count 3.38 10^6/uL (4.70-6.10); Red Cell Dist. Width 15.1 % (11.5-14.5); White Blood Cell Count 4.2 10^3/uL (4.8-10.8)
[2024-08-18 13:25] LABS: ALT (SGPT) 15 U/L (0-50); AST (SGOT) 23 U/L (17-59); Albumin 3.8 g/dl (3.5-5.0); Alkaline Phosphatase 207 U/L (38-126); Blood Urea Nitrogen 33 mg/dl (9-20); Calcium 10.6 mg/dl (8.4-10.2); Carbon Dioxide 25 mmol/L (22-30); Chloride 110 mmol/L (98-107); Glucose 97 mg/dl (70-99); Potassium 4.3 mmol/L (3.5-5.1); Sodium 144 mmol/L (135-145); Total Bilirubin 0.4 mg/dl (0.2-1.3); Total Protein 6.5 g/dl (6.3-8.2); eGFR > 60.00
== END ==
LOC: REG 11:40
PROVIDERS: ATTENDING PHYSICIAN Internal Medicine Hematology & Oncology; FAMILY PHYSICIAN Family Medicine
DX: C61 Malignant neoplasm of prostate (principal); C79.51 Secondary malignant neoplasm of bone; N32.0 Bladder-neck obstruction; G89.3 Neoplasm related pain (acute) (chronic); D64.9 Anemia, unspecified; N18.30 Chronic kidney disease, stage 3 unspecified; D63.1 Anemia in chronic kidney disease
CPT/HCPCS: 36415; 80053; 84153; 85025

== ENCOUNTER → 2024-09-12 13:57 | Outpatient (REF) | payer MEDICARE, SELFPAY ==
[2024-09-12 14:52] LABS: % Basophils 0.7 % (0-2); % Eosinophils 4.1 % (0-6); % Immature Granulocytes 0.2 % (0-0.5); % Monocytes 14.2 % (1.7-9.3); % Neutrophils 58.8 % (42.2-75.2); Absolute Eosinophils 0.2 10^3/uL (0-0.7); Absolute Monocytes 0.7 10^3/uL (0.1-0.6); Absolute Neutrophils 2.7 10^3/uL (1.4-6.5); Hematocrit 34.6 % (39.0-52.0); Hemoglobin 11.5 g/dL (13.0-18.0); Mean Corp Hgb Conc. 33.2 g/dL (33.0-37.0); Mean Corpuscular Hgb 33.6 pg (27.0-31.0); Mean Corpuscular Volume 101.2 fL (80.0-94.0); Mean Platelet Volume 9.7 fL (7.4-10.4); Nucleated Red Blood Cells % 0 % (-); Platelet Count 256 10^3/uL (130-400); Red Blood Cell Count 3.42 10^6/uL (4.70-6.10); Red Cell Dist. Width 14.7 % (11.5-14.5); White Blood Cell Count 4.6 10^3/uL (4.8-10.8)
[2024-09-12 15:21] LABS: ALT (SGPT) 17 U/L (0-50); AST (SGOT) 25 U/L (17-59); Albumin 4.3 g/dl (3.5-5.0); Alkaline Phosphatase 223 U/L (38-126); Blood Urea Nitrogen 25 mg/dl (9-20); Calcium 10.6 mg/dl (8.4-10.2); Carbon Dioxide 28 mmol/L (22-30); Chloride 109 mmol/L (98-107); Glucose 79 mg/dl (70-99); Iron 106 ug/dl (49-181); Potassium 4.4 mmol/L (3.5-5.1); Sodium 142 mmol/L (135-145); Total Bilirubin 0.5 mg/dl (0.2-1.3); Total Protein 7.2 g/dl (6.3-8.2); eGFR > 60.00
[2024-09-12 15:31] LABS: Percent Saturation 36 % (20-50); Total Iron Binding Capacity 292 ug/dl (261-462)
== END ==
LOC: REG 13:57
PROVIDERS: ATTENDING PHYSICIAN Internal Medicine Hematology & Oncology; FAMILY PHYSICIAN Family Medicine
DX: C61 Malignant neoplasm of prostate (principal); C79.51 Secondary malignant neoplasm of bone; N32.0 Bladder-neck obstruction; G89.3 Neoplasm related pain (acute) (chronic); D64.9 Anemia, unspecified; N18.30 Chronic kidney disease, stage 3 unspecified; D63.1 Anemia in chronic kidney disease
CPT/HCPCS: 36415; 80053; 82728; 83540; 83550; 84153; 85025

== ENCOUNTER → 2024-10-21 12:41 | Outpatient (REF) | payer MEDICARE, SELFPAY ==
[2024-10-21 13:56] LABS: Hematocrit 33.1 % (39.0-52.0); Hemoglobin 11.2 g/dL (13.0-18.0); Mean Corp Hgb Conc. 33.8 g/dL (33.0-37.0); Mean Corpuscular Volume 98.8 fL (80.0-94.0); Nucleated Red Blood Cells % 0 % (-); Platelet Count 275 10^3/uL (130-400); Red Cell Dist. Width 15.2 % (11.5-14.5)
[2024-10-21 14:27] LABS: ALT (SGPT) 17 U/L (0-50); AST (SGOT) 22 U/L (17-59); Albumin 4.0 g/dl (3.5-5.0); Alkaline Phosphatase 217 U/L (38-126); Blood Urea Nitrogen 31 mg/dl (9-20); Calcium 10.7 mg/dl (8.4-10.2); Carbon Dioxide 23 mmol/L (22-30); Chloride 112 mmol/L (98-107); Glucose 90 mg/dl (70-99); Iron 116 ug/dl (49-181); Potassium 4.3 mmol/L (3.5-5.1); Sodium 141 mmol/L (135-145); Total Protein 6.8 g/dl (6.3-8.2); eGFR > 60.00
[2024-10-21 14:36] LABS: Total Iron Binding Capacity 291 ug/dl (261-462)
[2024-10-21 15:03] LABS: Ferritin 815.0 ng/ml (17.9-464.0)
[2024-10-21 16:30] LABS: PSA, Total - Diagnostic 93.10 ng/ml (0.0-4.0)
== END ==
LOC: REG 12:41
PROVIDERS: ATTENDING PHYSICIAN Internal Medicine Hematology & Oncology; FAMILY PHYSICIAN Family Medicine
DX: C61 Malignant neoplasm of prostate (principal); C79.51 Secondary malignant neoplasm of bone; N32.0 Bladder-neck obstruction; G89.3 Neoplasm related pain (acute) (chronic); D64.9 Anemia, unspecified; N18.30 Chronic kidney disease, stage 3 unspecified; D63.1 Anemia in chronic kidney disease
CPT/HCPCS: 36415; 80053; 82728; 83540; 83550; 84153; 85025

== ENCOUNTER → 2024-11-10 10:15 | Outpatient (REF) | payer MEDICARE, SELFPAY ==
[2024-11-10 10:50] LABS: Hematocrit 31.7 % (39.0-52.0); Hemoglobin 10.6 g/dL (13.0-18.0); Mean Corp Hgb Conc. 33.4 g/dL (33.0-37.0); Mean Corpuscular Volume 99.4 fL (80.0-94.0); Nucleated Red Blood Cells % 0 % (-); Platelet Count 255 10^3/uL (130-400); Red Cell Dist. Width 14.6 % (11.5-14.5)
[2024-11-10 11:18] LABS: ALT (SGPT) 14 U/L (0-50); AST (SGOT) 21 U/L (17-59); Albumin 3.9 g/dl (3.5-5.0); Alkaline Phosphatase 221 U/L (38-126); Blood Urea Nitrogen 33 mg/dl (9-20); Calcium 10.7 mg/dl (8.4-10.2); Carbon Dioxide 29 mmol/L (22-30); Chloride 108 mmol/L (98-107); Glucose 114 mg/dl (70-99); Iron 86 ug/dl (49-181); Potassium 4.4 mmol/L (3.5-5.1); Sodium 139 mmol/L (135-145); Total Protein 6.6 g/dl (6.3-8.2); eGFR > 60.00
[2024-11-10 11:27] LABS: Total Iron Binding Capacity 254 ug/dl (261-462)
[2024-11-10 11:53] LABS: Ferritin 748.0 ng/ml (17.9-464.0)
[2024-11-10 12:30] LABS: PSA, Total - Diagnostic 113.00 ng/ml (0.0-4.0)
== END ==
LOC: REG 10:15
PROVIDERS: ATTENDING PHYSICIAN Internal Medicine Hematology & Oncology; FAMILY PHYSICIAN Family Medicine
DX: C61 Malignant neoplasm of prostate (principal); C79.51 Secondary malignant neoplasm of bone; N32.0 Bladder-neck obstruction; G89.3 Neoplasm related pain (acute) (chronic); D64.9 Anemia, unspecified; N18.30 Chronic kidney disease, stage 3 unspecified; D63.1 Anemia in chronic kidney disease
CPT/HCPCS: 36415; 80053; 82728; 83540; 83550; 84153; 85025

== ENCOUNTER 2024-11-18 09:01 | Emergency (ER) | payer MEDICARE, SELFPAY ==
[2024-11-18 09:04] VITALS: BP 151/87
[2024-11-18 09:10] VITALS: BP 151/87
--- NOTE | 2024-11-18 09:26 | ED.GENMED ---
History of Present Illness
<Gisselle Fisher PA-C - Last Filed: 11/18/24 22:19>
General
Chief Complaint: Urinary Symptoms
Source: patient
Exam Limitations: dementia
Time Seen by Provider: 11/18/24 09:10
Nursing documentation reviewed up to this point in time: agreed with
History of Present Illness
History of Present Illness:
Patient is an 84-year-old male who presents to the emergency department with dysuria since last night. Patient reports intermittent waves of sharp pain at the tip of his penis. This occurred all throughout last night into this morning prompting
visit to the emergency department.
Patient denies any fever, chills, abdominal pain, nausea or vomiting. He has not had any obvious hematuria. He does report some lower back pain, however not clearly on one side. He denies any diarrhea or constipation.
Patient has indwelling Lemon catheter and follows with Dr. Price.
Past History
<Gisselle Fisher PA-C - Last Filed: 11/18/24 22:19>
Past History
ED Past Medical History: Cancer (Prostate cancer with bony metastasis), HTN and Hypercholesterolemia
Social History
Tobacco: Non-smoker
Alcohol: Occasional
Drug: None
Personal:
Living: with family
Review of Systems
<Gisselle Fisher PA-C - Last Filed: 11/18/24 22:19>
Review of Systems
Allergies reviewed?: Yes
All Other Systems: ROS reviewed and negative except as documented in HPI and ROS
Phy Exam
<Gisselle Fisher PA-C - Last Filed: 11/18/24 22:19>
Physical Exam
Physical Exam:
Vitals: Hypertensive, otherwise vital signs stable. Afebrile
General: Patient is well appearing, no acute distress. Nontoxic appearing
Skin: Warm and dry, no rashes or lesions
Head: Normocephalic, atraumatic
Eyes: Sclera nonicteric.
Throat: Protecting airway
Neck: Normal ROM
Cardiac: Regular rate and rhythm, no murmurs.
Pulm: Normal respiratory effort, no wheezes, rales, rhonchi heard on exam
Abdomen: Abdomen soft and nontender. No CVA tenderness
: Lemon catheter removed by my assessment. No bleeding or obvious abnormality to penis
Extremities: No evidence of cyanosis or edema.
Neuro: AAOx2 to person and place, not time. No focal deficits
Psychiatric: Normal affect.
Course
<Gisselle Fisher PA-C - Last Filed: 11/18/24 22:19>
Orders/Labs/Results
Orders:
Orders
11/18/24 09:19
Lidocaine 2% [Lidocaine Uro-Jet 2%] 1 syringe .ROUTE .[facility] ONE
11/18/24 09:26
Lemon Placement- Treatment ONCE
Reason for insertion: Chronic Lemon on Admit
11/18/24 09:27
Abdomen/Pelvis wo Contrast CT [CT Abd/pelvis Wo Iv Cont] Urgent
Comment: chronic indwelling lemon
Reason For Exam: Intermittent low back pain/ dysuria
11/18/24 09:53
Comprehensive Metabolic Panel Urgent
Urinalysis Reflex To Culture Urgent
Date Specimen was Collected: 11/18/24
Time Specimen was Collected: 09:40
Urine Microscopic Reflex Cult Urgent
Urine Culture Urgent
PARVIZ Source: U
Specimen Description:
Date Specimen was Collected: 11/18/24
Time Specimen was Collected: 09:40
11/18/24 11:35
CefTRIAXone [Rocephin] 1,000 mg IV NOW STA
11/18/24 12:07
Complete Blood Count/With Diff Urgent
11/18/24 13:24
Phenazopyridine HCl [Pyridium] 200 mg PO NOW STA
Abnormal Lab Results
11/18/24 11/18/24
09:53 12:07
RBC 3.28 L 10^6/uL
(4.70-6.10)
Hgb 11.0 L g/dL
(13.0-18.0)
Hct 31.8 L %
(39.0-52.0)
MCV 97.0 H fL
(80.0-94.0)
MCH 33.5 H pg
(27.0-31.0)
RDW 15.0 H %
(11.5-14.5)
Absolute Lymphs (auto) 1.1 L 10^3/uL
(1.2-3.4)
Absolute Monos (auto) 0.8 H 10^3/uL
(0.1-0.6)
Neutrophils % 75.3 H %
(42.2-75.2)
Lymphocytes % 13.4 L %
(20.5-51.1)
Monocytes % 10.0 H %
(1.7-9.3)
Chloride 111 H mmol/L
(98-107)
BUN 39 H mg/dl
(9-20)
Glucose 112 H mg/dl
(70-99)
Calcium 11.4 H mg/dl
(8.4-10.2)
Alkaline Phosphatase 256 H U/L
(38-126)
Ur Occult Blood Reflex 4+ A
(Negative)
Urine Nitrite (Reflex) Positive A
(Negative)
Leukocyte Esterase Rfl 3+ A
(Negative)
Urine WBC (Reflex) >100 A /HPF
(0-5)
Urine Bacteria (Reflex) Many A
(Negative)
Urine Albumin (Reflex) 2+ A
(Neg - Trace)
11/18/24 12:07
11/18/24 09:53
Vital Signs
Initial and Last Documented VS:
Initial Vital Signs
Temp Pulse Resp BP Pulse Ox
99.3 F 88 20 151/87 99
11/18/24 09:04 11/18/24 09:04 11/18/24 09:04 11/18/24 09:04 11/18/24 09:04
Last Documented Vital Signs
Temp Pulse Resp BP Pulse Ox
97.9 F 77 22 135/68 100
11/18/24 14:18 11/18/24 10:00 11/18/24 10:00 11/18/24 13:00 11/18/24 10:00
<Jalen Washington, DO - Last Filed: 11/18/24 13:24>
Orders/Labs/Results
Orders:
Orders
11/18/24 09:19
Lidocaine 2% [Lidocaine Uro-Jet 2%] 1 syringe .ROUTE .[facility] ONE
11/18/24 09:26
Lemon Placement- Treatment ONCE
Reason for insertion: Chronic Lemon on Admit
11/18/24 09:27
Abdomen/Pelvis wo Contrast CT [CT Abd/pelvis Wo Iv Cont] Urgent
Comment: chronic indwelling lemon
Reason For Exam: Intermittent low back pain/ dysuria
11/18/24 09:53
Comprehensive Metabolic Panel Urgent
Urinalysis Reflex To Culture Urgent
Date Specimen was Collected: 11/18/24
Time Specimen was Collected: 09:40
Urine Microscopic Reflex Cult Urgent
Urine Culture Urgent
PARVIZ Source: U
Specimen Description:
Date Specimen was Collected: 11/18/24
Time Specimen was Collected: 09:40
11/18/24 11:35
CefTRIAXone [Rocephin] 1,000 mg IV NOW STA
11/18/24 12:07
Complete Blood Count/With Diff Urgent
11/18/24 13:24
Phenazopyridine HCl [Pyridium] 200 mg PO NOW STA
Abnormal Lab Results
11/18/24 11/18/24
09:53 12:07
RBC 3.28 L 10^6/uL
(4.70-6.10)
Hgb 11.0 L g/dL
(13.0-18.0)
Hct 31.8 L %
(39.0-52.0)
MCV 97.0 H fL
(80.0-94.0)
MCH 33.5 H pg
(27.0-31.0)
RDW 15.0 H %
(11.5-14.5)
Absolute Lymphs (auto) 1.1 L 10^3/uL
(1.2-3.4)
Absolute Monos (auto) 0.8 H 10^3/uL
(0.1-0.6)
Neutrophils % 75.3 H %
(42.2-75.2)
Lymphocytes % 13.4 L %
(20.5-51.1)
Monocytes % 10.0 H %
(1.7-9.3)
Chloride 111 H mmol/L
(98-107)
BUN 39 H mg/dl
(9-20)
Glucose 112 H mg/dl
(70-99)
Calcium 11.4 H mg/dl
(8.4-10.2)
Alkaline Phosphatase 256 H U/L
(38-126)
Ur Occult Blood Reflex 4+ A
(Negative)
Urine Nitrite (Reflex) Positive A
(Negative)
Leukocyte Esterase Rfl 3+ A
(Negative)
Urine WBC (Reflex) >100 A /HPF
(0-5)
Urine Bacteria (Reflex) Many A
(Negative)
Urine Albumin (Reflex) 2+ A
(Neg - Trace)
11/18/24 12:07
11/18/24 09:53
Vital Signs
Initial and Last Documented VS:
Initial Vital Signs
Temp Pulse Resp BP Pulse Ox
99.3 F 88 20 151/87 99
11/18/24 09:04 11/18/24 09:04 11/18/24 09:04 11/18/24 09:04 11/18/24 09:04
Last Documented Vital Signs
Temp Pulse Resp BP Pulse Ox
97.9 F 77 22 135/68 100
11/18/24 14:18 11/18/24 10:00 11/18/24 10:00 11/18/24 13:00 11/18/24 10:00
<Gisselle Fisher PA-C - Last Filed: 11/18/24 22:19>
MDM/Problems Addressed
Differential Diagnosis Includes:
Not limited to: Cystitis, pyelonephritis, renal colic, Lemon catheter complication, etc.
MDM/Problems Addressed:
84-year-old male with chronic indwelling lemon catheter presenting with one day of dysuria. He also reports leaking around catheter site. No fevers, abdominal pain, or vomiting. Vitals and exam as above. Patient non-toxic appearing, in no apparent
distress. Abdomen soft and nontender. Lemon catheter has been removed and changed prior to my assessment which is draining urine. He is neurologically intact without any focal deficits.
With chronic indwelling Lemon � differential includes obstructed Lemon catheter, cystitis, pyelonephritis, renal colic, etc.
ED plan: check labs, urine. Given possible hx of back pain � will obtain CT abdomen/pelvis to rule out obstructing stone.
Update: labs reviewed. No clinically significant abnormalities. Urine appears infected. CT scan shows no evidence of obstructing calculate however does note mild hydronephrosis indicating possible ascending UTI.
Patient resting comfortably with improvement in dysuria following lemon exchange. Suspect likely catheter malfunction as well as UTI. Patient non-toxic appearing, afebrile, tolerating oral intake. Discussed admission for IV anabiotic however patient
prefers discharge home. He will monitor symptoms closely at home. Will give dose of IV antibiotics and discharge home on oral antibiotics.
Patient comfortable with plan. Strict return precautions discussed. He will follow up with his urologist, Dr. Price.
Chronic conditions affecting care:
Dementia, hypertension, indwelling Lemon catheter
Acute Exacerbation and/or Progression of Chronic Illness:
Acutely hypertensive
<Gisselle Fisher PA-C - Last Filed: 11/18/24 22:19>
*Pulse Oximetry
SaO2: 99
Oxygen Mode of Delivery: Room air
Patient hypoxic: no
*EKG
Interpreted by ED Provider?: NA
*Cardiopulmonary Technologist Interpretation
Rate: Cardiopulmonary Technologist- N/A
*Critical Care Note
Total Time (30-74mins, 75-104mins- exclusive of procedures): Not Applicable
Data Reviewed
Review of Other/Old Records Reveals: Labs (UA from 02/08/2024-which grew Klebsiella pneumonia resistant to ampicillin)
ED Attending Note
<Gisselle Fisher PA-C - Last Filed: 11/18/24 22:19>
-
Portions of this chart may have been created with voice recognition software.� Occasional wrong word or��sound alike� substitutions may have occurred due to the inherent limitations of voice recognition software.
<Jalen Washington DO - Last Filed: 11/18/24 13:24>
ED Attending Note
Patient seen and examined by attending physician: Yes
I performed the substantive portion of visit, reviewed & personally made and approve the management plan that is documented in note by myself or RAVIN.: Yes
ED Attending Note:
Seen with PA examined independently nontoxic elderly male UTI symptoms Lemon was changed CAT scan ordered antibiotics ordered
Discharge Plan
Departure
Patient Disposition: Home (Routine Discharge)
Date of Disposition: 11/18/24
Time of Disposition: 13:24
Patient with high blood pressure during this ER visit?: Yes
Discharge Problem:
Complicated UTI (urinary tract infection)
Instructions: Urinary Tract Infection, Adult (DC), BLOOD PRESSURE
Prescriptions:
New
amoxicillin-pot clavulanate 875-125 mg tablet
1 tab PO BID Qty: 14 0RF
phenazopyridine [Pyridium] 200 mg tablet
200 mg PO TID Qty: 6 0RF
No Action
cyanocobalamin (vitamin B-12) 1,000 mcg Tablet
1,000 mcg PO DAILY
ascorbic acid (vitamin C) [Vitamin C] 500 mg Tablet
500 mg PO DAILY
tamsulosin [Flomax] 0.4 mg Capsule
0.4 mg PO BID
finasteride 5 mg Tablet
5 mg PO QPM
cholecalciferol (vitamin D3) [Vitamin D3] 25 mcg (1,000 unit) Tablet
25 mcg PO DAILY
Xtandi 40 mg Tablet
160 mg PO DAILY Qty: 0
Patient Comments:
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
atorvastatin 10 mg Tablet
10 mg PO QPM
donepezil 10 mg Tablet
10 mg PO HS
calcium carbonate [Calcium 600] 600 mg calcium (1,500 mg) Tablet
600 mg PO TID
coenzyme Q10 [CoQ-10] 100 mg Capsule
100 mg PO QPM
Visbiome 112.5 billion cell Capsule
1 cap PO DAILY Qty: 0
Xgeva 120 mg/1.7 mL (70 mg/mL) Solution
120 mg SC Q4W
Lupron Depot (6 Month) 45 mg Syringe Kit
45 mg IM [id number] Qty: 0
AZO D-Mannose 500 mg Capsule
500 mg PO QPM
benzonatate 100 mg Capsule
100 mg PO TIDPRN PRN (Reason: COUGH)
Referrals:
Hiren Price MD [Active, Urology] - Follow up in 1 week
UNKNOWN - PT NOT,INTERVIEWE [Family Provider]
Activity Restrictions/Additional Instructions:
RETURN TO THE EMERGENCY DEPARTMENT WITH ANY FEVER, CHILLS, NAUSEA/VOMITING, LACK OF URINE OUTPUT IN LEMON, SEVERE ABDOMINAL OR BACK PAIN, WORSENING IN CURRENT SYMPTOMS, OR ANY OTHER CONCERNS
- As discussed�your urine shows evidence of infection today 1 the emergency department. Your Lemon catheter was changed. You were given a dose of IV antibiotics in the emergency department and a prescription for oral Augmentin has been sent to
your pharmacy which you can take twice a day for the next week.
- A prescription for pyridium has been sent to your pharmacy which you can take 3 times a day for the next few days as needed for urinary discomfort.
- It is important stay well-hydrated.
- Please follow-up with your urologist for further evaluation/management to ensure that your symptoms are improving
Monitor your symptoms closely and return to the emergency department with any new/new symptoms or any signs of more
Interventions
Interventions:
*Risk Screen - Suicide Last Done: 11/18/24 14:00
*General Assessment Last Done: 11/18/24 14:00
*Neglect/Abuse Screening Last Done: 11/18/24 14:00
*ED- Fall Risk Assessment Last Done: 11/18/24 14:00
*Nursing Disposition Last Done: 11/18/24 14:18
ED-Male Genitourinary Assessment Last Done: 11/18/24 09:15
Discharge Date and Time
Discharge Date/Time: 11/18/24 14:18
Print Language: GEORGIAN
[2024-11-18 10:00] VITALS: BP 149/81; BP 149/87
[2024-11-18 10:09] LABS: Urine Character Clear (Clear)
[2024-11-18 10:17] LABS: ALT (SGPT) 18 U/L (0-50); AST (SGOT) 25 U/L (17-59); Albumin 4.3 g/dl (3.5-5.0); Alkaline Phosphatase 256 U/L (38-126); Blood Urea Nitrogen 39 mg/dl (9-20); Calcium 11.4 mg/dl (8.4-10.2); Carbon Dioxide 22 mmol/L (22-30); Chloride 111 mmol/L (98-107); Estimated Creatinine Clearance 42 ml/min; Glucose 112 mg/dl (70-99); Potassium 4.1 mmol/L (3.5-5.1); Sodium 142 mmol/L (135-145); Total Protein 7.2 g/dl (6.3-8.2); eGFR 59.26
[2024-11-18 10:21] LABS: Urine Red Blood Cell 0-2 /HPF (0-2); Urine Squamous Cell 0-2 /LPF (Few); Urine White Cell >100 /HPF (0-5)
[2024-11-18] MEDS: ROCEPHIN 1000 MG IV (12:12)
[2024-11-18 12:36] VITALS: BP 130/80
[2024-11-18 12:55] LABS: Hematocrit 31.8 % (39.0-52.0); Hemoglobin 11.0 g/dL (13.0-18.0); Mean Corp Hgb Conc. 34.6 g/dL (33.0-37.0); Mean Corpuscular Volume 97.0 fL (80.0-94.0); Nucleated Red Blood Cells % 0 % (-); Platelet Count 243 10^3/uL (130-400); Red Cell Dist. Width 15.0 % (11.5-14.5)
[2024-11-18 13:00] VITALS: BP 135/68
== END 2024-11-18 14:18 | disposition home or self-care (01) ==
LOC: EMR 09:01
PROVIDERS: Physician Assistant; EMERGENCY PHYSICIAN Emergency Medicine
DX: N39.0 Urinary tract infection, site not specified (principal); C61 Malignant neoplasm of prostate; C79.51 Secondary malignant neoplasm of bone; I10 Essential (primary) hypertension; E78.00 Pure hypercholesterolemia, unspecified; F03.90 Unspecified dementia, unspecified severity, without behavioral disturbance, psychotic disturbance, mood disturbance, and anxiety
CPT/HCPCS: 51702; 96374; 99284; 74176; 80053; 81003; 81015; 85025; 87077; 87086; 87186

== ENCOUNTER → 2024-12-08 10:17 | Outpatient (REF) | payer MEDICARE, SELFPAY ==
[2024-12-08 10:53] LABS: Hematocrit 28.5 % (39.0-52.0); Hemoglobin 9.3 g/dL (13.0-18.0); Mean Corp Hgb Conc. 32.6 g/dL (33.0-37.0); Mean Corpuscular Volume 100.7 fL (80.0-94.0); Nucleated Red Blood Cells % 0 % (-); Platelet Count 212 10^3/uL (130-400); Red Cell Dist. Width 14.8 % (11.5-14.5)
[2024-12-08 11:18] LABS: ALT (SGPT) 15 U/L (0-50); AST (SGOT) 24 U/L (17-59); Albumin 3.5 g/dl (3.5-5.0); Alkaline Phosphatase 236 U/L (38-126); Blood Urea Nitrogen 26 mg/dl (9-20); Calcium 10.7 mg/dl (8.4-10.2); Carbon Dioxide 28 mmol/L (22-30); Chloride 106 mmol/L (98-107); Glucose 132 mg/dl (70-99); Iron 80 ug/dl (49-181); Potassium 3.7 mmol/L (3.5-5.1); Sodium 139 mmol/L (135-145); Total Protein 6.1 g/dl (6.3-8.2); eGFR > 60.00
[2024-12-08 11:28] LABS: Total Iron Binding Capacity 237 ug/dl (261-462)
[2024-12-08 11:51] LABS: Ferritin 982.0 ng/ml (17.9-464.0)
[2024-12-08 12:28] LABS: PSA, Total - Diagnostic 164.00 ng/ml (0.0-4.0)
== END ==
LOC: REG 10:17
PROVIDERS: ATTENDING PHYSICIAN Internal Medicine Hematology & Oncology
DX: C61 Malignant neoplasm of prostate (principal); C79.51 Secondary malignant neoplasm of bone; N32.0 Bladder-neck obstruction; G89.3 Neoplasm related pain (acute) (chronic); D64.9 Anemia, unspecified; N18.30 Chronic kidney disease, stage 3 unspecified; D63.1 Anemia in chronic kidney disease
CPT/HCPCS: 36415; 80053; 82728; 83540; 83550; 84153; 85025

== ENCOUNTER → 2024-12-19 10:01 | Outpatient (REF) | payer MEDICARE, SELFPAY | LOC: RAD 10:01 | PROVIDERS: ATTENDING PHYSICIAN Internal Medicine Hematology & Oncology; FAMILY PHYSICIAN Family Medicine | DX: C61 Malignant neoplasm of prostate (principal); C79.51 Secondary malignant neoplasm of bone; N32.0 Bladder-neck obstruction; G89.3 Neoplasm related pain (acute) (chronic); D64.9 Anemia, unspecified; N18.30 Chronic kidney disease, stage 3 unspecified; D63.1 Anemia in chronic kidney disease | CPT/HCPCS: 78306; A9503 ==

== ENCOUNTER 2024-12-26 13:49 | Inpatient (IN) | payer MEDICARE, SELFPAY ==
[2024-12-26] VITALS (10 sets, daily range): BP systolic 133–160; BP diastolic 61–81
--- NOTE | 2024-12-26 09:52 | ED.GENMED ---
History of Present Illness
General
Chief Complaint: Abdominal Symptoms
Source: patient
Exam Limitations: none
Time Seen by Provider: 12/26/24 09:40
History of Present Illness
History of Present Illness:
See MDM
Past History
Past History
ED Past Medical History: Cancer (Prostate cancer with bony metastasis), HTN and Hypercholesterolemia
Social History
Tobacco: Non-smoker
Alcohol: Occasional
Drug: None
Personal:
Living: with family
Phy Exam
Physical Exam
Physical Exam:
See MDM
Course
Orders/Labs/Results
Orders:
Orders
12/26/24 09:59
Complete Blood Count/With Diff Urgent
Comprehensive Metabolic Panel Urgent
12/26/24 11:27
Electrocardiogram (*1) Urgent
Reason for Study: Fatigue / Weakness
EKG- Treatment ONCE
0.9% Sodium Chloride 1000 ml [Nss] 1,000 ml IV BOLUS
12/26/24 11:32
Potassium Chloride [KCl] 40 meq 0.9% Sodium Chloride 250 ml [Nss] 250 ml IV NOW
Abnormal Lab Results
12/26/24
09:59
RBC 2.84 L 10^6/uL
(4.70-6.10)
Hgb 9.2 L g/dL
(13.0-18.0)
Hct 27.3 L %
(39.0-52.0)
MCV 96.1 H fL
(80.0-94.0)
MCH 32.4 H pg
(27.0-31.0)
RDW 15.2 H %
(11.5-14.5)
Absolute Lymphs (auto) 0.9 L 10^3/uL
(1.2-3.4)
Lymphocytes % 14.4 L %
(20.5-51.1)
Monocytes % 10.6 H %
(1.7-9.3)
Potassium 2.6 L* mmol/L
(3.5-5.1)
BUN 28 H mg/dl
(9-20)
Creatinine 1.4 H mg/dL
(0.7-1.3)
Glucose 109 H mg/dl
(70-99)
Calcium 11.7 H mg/dl
(8.4-10.2)
Alkaline Phosphatase 295 H U/L
(38-126)
12/26/24 09:59
12/26/24 09:59
Vital Signs
Initial and Last Documented VS:
Initial Vital Signs
Temp Pulse Resp BP Pulse Ox
97.4 F 73 18 143/81 98
12/26/24 10:07 12/26/24 10:07 12/26/24 10:07 12/26/24 10:07 12/26/24 10:07
Last Documented Vital Signs
Temp Pulse Resp BP Pulse Ox
97.4 F 65 16 140/62 94
12/26/24 10:07 12/26/24 11:30 12/26/24 11:30 12/26/24 11:00 12/26/24 11:30
MDM/Problems Addressed
Differential Diagnosis Includes:
Note:
CHIEF COMPLAINT(S)
Diarrhea
HISTORY OF PRESENT ILLNESS
The patient is an 84-year-old male who presents with complaints of diarrhea. The onset of diarrhea was today, and he reports having experienced two episodes. The patient notes his belly feels cold, and he requests a blanket. He denies any abdominal
pain at the moment. There is no reported history of fever. Patient denies sick contacts. On assessment, patient is extremely well-appearing and nontoxic
ADDITIONAL HISTORY OBTAINED FROM SOURCES OTHER THAN THE PATIENT
Per the caregiver present with the patient, who assists the who is mainly responsible for care, confirmed the symptoms of diarrhea today.
CHRONIC MEDICAL CONDITIONS SIGNIFICANTLY AFFECTING CARE
Dementia
Congestive Heart Failure (CHF)
PHYSICAL EXAM
General: Alert, no acute distress.
Skin: Warm, dry.
Head: Normocephalic, atraumatic
Neck: Appears supple, trachea midline.
Eyes, Ears, Nose, Mouth, and Throat: Oral mucosa moist.
Cardiovascular: No signs of cyanosis
Respiratory: Respirations are non-labored.
Abdomen: Non-distended. Soft and nontender
Musculoskeletal: No deformities
Neurological: No focal neurological deficit observed.
Psychiatric: Cooperative, appropriate mood and affect.
PLAN
Monitor the patient for additional symptoms or changes in condition.
Consider further evaluation for causes of acute diarrhea if symptoms persist or worsen.
If patient can provide stool sample, will send for stool culture and C. difficile.
DIFFERENTIAL DIAGNOSIS
The Differential Diagnosis includes, in no particular order and is not limited to:
1. Gastroenteritis
2. Medication side effect
3. Food poisoning
4. Irritable bowel syndrome
5. Inflammatory bowel disease
6. Clostridioides difficile infection
7. Small intestinal bacterial overgrowth
8. Pancreatic insufficiency
9. Thyroid dysfunction
10. Lactose intolerance
SUMMARY OF ENCOUNTER
The patient, an 84-year-old male, was seen in the emergency department with diarrhea that started today, accompanied by a sense of coldness in his belly. A rectal exam was performed, showing brown stool that was guaiac negative. His hemoglobin level
is mildly low, but consistent with his baseline. He was found to have hypokalemia with a potassium level of 2.6. This could be due to dietary factors or diarrhea-associated loss. His creatinine level is mildly elevated, suggesting potential acute
kidney injury. Due to these findings, along with his age, complaint of general weakness, and chronic conditions of dementia and congestive heart failure, the decision was made to admit the patient for further evaluation and management.
ASSESSMENT
The patient presents with acute hypokalemia and mild elevation in creatinine, suggesting potential acute kidney injury. The diarrhea onset today may be contributing to electrolyte imbalance and renal function changes. Admission is warranted to
manage these issues, considering the patients age, presenting symptoms, and chronic conditions.
EMERGENCY TREATMENTS ADMINISTERED
The patient received IV potassium for hypokalemia and IV fluids due to concerns for acute kidney injury.
PLAN
Admit the patient for further evaluation and management of hypokalemia and potential acute kidney injury, and to monitor any progression of symptoms related to diarrhea.
MEDICAL DECISION MAKING
1. Number and Complexity of Problems Addressed: Chronic conditions affecting care: Dementia, Congestive Heart Failure (CHF)
2. Differential Diagnosis: Gastroenteritis, Medication side effect, Food poisoning, Irritable bowel syndrome, Inflammatory bowel disease, Clostridioides difficile infection, Small intestinal bacterial overgrowth, Pancreatic insufficiency, Thyroid
dysfunction, Lactose intolerance
DATA
Category 1
- Clinical information was obtained from an independent historian: caregiver accompanying the patient confirmed symptoms of diarrhea today.
- Tests and documents: My independent review of the patient�s CBC indicates a mildly low hemoglobin level, consistent with baseline levels.
- Labs considered: My independent review of the BMP shows hypokalemia at 2.6.
Category 2
- Independent interpretation: None
Category 3
- Discussion of management with other healthcare provider: None
DIAGNOSIS
- Hypokalemia (ICD-10: E87.6)
- Acute kidney injury (ICD-10: N17.9)
- Diarrhea, unspecified (ICD-10: R19.7)
*Pulse Oximetry
Patient hypoxic: no
*EKG
Interpreted by ED Provider?: Yes
Interpretation: abnormal (Normal sinus rhythm at 67 bpm, normal axis, nonspecific ST abnormality, no STEMI)
*Critical Care Note
Total Time (30-74mins, 75-104mins- exclusive of procedures): Not Applicable
ED Attending Note
-
Portions of this chart may have been created with voice recognition software.� Occasional wrong word or��sound alike� substitutions may have occurred due to the inherent limitations of voice recognition software.
Discharge Plan
Departure
Patient Disposition: Admit
Date of Disposition: 12/26/24
Time of Disposition: 11:28
Admit to: Telemetry
Presentation/result/management discussed w/ accepting MD/DO: Hospitalist
Discharge Problem:
JV (acute kidney injury), Hypokalemia
Prescriptions:
No Action
cyanocobalamin (vitamin B-12) 1,000 mcg Tablet
1,000 mcg PO DAILY
ascorbic acid (vitamin C) [Vitamin C] 500 mg Tablet
500 mg PO DAILY
tamsulosin [Flomax] 0.4 mg Capsule
0.4 mg PO BID
finasteride 5 mg Tablet
5 mg PO QPM
cholecalciferol (vitamin D3) [Vitamin D3] 25 mcg (1,000 unit) Tablet
25 mcg PO DAILY
Xtandi 40 mg Tablet
160 mg PO DAILY Qty: 0
atorvastatin 10 mg Tablet
10 mg PO QPM
donepezil 10 mg Tablet
10 mg PO HS
calcium carbonate [Calcium 600] 600 mg calcium (1,500 mg) Tablet
600 mg PO TID
coenzyme Q10 [CoQ-10] 100 mg Capsule
100 mg PO QPM
Visbiome 112.5 billion cell Capsule
1 cap PO DAILY Qty: 0
AZO D-Mannose 500 mg Capsule
500 mg PO QPM
Referrals:
Ivory Stevenson MD [Family Provider, Oncology]
Interventions
Interventions:
*Risk Screen - Suicide Last Done: 12/26/24 09:36
*General Assessment Last Done: 12/26/24 09:36
*Neglect/Abuse Screening Last Done: 12/26/24 09:36
*ED- Fall Risk Assessment Last Done: 12/26/24 09:36
IO-Bsmsyr-Cshjzfgkvc Assessment Last Done: 12/26/24 09:36
Discharge Date and Time
Print Language: PERSIAN
[2024-12-26 10:32] LABS: Hematocrit 27.3 % (39.0-52.0); Hemoglobin 9.2 g/dL (13.0-18.0); Mean Corp Hgb Conc. 33.7 g/dL (33.0-37.0); Mean Corpuscular Volume 96.1 fL (80.0-94.0); Nucleated Red Blood Cells % 0 % (-); Platelet Count 157 10^3/uL (130-400); Red Cell Dist. Width 15.2 % (11.5-14.5)
[2024-12-26 11:10] LABS: ALT (SGPT) 15 U/L (0-50); AST (SGOT) 25 U/L (17-59); Albumin 3.8 g/dl (3.5-5.0); Alkaline Phosphatase 295 U/L (38-126); Blood Urea Nitrogen 28 mg/dl (9-20); Calcium 11.7 mg/dl (8.4-10.2); Carbon Dioxide 28 mmol/L (22-30); Chloride 105 mmol/L (98-107); Estimated Creatinine Clearance 39 ml/min; Glucose 109 mg/dl (70-99); Potassium 2.6 mmol/L (3.5-5.1); Sodium 141 mmol/L (135-145); Total Protein 6.4 g/dl (6.3-8.2); eGFR 49.25
[2024-12-26] MEDS: NSS 1000 IV (12:39)
[2024-12-26] MEDS: KCL 270 MEQ IV (12:39)
[2024-12-26 13:13] LABS: Magnesium 1.5 mg/dl (1.6-2.3)
--- NOTE | 2024-12-26 13:45 | HPS.HSE ---
Family Physician
-
Family Physician: Ivory Stevenson
Chief Complaint
-
Diarrhea
History of Present Illness
History was taken partially from patient, emergency room physician, patient's caregiver.
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 difficile colitis presents to the emergency room after
episode of diarrhea at home. 2 episodes of explosive diarrhea were witnessed by patient's caregiver. Patient complains of transient episode of nausea without emesis, mild epigastric discomfort. He denies any fever and chills. He denies any
recent antibiotic administration or hospitalizations.
While in the emergency room patient is hemodynamically stable nontoxic-appearing
He had no further diarrhea while in the emergency room.
Abdominal examination is benign.
He is laboratory workup relevant for normal WBC, chronic normocytic anemia with hemoglobin of 9.2 and acute kidney injury with BUN/creatinine 28/1.4 and hypokalemia with potassium level of 2.6.
Medical History
Past Medical History
Past Medical History: Reports Cancer (Metastatic prostate carcinoma, BPH with chronic bladder outlet obstruction indwelling Fry) and Dementia; Denies CAD, CHF, COPD or IDDM
Past Surgical History: Reports None
Social History
Tobacco: Non-smoker
Alcohol: None
Drug: None
Personal:
Living: With Family
Employment: Not Employed
Family History
Family History: Not pertinent
Allergies / Home Medications
Allergies reflects when Allergies were last updated in [employer].
Home Medications with original date entered in [employer]
Allergy/Medication List:
Allergies
Allergy/AdvReac Type Severity Reaction Status Date / Time
Sulfa (Sulfonamide Allergy Unknown Verified 02/08/24 12:37
Antibiotics)
Home Medications
ascorbic acid (vitamin C) 500 mg tablet (Vitamin C) 500 mg PO DAILY Supplement 05/23/23
cholecalciferol (vitamin D3) 25 mcg (1,000 unit) tablet (Vitamin D3) 25 mcg PO DAILY Supplement 05/23/23
cyanocobalamin (vitamin B-12) 1,000 mcg tablet 1,000 mcg PO DAILY Supplement 05/23/23
finasteride 5 mg tablet 5 mg PO QPM Urinary Issue 05/23/23
tamsulosin 0.4 mg capsule (Flomax) 0.4 mg PO BID Urinary Issue 05/23/23
enzalutamide 40 mg tablet (Xtandi) 160 mg PO DAILY Cancer ##0 12/06/23
Lactobac no.2-Bifidobac no.1-S. thermo 112.5 billion cell capsule (Visbiome) 1 cap PO DAILY Supplement ##0 01/03/24
atorvastatin 10 mg tablet 10 mg PO QPM High Cholesterol 01/03/24
calcium carbonate (Calcium 600) 600 mg PO TID Supplement 01/03/24
coenzyme Q10 100 mg capsule (CoQ-10) 100 mg PO QPM Supplement 01/03/24
d-mannose 500 mg capsule (AZO D-Mannose) 500 mg PO QPM Supplement 01/03/24
donepezil 10 mg tablet 10 mg PO HS Neurological Condition 01/03/24
Review of Systems
-
A 12 point ROS was completed and negative except as noted: Yes
EENT: Reports No Symptoms
Respiratory: Reports No Symptoms
Cardiac: Reports No Symptoms
Abdomen/GI: Reports See HPI
: Reports No Symptoms and Fry
Physical Exam
Vital Signs
Vital Signs
Temp Pulse Resp BP Pulse Ox
97.4 F 68 16 139/65 94
12/26/24 10:07 12/26/24 12:30 12/26/24 12:30 12/26/24 12:00 12/26/24 12:45
Physical Exam
General: Well Developed, Well Nourished and No Apparent Distress
HEENT: NormoCephalic, Moist mucous membranes and Atraumatic
Respiratory: Clear
Cardiac: S1/S2 and Regular Rhythm; No Murmur or Rub
GI: Soft, Non Tender, Non Distended and Normal Bowel Sounds; No Organomegaly
Rectal: Deferred by Provider
Genito-urinary: Fry
Musculoskeletal: No Clubbing, No Cyanosis and No Edema
Skin: No Rash
Neuro: Awake, Alert, Oriented (Name and place not on time) and Nonfocal/grossly intact
Laboratory Results
-
12/26/24 09:59
12/26/24 09:59
Laboratory Results
Total Bilirubin 1.2 mg/dl (0.2-1.3) 12/26/24 09:59
AST 25 U/L (17-59) 12/26/24 09:59
ALT 15 U/L (0-50) 12/26/24 09:59
Alkaline Phosphatase 295 U/L (38-126) H 12/26/24 09:59
Impression/Plan
-
IMPRESSION:
84 years old male with dementia, prior history of C. difficile, static prostate cancer and bladder leg structure with underlying Fry presents to the emergency room with episode of diarrhea.
Diarrhea, suspect acute gastroenteritis
Prior history of C. difficile
JV secondary to dehydration
Hypokalemia
Conditions prior to admission
Metastatic prostate cancer on Lupron and Xtandi.
Chronic bladder outlet obstruction/BPH with indwelling Fry catheter.
History of pancreatitis.
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
PLAN:
Episode of diarrhea at home.
Differential diagnosis acute gastroenteritis, versus food poisoning, versus C. difficile colitis (prior history of/)
Afebrile and nontoxic-appearing in the emergency room
Benign abdominal examination
Recommendation as per emergency room physician heme-negative brown stool
Normal WBC
In review of recent imaging CT abdomen pelvis 11/14 without contrast no evidence of acute or chronic intra-abdominal pathology.
Admitted for close monitoring.
Allow clear liquid diet
Stool culture and stool for C. difficile if recurrent diarrhea
Continue probiotic
Hold donepezil acutely
JV suspect prerenal in the settings of dehydration
Hypokalemia likely due to above as well as limited oral intake at home
Fry catheter is in place
Continue IV fluids
Replete potassium
Follow-up BMP
Chronic bladder outlet obstruction
BPH
Metastatic prostate carcinoma.
Continue Fry
Preadmission regimen including finasteride, Flomax, Xtandi
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
If persistent GI symptoms, benefit of donepezil should be reassessed.
Full code
DVT prophylaxis subcu hep
--- NOTE | 2024-12-26 16:00 | EDRN ---
Ann-Marie Choi, patient's daughter [phone], called to let the hospitalist know that Dr. Stevenson from oncology wants to be included as a consult with the patient on the admission. Sent TT message to Dr. Perera.
--- NOTE | 2024-12-26 17:26 | PTCARENOTE ---
pt received from ED to 3W, room 328, oriented to room, VSS obtained, bed in lowest position, call betts within reach, bed alarm placed, Leg Fry bag changed to bed bag, follow plan of care
[2024-12-26] MEDS: 0.45% NACL with KCL 20 MEQ 1000 IV (17:36)
[2024-12-26] MEDS: VISBIOME 1 CAP PO (17:39)
[2024-12-26] MEDS: OSCAL CAL 500 500 MG PO (17:39)
[2024-12-26] MEDS: PROSCAR 5 MG PO (17:39)
[2024-12-26] MEDS: LIPITOR 10 MG PO (17:39)
--- NOTE | 2024-12-26 19:30 | PTCARENOTE ---
Assumed care of patient from previous RN. Patient just recently admitted to unit. Appears to be confused and forgetful, has history of dementia. Patient states he had been incontinent of BM 4-5 times since arrival. Assessed patient - wearing own
brief from home, small amount of loose BM present, unable to obtain sample to send for testing as it was soaked into brief. Patient insistent with PCT that he wanted to wear briefs -- weakness present and difficulty turning from side to side, also
with chronic Fry cath present -- reviewed with patient concern for infection, will use Covidien pads at this time. Stat lock placed to catheter. Patient at this time stating 'I only get a bath once every 4 weeks, that is just my time frame.' Noted
to have areas of thick crusting present to groin, trae area, in between fingers and all toes, malodorous. Will provide patient with appropriate bed bath this shift. IVFs maintained per orders. Patient states 'I just want to sleep.' Call betts in
reach. Bed alarm placed under patient and fall band placed on wrist for safety. Will monitor.
[2024-12-26] MEDS: FLOMAX 0.4 MG PO (21:16)
[2024-12-26] MEDS: HEPARIN 5000 UNITS SC (21:17)
[2024-12-26] MEDS: OSCAL CAL 500 PO (21:45)
[2024-12-27] VITALS (9 sets, daily range): BP systolic 145–156; BP diastolic 68–80; PULSE 84; O2SAT 97
[2024-12-27 07:52] LABS: Hematocrit 24.8 % (39.0-52.0); Hemoglobin 8.4 g/dL (13.0-18.0); Mean Corp Hgb Conc. 33.9 g/dL (33.0-37.0); Mean Corpuscular Volume 96.1 fL (80.0-94.0); Nucleated Red Blood Cells % 0 % (-); Platelet Count 152 10^3/uL (130-400); Red Cell Dist. Width 14.8 % (11.5-14.5)
--- NOTE | 2024-12-27 08:01 | W.PN.HOSP.TC ---
Today's Communication/Plan
-
Monitor potassium closely and replace as needed
Continue to monitor on telemetry
Assessment / Plan
Assessment / Plan
Physical Exam
General: Well Developed, Well Nourished and No Apparent Distress
HEENT: NormoCephalic, Moist mucous membranes and Atraumatic
Respiratory: Clear
Cardiac: S1/S2 and Regular Rhythm; No Murmur or Rub
GI: Soft, Non Tender, Non Distended and Normal Bowel Sounds; No Organomegaly
Rectal: Deferred by Provider
Genito-urinary: Fry
Musculoskeletal: No Clubbing, No Cyanosis and No Edema
Skin: No Rash
Neuro: Awake, Alert, Oriented (Name and place not on time) and Nonfocal/grossly intact
Assessment/Plan
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 difficile colitis presents to the emergency room after episode of
diarrhea at home. 2 episodes of explosive diarrhea were witnessed by patient's caregiver. Patient complains of transient episode of nausea without emesis, mild epigastric discomfort. He denies any fever and chills. He denies any recent
antibiotic administration or hospitalizations.
While in the emergency room patient was hemodynamically stable nontoxic-appearing
He had no further diarrhea while in the emergency room.
Abdominal examination is benign.
He is laboratory workup relevant for normal WBC, chronic normocytic anemia with hemoglobin of 9.2 and acute kidney injury with BUN/creatinine 28/1.4 and hypokalemia with potassium level of 2.6.
IMPRESSION:
84 years old male with dementia, prior history of C. difficile, static prostate cancer and bladder leg structure with underlying Fry presents to the emergency room with episode of diarrhea.
Diarrhea, suspect acute gastroenteritis
Prior history of C. difficile
JV secondary to dehydration
Hypokalemia
Hypomagnesemia
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
Conditions prior to admission
Metastatic prostate cancer on Lupron and Xtandi.
Chronic bladder outlet obstruction/BPH with indwelling Fry catheter.
History of pancreatitis.
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
PLAN:
Episode of diarrhea at home.
Differential diagnosis acute gastroenteritis, versus food poisoning, versus C. difficile colitis (prior history of/)
Afebrile and nontoxic-appearing in the emergency room
Benign abdominal examination
Recommendation as per emergency room physician heme-negative brown stool
Normal WBC
In review of recent imaging CT abdomen pelvis 11/14 without contrast no evidence of acute or chronic intra-abdominal pathology.
Admitted for close monitoring.
Continue clear liquid diet
Stool culture and stool for C. difficile if recurrent diarrhea
Continue probiotic
Hold donepezil acutely
JV suspect prerenal in the settings of dehydration
Hypokalemia likely due to above as well as limited oral intake at home
Hypomagnesemia likely due to above as well as limited oral intake at home and diarrhea
Fry catheter is in place -- chronic indwelling Fry Catheter
Continue IV fluids
Replete potassium
Follow-up BMP
I communicated on 12/27/24 via [place] Text with Dr. Duffy, and he said that Zometa can cause hypokalemia; but we also need the Zometa to fix the hypercalcemia which can also cause hypokalemia. Plan is to fix the potassium first as much as
possible with aggressive replacement and then do Zometa
Hypercalcemia
-Hold Vitamin D and oral calcium
Chronic bladder outlet obstruction
BPH
Metastatic prostate carcinoma.
Continue Fry
Preadmission regimen including finasteride, Flomax, Xtandi
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
If persistent GI symptoms, benefit of donepezil should be reassessed.
Full code
DVT prophylaxis subcu hep
Anticipated Discharge: > 48 hours
Subjective/Interval History
-
Date of Service: December 27, 2024
Patient was seen and examined. He denied any new symptoms or complaints.
Objective Data
-
Labs:
Laboratory Results
12/27/24
07:13
WBC 5.7
Hgb 8.4 L
Hct 24.8 L
Plt Count 152
Sodium Pending
Potassium Pending
Chloride Pending
Carbon Dioxide Pending
BUN Pending
Creatinine Pending
Glucose Pending
Calcium Pending
Vital Signs:
Vital Signs
Temp Pulse Resp BP Pulse Ox
98.2 F 80 14 152/72 98
12/27/24 03:05 12/27/24 03:05 12/27/24 03:05 12/27/24 03:05 12/27/24 03:05
I&O
12/26/24 12/27/24 12/28/24
06:59 06:59 06:59
Output Total 1350 / 1350
Balance -1350 / -1350
[2024-12-27 08:17] LABS: Blood Urea Nitrogen 25 mg/dl (9-20); Calcium 11.3 mg/dl (8.4-10.2); Carbon Dioxide 26 mmol/L (22-30); Chloride 108 mmol/L (98-107); Estimated Creatinine Clearance 45 ml/min; Glucose 96 mg/dl (70-99); Potassium 2.7 mmol/L (3.5-5.1); Sodium 140 mmol/L (135-145); eGFR 59.26
[2024-12-27] MEDS: OSCAL CAL 500 500 MG PO ×2 (09:04→17:49)
[2024-12-27] MEDS: VITAMIN B-12 1000 MCG PO (09:04)
[2024-12-27] MEDS: VITAMIN D3 (cholecalciferol) 25 MCG PO (09:04)
[2024-12-27] MEDS: VISBIOME 1 CAP PO (09:05)
[2024-12-27] MEDS: FLOMAX 0.4 MG PO ×2 (09:05→20:12)
[2024-12-27] MEDS: HEPARIN 5000 UNITS SC ×2 (09:05→20:13)
[2024-12-27 09:35] LABS: Magnesium 1.5 mg/dl (1.6-2.3)
[2024-12-27] MEDS: KCL 270 MEQ IV ×2 (10:44→22:19)
[2024-12-27] MEDS: KCL 20 MEQ PO (11:14)
--- NOTE | 2024-12-27 13:46 | CON.ONC ---
Consultation
-
Date Consultation Requested: 12/26/24
Date Consultation Performed: 12/27/24
Requesting Provider: Dilma
Performing Provider: Tati
Reason for Consultation: hx prostate cancer
Impression
Impression
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
Anemia of chronic kidney disease stage IIIa
Severe hypokalemia with mild hypercalcemia
Plan
Plan
Discussed with discussed with discussed with family and patient the expected progression of disease with his incurable state and the ability to use several different ARPIs in addition to ADT for disease control. Pending recovery from electrolyte
imbalance would consider bone stabilizing agents in addition to EPO supplementation as outpatien
Patient History
History of Present Illness
84-year-old white male with history of moderately severe dementia currently followed by Dr. Stevenson for stage IV with bone metastasis diagnosed April 2023 who has since obtained partial remission with Lupron/Xtandi initiated 10/2023 resulting in
10 fold decrease of PSA from 500 to 50 with minimal complaints related to hot flashes or edema now admitted to the hospital with complaints of intermittent nausea over 7 to 10 days with minor arthralgias right shoulder most bothersome. Apparently
he had a large explosive diarrheal event the morning of admission per his who notes he has had normal stooling habits with use of metamucil. Laboratory studies in the emergency room noted marked hypokalemia and modest hypercalcemia with stable
chronic kidney disease stage IIIa.
Past-Medical/Surgical History
Hypertension hyperlipidemia cataract extraction history of hyperparathyroidism secondary to age thyroid or parathyroid adenoma anemia of chronic kidney disease bladder outlet obstruction with hydronephrosis
Patient Medication
�Medication �Instructions �Recorded �Confirmed �Last Taken �Type
ascorbic acid (vitamin C) 500 mg 500 mg PO DAILY Supplement 05/23/23 12/26/24 02/07/24 History
tablet (Vitamin C)
cholecalciferol (vitamin D3) 25 25 mcg PO DAILY Supplement 05/23/23 12/26/24 02/08/24 History
mcg (1,000 unit) tablet (Vitamin
D3)
cyanocobalamin (vitamin B-12) 1,000 mcg PO DAILY Supplement 05/23/23 12/26/24 02/08/24 History
1,000 mcg tablet
finasteride 5 mg tablet 5 mg PO QPM Urinary Issue 05/23/23 12/26/24 02/07/24 History
tamsulosin 0.4 mg capsule (Flomax) 0.4 mg PO BID Urinary Issue 05/23/23 12/26/24 02/08/24 History
enzalutamide 40 mg tablet (Xtandi) 160 mg PO DAILY Cancer ##0 12/06/23 12/26/24 02/08/24 History
Lactobac no.2-Bifidobac no.1-S. 1 cap PO DAILY Supplement ##0 01/03/24 12/26/24 02/08/24 History
thermo 112.5 billion cell capsule
(Visbiome)
atorvastatin 10 mg tablet 10 mg PO QPM High Cholesterol 01/03/24 12/26/24 02/07/24 History
calcium carbonate (Calcium 600) 600 mg PO TID Supplement 01/03/24 12/26/24 02/08/24 History
coenzyme Q10 100 mg capsule 100 mg PO QPM Supplement 01/03/24 12/26/24 02/07/24 History
(CoQ-10)
d-mannose 500 mg capsule (AZO 500 mg PO QPM Supplement 01/03/24 12/26/24 02/07/24 History
D-Mannose)
donepezil 10 mg tablet 10 mg PO HS Neurological Condition 01/03/24 12/26/24 02/07/24 History
Active Medications
Generic Name Dose Route Start Last Admin
Trade Name Freq PRN Reason Stop Dose Admin
Atorvastatin Calcium 10 mg 12/26/24 18:00 12/26/24 17:39
Atorvastatin (Lipitor) 10 Mg Tablet PO 01/23/25 17:59 10 mg
QPM LASHAWN Administration
Calcium Carbonate 500 mg 12/26/24 18:00 12/27/24 09:04
Calcium Carbonate 500 Mg Tablet PO 01/23/25 17:59 500 mg
TID LASHAWN Administration
Cholecalciferol 25 mcg 12/27/24 08:00 12/27/24 09:04
Cholecalciferol (Vitamin D3) 25 Mcg Tablet (1,000 Units) PO 01/24/25 07:59 25 mcg
DAILY LASHAWN Administration
Cyanocobalamin 1,000 mcg 12/27/24 08:00 12/27/24 09:04
Cyanocobalamin (Vitamin B-12) 500 Mcg Tablet PO 01/24/25 07:59 1,000 mcg
DAILY LASHAWN Administration
Finasteride 5 mg 12/26/24 18:00 12/26/24 17:39
Finasteride 5 Mg Tablet PO 01/23/25 17:59 5 mg
QPM LASHAWN Administration
Heparin Sodium 5,000 units 12/26/24 20:00 12/27/24 09:05
Heparin 5,000 Units/Ml 1 Ml Vial SC 01/23/25 19:59 5,000 units
Q12 LASHAWN Administration
Potassium Chloride/Sodium Chloride 20 meq in 1,000 mls @ 65 mls/hr 12/26/24 16:41 12/26/24 17:36
0.45% Nacl With Kcl 20 Meq IV 1,000 mls
.[id number] LASHAWN Administration
Lactobacillus/Bifidobacterium 1 cap 12/26/24 16:41 12/27/24 09:05
Lactobac/Bifidobac (Visbiome) PO 01/23/25 16:40 1 cap
DAILY LASHAWN Administration
Enzalutamide [Xtandi 0 mg 12/27/24 08:00
] 160 Mg (4 X 40 Mg PO 01/24/25 07:59
Tablets)Po Daily DAILY LASHAWN
Sodium Chloride 0 flush 12/26/24 17:00
Sodium Chloride 0.9% (Flush) Syringe IV 01/23/25 16:59
PER PROTOCOL LASHAWN
Tamsulosin HCl 0.4 mg 12/26/24 20:00 12/27/24 09:05
Tamsulosin 0.4 Mg Capsule PO 01/23/25 19:59 0.4 mg
BID LASHAWN Administration
Review of Systems
-
History Source: Patient and Family (as per HPI)
All Other Systems: Reviewed and Negative (other than as per HPI)
Physical Exam
-
General: Appears Chronically Ill
HEENT: Moist Mucous Membranes
Cardiology: Normal Sinus Rhythm
Pulmonary: Clear
GI: Soft and Normal Bowel Sounds
Musculoskeletal: No Clubbing, No Cyanosis and No Edema
Psych: Calm and Confused
Labs
Lab Results
WBC 5.7 10^3/uL (4.8-10.8) 12/27/24 07:13
RBC 2.58 10^6/uL (4.70-6.10) L 12/27/24 07:13
Hgb 8.4 g/dL (13.0-18.0) L 12/27/24 07:13
Hct 24.8 % (39.0-52.0) L 12/27/24 07:13
MCV 96.1 fL (80.0-94.0) H 12/27/24 07:13
MCH 32.6 pg (27.0-31.0) H 12/27/24 07:13
MCHC 33.9 g/dL (33.0-37.0) 12/27/24 07:13
RDW 14.8 % (11.5-14.5) H 12/27/24 07:13
Plt Count 152 10^3/uL (130-400) 12/27/24 07:13
MPV 10.6 fL (7.4-10.4) H 12/27/24 07:13
Abs Immat Gran (auto) 0.0 10^3/uL (0-0.05) 12/27/24 07:13
Absolute Neuts (auto) 4.1 10^3/uL (1.4-6.5) 12/27/24 07:13
Absolute Lymphs (auto) 0.7 10^3/uL (1.2-3.4) L 12/27/24 07:13
Absolute Monos (auto) 0.8 10^3/uL (0.1-0.6) H 12/27/24 07:13
Absolute Eos (auto) 0.1 10^3/uL (0-0.7) 12/27/24 07:13
Absolute Basos (auto) 0.0 10^3/uL (0-0.2) 12/27/24 07:13
Immature Gran % 0.5 % (0-0.5) 12/27/24 07:13
Neutrophils % 72.2 % (42.2-75.2) 12/27/24 07:13
Lymphocytes % 12.1 % (20.5-51.1) L 12/27/24 07:13
Monocytes % 13.2 % (1.7-9.3) H 12/27/24 07:13
Eosinophils % 1.6 % (0-6) 12/27/24 07:13
Basophils % 0.4 % (0-2) 12/27/24 07:13
Creatinine 1.2 mg/dL (0.7-1.3) 12/27/24 07:13
Vital Signs
Vital Signs
Temp Pulse Resp BP Pulse Ox
98.5 F 80 18 145/68 96
12/27/24 11:00 12/27/24 11:00 12/27/24 11:00 12/27/24 11:00 12/27/24 11:00
[2024-12-27] MEDS: 0.45% NACL with KCL 20 MEQ 1000 IV (16:26)
[2024-12-27] MEDS: LIPITOR 10 MG PO (17:48)
[2024-12-27] MEDS: PROSCAR 5 MG PO (17:48)
[2024-12-27 19:02] LABS: Blood Urea Nitrogen 25 mg/dl (9-20); Calcium 11.2 mg/dl (8.4-10.2); Carbon Dioxide 27 mmol/L (22-30); Chloride 108 mmol/L (98-107); Estimated Creatinine Clearance 49 ml/min; Glucose 105 mg/dl (70-99); Potassium 3.3 mmol/L (3.5-5.1); Sodium 138 mmol/L (135-145); eGFR > 60.00
[2024-12-27 20:26] LABS: Blood Urea Nitrogen 24 mg/dl (9-20); Calcium 11.1 mg/dl (8.4-10.2); Carbon Dioxide 25 mmol/L (22-30); Chloride 109 mmol/L (98-107); Estimated Creatinine Clearance 49 ml/min; Glucose 104 mg/dl (70-99); Magnesium 1.4 mg/dl (1.6-2.3); Potassium 3.2 mmol/L (3.5-5.1); Sodium 137 mmol/L (135-145); eGFR > 60.00
--- NOTE | 2024-12-27 21:00 | PTCARENOTE ---
CRYSTAL SLICER ordered a magnesium sulfate rider and a potassium chloride rider. CRYSTAL SLICER notified this RN to run the magnesium sulfate first and then the potassium rider to follow when the magnesium was finished. See MAR.
[2024-12-27] MEDS: KCL IV (21:02)
[2024-12-27] MEDS: MAGNESIUM SULFATE 100 IV (21:02)
[2024-12-28 03:00] VITALS: BP 144/82
[2024-12-28 06:56] LABS: Hematocrit 24.1 % (39.0-52.0); Hemoglobin 8.3 g/dL (13.0-18.0); Mean Corp Hgb Conc. 34.4 g/dL (33.0-37.0); Mean Corpuscular Volume 96.4 fL (80.0-94.0); Platelet Count 156 10^3/uL (130-400); Red Cell Dist. Width 14.5 % (11.5-14.5)
[2024-12-28 07:00] VITALS: BP 154/79
[2024-12-28 07:10] LABS: Blood Urea Nitrogen 25 mg/dl (9-20); Calcium 11.2 mg/dl (8.4-10.2); Carbon Dioxide 23 mmol/L (22-30); Chloride 109 mmol/L (98-107); Estimated Creatinine Clearance 49 ml/min; Glucose 103 mg/dl (70-99); Magnesium 1.6 mg/dl (1.6-2.3); Potassium 3.4 mmol/L (3.5-5.1); Sodium 137 mmol/L (135-145); eGFR > 60.00
[2024-12-28 07:58] LABS: Albumin 3.1 g/dl (3.5-5.0)
[2024-12-28] MEDS: KCL 40 MEQ PO (08:42)
[2024-12-28] MEDS: VITAMIN B-12 1000 MCG PO (08:42)
[2024-12-28] MEDS: FLOMAX 0.4 MG PO ×2 (08:42→20:31)
[2024-12-28] MEDS: VISBIOME 1 CAP PO (08:43)
[2024-12-28] MEDS: HEPARIN 5000 UNITS SC ×2 (08:43→20:31)
[2024-12-28] MEDS: 0.45% NACL with KCL 20 MEQ 1000 IV ×2 (08:49→17:03)
--- NOTE | 2024-12-28 10:07 | W.PN.HOSP.TC ---
Today's Communication/Plan
-
Electrolytes have improved
Diarrhea better
Advance diet to low residue
Assessment / Plan
Assessment / Plan
Physical Exam
General: Well Developed, Well Nourished and No Apparent Distress
HEENT: Normocephalic, Moist mucous membranes
Respiratory: Clear to Auscultation Bilaterally
Cardiac: S1/S2 and Regular Rhythm
GI: Soft, Non Tender, Non Distended and Normal Bowel Sounds
Genito-urinary: Fry
Musculoskeletal: No Cyanosis and No Edema
Skin: Warm. Dry.
Neuro: Awake, Alert, Oriented (Name and place not on time) and Nonfocal/grossly intact
Assessment/Plan
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 difficile colitis presented to the emergency room after episode of
diarrhea at home. 2 episodes of explosive diarrhea were witnessed by patient's caregiver. Patient complains of transient episode of nausea without emesis, mild epigastric discomfort. He denies any fever and chills. He denies any recent
antibiotic administration or hospitalizations.
While in the emergency room patient was hemodynamically stable nontoxic-appearing
He had no further diarrhea while in the emergency room.
Abdominal examination is benign.
His laboratory workup relevant for normal WBC, chronic normocytic anemia with hemoglobin of 9.2 and acute kidney injury with BUN/creatinine 28/1.4 and hypokalemia with potassium level of 2.6.
IMPRESSION:
84 years old male with dementia, prior history of C. difficile, static prostate cancer and bladder leg structure with underlying Fry presents to the emergency room with episode of diarrhea.
Diarrhea, suspect acute gastroenteritis
Prior history of C. difficile
JV secondary to dehydration
Hypokalemia
Hypomagnesemia
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
Conditions prior to admission
Metastatic prostate cancer on Lupron and Xtandi.
Chronic bladder outlet obstruction/BPH with indwelling Fry catheter.
History of pancreatitis.
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
PLAN:
Episode of diarrhea at home.
Differential diagnosis acute gastroenteritis, versus food poisoning, versus C. difficile colitis (prior history of/)
Afebrile and nontoxic-appearing in the emergency room
Benign abdominal examination
Recommendation as per emergency room physician heme-negative brown stool
Normal WBC
In review of recent imaging CT abdomen pelvis 11/14 without contrast no evidence of acute or chronic intra-abdominal pathology.
Admitted for close monitoring.
Diet advanced to low residue diet on 12/28/24
On 12/27/24 no BM, but overnight 12/27/24 to 12/28/24 patient had diarrhea, then 12/28/24 no BM as of 2:30 pm
Stool studies negative so far but C. difficile antigen positive, toxin negative -- I discussed case with on-call aircraft delivery checker, and no indication to treat toxin negative (especially if diarrhea is better)
Continue probiotic
Hold donepezil acutely
JV suspect prerenal in the settings of dehydration
Hypokalemia likely due to above as well as limited oral intake at home
Hypomagnesemia likely due to above as well as limited oral intake at home and diarrhea
Fry catheter is in place -- chronic indwelling Fry Catheter
Continue IV fluids
Replete potassium
Follow-up BMP
I communicated on 12/27/[address] [place] Text [address] Duffy, and he said that Zometa can cause hypokalemia; but we also need the Zometa to fix the hypercalcemia which can also cause hypokalemia. Plan is to fix the potassium first as much as
possible with aggressive replacement and then do Zometa
Hypercalcemia
-Hold Vitamin D and oral calcium
Chronic bladder outlet obstruction
BPH
Metastatic prostate carcinoma.
Continue Rfy
Preadmission regimen including finasteride, Flomax, Xtandi
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
If persistent GI symptoms, benefit of donepezil should be reassessed.
Full code
DVT prophylaxis subcu hep
Anticipated Discharge: 24 - 48 hours
Subjective/Interval History
-
Date of Service: December 28, 2024
Patient was seen and examined. No new significant symptoms, complaints or events.
Objective Data
-
Labs:
Laboratory Results
12/28/24
06:33
WBC 5.0
Hgb 8.3 L
Hct 24.1 L
Plt Count 156
Sodium 137
Potassium 3.4 L
Chloride 109 H
Carbon Dioxide 23
BUN 25 H
Creatinine 1.1
Glucose 103 H
Calcium 11.2 H
Vital Signs:
Vital Signs
Temp Pulse Resp BP Pulse Ox
99.4 F 76 17 154/79 94
12/28/24 07:00 12/28/24 07:00 12/28/24 07:00 12/28/24 07:00 12/28/24 07:00
I&O
12/27/24 12/28/24 12/29/24
06:59 06:59 06:59
Intake Total 200 / 200
Output Total 1350 / 1350 1924 / 1924
Balance -1350 / -1350 -1725 / -1725
[2024-12-28 11:00] VITALS: BP 150/79
[2024-12-28 15:00] VITALS: BP 157/86
--- NOTE | 2024-12-28 16:52 | W.PN.UPDATE ---
Update Note
Progress Note Update
I received at 4:22 PM today a [place] Text from patient's nurse saying that patient had a fall (prior to arrival) and that physical therapy was working with patient, and that he has terrible pain in ischium and trochanter of the right hip. Right Hip
and Pelvis X-ray ordered.
[2024-12-28] MEDS: PROSCAR 5 MG PO (18:05)
[2024-12-28] MEDS: LIPITOR 10 MG PO (18:05)
[2024-12-28 19:00] VITALS: BP 166/83
--- NOTE | 2024-12-28 22:30 | W.PN.ONC ---
Today's Communication / Plan
-
with normalization of potassium administer Zometa
Impression
Impression
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
Anemia of chronic kidney disease stage IIIa
Severe hypokalemia with mild hypercalcemia
Plan
Plan
Discussed with discussed with discussed with family and patient the expected progression of disease with his incurable state and the ability to use several different ARPIs in addition to ADT for disease control. Pending recovery from electrolyte
imbalance would consider bone stabilizing agents in addition to EPO supplementation as outpatient though given likelihood of contribution of chronic hypercalcemia inpt therapy upon correction of hypokalemia reasonable with Zometa
Subjective/Objective
Subjective/Objective
confused more today than yesterday
Vital Signs:
Vital Signs
Temp Pulse Resp BP Pulse Ox
97.7 F 89 16 166/83 96
12/28/24 19:00 12/28/24 19:00 12/28/24 19:00 12/28/24 19:00 12/28/24 19:00
Lab Results:
Laboratory Data
WBC 5.0 10^3/uL (4.8-10.8) 12/28/24 06:33
Hgb 8.3 g/dL (13.0-18.0) L 12/28/24 06:33
Plt Count 156 10^3/uL (130-400) 12/28/24 06:33
eGFR > 60.00 12/28/24 06:33
[2024-12-28 23:00] VITALS: BP 142/83
[2024-12-29 02:57] VITALS: BP 148/66
[2024-12-29 06:32] LABS: Hematocrit 25.4 % (39.0-52.0); Hemoglobin 8.7 g/dL (13.0-18.0); Mean Corp Hgb Conc. 34.3 g/dL (33.0-37.0); Mean Corpuscular Volume 96.6 fL (80.0-94.0); Platelet Count 160 10^3/uL (130-400); Red Cell Dist. Width 14.5 % (11.5-14.5)
--- NOTE | 2024-12-29 06:50 | PTCARENOTE ---
Pt found to be in afib on tele sustaining between 120s-140s. This RN entered room to find pt sleeping. Pt asked if symptomatic but pt is confused and unable to communicate symptoms. SHREE Romero made aware. Order in for EKG and obtained. EKG
confirming afib rvr. BP 148/105. MINE SUPERVISOR notified of pt status. Has been receiving K+ repletion infusion. MINE SUPERVISOR order in for cardizem infusion to run at 15 mls/hr. Awaiting morning labs.
--- NOTE | 2024-12-29 06:50 | W.PN.UPDATE ---
Update Note
Progress Note Update
notified by nursing patient appears to be in atrial fibrillation. EKG confirms this. Asymptomatic. Cardizem infusion started. Awaiting morning electrolytes from lab draw. Has been receiving K+ repletion. Has hx of hypokalemia, hyponatremia,
hypocalcemia, hypomagnesemia and hypophosphatemia.
[2024-12-29 07:00] VITALS: BP 148/105
[2024-12-29] MEDS: CARDIZEM 125 IV (07:23)
[2024-12-29 07:24] LABS: Blood Urea Nitrogen 25 mg/dl (9-20); Calcium 10.8 mg/dl (8.4-10.2); Carbon Dioxide 23 mmol/L (22-30); Chloride 108 mmol/L (98-107); Estimated Creatinine Clearance 49 ml/min; Glucose 95 mg/dl (70-99); Magnesium 1.6 mg/dl (1.6-2.3); Potassium 3.6 mmol/L (3.5-5.1); Sodium 137 mmol/L (135-145); eGFR > 60.00
[2024-12-29 08:06] LABS: Troponin I 0.091 ng/ml
[2024-12-29] MEDS: 0.45% NACL with KCL 20 MEQ 1000 IV (08:50)
[2024-12-29] MEDS: HEPARIN 5000 UNITS SC ×2 (08:53→20:24)
[2024-12-29] MEDS: VITAMIN B-12 1000 MCG PO (08:53)
[2024-12-29] MEDS: FLOMAX 0.4 MG PO ×2 (08:53→20:23)
[2024-12-29] MEDS: VISBIOME PO (09:02)
--- NOTE | 2024-12-29 09:39 | CON.CAR ---
Addendum entered and electronically signed by Alejandro Osullivan MD 12/29/24 12:22:
I saw and examined the patient.
The SOLVENT PLANT OPERATOR's note was reviewed and I agree with the note.
Comment:
84-year-old male with history of prostate cancer with bony mets, chronic Babin, chronic anemia, hyperlipidemia who came in with diarrhea and nausea. He is noted to have an JV as well as electrolyte abnormalities. He is essentially it appears that
resolved. He then developed A-fib with RVR in the last 12 to 24 hours. He is currently being treated with diltiazem drip.
A-fib RVR
- Rate control at this time given patient is asymptomatic and likely would have issues with compliance given his significant dementia
- Continue dilt drip add metoprolol
- Transition to Eliquis
Original Note:
Consultation
Consultation Request
Date/Time Consultation Requested: 12/29/2024829
Date/Time Consultation Performed: 12/29/2024 0900
Requesting Provider: Dr. Qureshi
Performing Provider: Dr. Osullivan
Reason for Consultation: New AF RVR
Medical History
-
Chief Complaint: New AF RVR
History of Present Illness:
84 y/o pt with prostate cancer with bone mets, chronic babin,history C-diff , chronic anemia, hyperlipidemia, who presented to with diarrhea and nausea. He was noted to have JV and electrolyte abnormalities. He now has developed AF RVR. He
denies CP,palps, SOB. He does complain of hip pain. ( Pt follows with Dr. Lugo)
Past Medical History
Past Medical History: Other (Prostate Ca with mets, C-diff, BPH, chronic babin, )
Past Surgical History: Other (unknown)
Social History
Tobacco: Former Smoker (quit 50 years ago)
Alcohol: None
Personal:
Living: With Family
Family History
Family History: Unable to Obtain
Allergies / Home Medications
Allergy/AdvReac Type Severity Reaction Status Date / Time
Sulfa (Sulfonamide Allergy Unknown Verified 02/08/24 12:37
Antibiotics)
�Medication �Instructions �Recorded �Confirmed �Type
ascorbic acid (vitamin C) 500 mg 500 mg PO DAILY Supplement 05/23/23 12/26/24 History
tablet (Vitamin C)
cholecalciferol (vitamin D3) 25 25 mcg PO DAILY Supplement 05/23/23 12/26/24 History
mcg (1,000 unit) tablet (Vitamin
D3)
cyanocobalamin (vitamin B-12) 1,000 mcg PO DAILY Supplement 05/23/23 12/26/24 History
1,000 mcg tablet
finasteride 5 mg tablet 5 mg PO QPM Urinary Issue 05/23/23 12/26/24 History
tamsulosin 0.4 mg capsule (Flomax) 0.4 mg PO BID Urinary Issue 05/23/23 12/26/24 History
enzalutamide 40 mg tablet (Xtandi) 160 mg PO DAILY Cancer ##0 12/06/23 12/26/24 History
Lactobac no.2-Bifidobac no.1-S. 1 cap PO DAILY Supplement ##0 01/03/24 12/26/24 History
thermo 112.5 billion cell capsule
(Visbiome)
atorvastatin 10 mg tablet 10 mg PO QPM High Cholesterol 01/03/24 12/26/24 History
calcium carbonate (Calcium 600) 600 mg PO TID Supplement 01/03/24 12/26/24 History
coenzyme Q10 100 mg capsule 100 mg PO QPM Supplement 01/03/24 12/26/24 History
(CoQ-10)
d-mannose 500 mg capsule (AZO 500 mg PO QPM Supplement 01/03/24 12/26/24 History
D-Mannose)
donepezil 10 mg tablet 10 mg PO HS Neurological Condition 01/03/24 12/26/24 History
Review of Systems
-
Unable to obtain full review of systems at this time due to: Dementia
Respiratory: No Symptoms
Cardiac: No Symptoms
Musculoskeletal: Joint Pain
Physical Exam
Vital Signs
Temp Pulse Resp BP Pulse Ox
98.6 F 115 18 148/105 95
12/29/24 07:00 12/29/24 07:00 12/29/24 07:00 12/29/24 07:00 12/29/24 07:00
Lab Results
12/29/24 06:09
12/29/24 06:09
Troponin I 0.091 ng/ml H* 12/29/24 07:15
Physical Exam
General: No Apparent Distress and Comfortable
HEENT: Normocephalic and Anicteric
Respiratory: Clear (decreased bases. )
Cardiac: S1/S2 and Irregular Rhythm (tachycardia)
Musculoskeletal: No Edema
Skin: Warm and Dry
Neuro: Awake and Alert
Psych: Calm
Impression / Plan
-
New AF RVR:
- Pt with new onset AF
-no prior cardiology records
-pt offers no complaints at this time
-Con't IV heparin
-CHADSVASC 2 on SQ heparin
-Pt with prostate cancer, no active bleeding but anemia noted
-transition heparin to eliquis . Spoke with pt who indicated eliquis is free for the pt as he worked for [employer]. Plan eliquis 5mg po BID. She states she gives him his medications at home.
-Could consider cardioversion but concern for OP compliance with anticoagulation as pt with dementia.
- trend troponin.
Prostate Cancer with mets.
-Oncology following
hypokalemia:
-SE of zometa,
-improving on KCL. Mg stable.
Chronic anemia:
-Heme/onc following
JV:
-on admit in setting of diarrhea and dehydration.
-improved
hyperlipidemia:
-on atorvastatin as OP
Data Reviewed
-
EKG: Tracing Personally Visualized and interpreted (EKG on admit NSR [address] abn. EKG this am AF RVR [address] abn. )
Medical Tests (Nuc Med, Echo etc): Report Reviewed by me (Lexiscan stress test 10/03/21 EF 57 %, fixed defect in basal inf and apex consistent with soft tissue attenuation.)
Labs: Labs Reviewed by me, Discussed with Physician and Discussed with Patient
--- NOTE | 2024-12-29 10:04 | W.PN.HOSP.TC ---
Today's Communication/Plan
-
See plan
Assessment / Plan
Assessment / Plan
Physical Exam
General: Well Developed, Well Nourished and No Apparent Distress
HEENT: Normocephalic, Moist mucous membranes
Respiratory: Clear to Auscultation Bilaterally
Cardiac: S1/S2 and Regular Rhythm
GI: Soft, Non Tender, Non Distended and Normal Bowel Sounds
Genito-urinary: Fry
Musculoskeletal: No Cyanosis and No Edema
Skin: Warm. Dry.
Neuro: Awake, Alert, Oriented (Name and place not on time) and Nonfocal/grossly intact
Assessment/Plan
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 difficile colitis presented to the emergency room after episode of
diarrhea at home. 2 episodes of explosive diarrhea were witnessed by patient's caregiver. Patient complains of transient episode of nausea without emesis, mild epigastric discomfort. He denies any fever and chills. He denies any recent
antibiotic administration or hospitalizations.
While in the emergency room patient was hemodynamically stable nontoxic-appearing
He had no further diarrhea while in the emergency room.
Abdominal examination is benign.
His laboratory workup relevant for normal WBC, chronic normocytic anemia with hemoglobin of 9.2 and acute kidney injury with BUN/creatinine 28/1.4 and hypokalemia with potassium level of 2.6.
IMPRESSION:
84 years old male with dementia, prior history of C. difficile, static prostate cancer and bladder leg structure with underlying Fry presents to the emergency room with episode of diarrhea.
Diarrhea, suspect acute gastroenteritis
Prior history of C. difficile
JV secondary to dehydration
Hypokalemia
Hypomagnesemia
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
Atrial Fibrillation with RVR
Conditions prior to admission
Metastatic prostate cancer on Lupron and Xtandi.
Chronic bladder outlet obstruction/BPH with indwelling Fry catheter.
History of pancreatitis.
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
PLAN:
Episode of diarrhea at home.
Differential diagnosis acute gastroenteritis, versus food poisoning, versus C. difficile colitis (prior history of/)
Afebrile and nontoxic-appearing in the emergency room
Benign abdominal examination
Recommendation as per emergency room physician heme-negative brown stool
Normal WBC
In review of recent imaging CT abdomen pelvis 11/14 without contrast no evidence of acute or chronic intra-abdominal pathology.
Admitted for close monitoring.
Diet advanced to low residue diet on 12/28/24 -- tolerating it okay
Continue to monitor bowel movements
Stool studies negative so far but C. difficile antigen positive, toxin negative -- I discussed case with on-call junior network administrator, and no indication to treat toxin negative (especially if diarrhea is better)
Continue probiotic
Hold donepezil acutely
Atrial Fibrillation with RVR
-Cardizem Drip started on 12/29/24 morning, then weaned off
-Beta mo also started
-If rapid A-Fib happens again, then will need Cardizem Drip again
-Patient was previously on Xtandi (for his cancer) which cannot be used with Eliquis. But Dabigatran could be used, but the issue with Dabigatran would be it could not be crushed if needed. The nurses indicated patient was
having trouble with his pills on 12/29/24. Plan is to put patient back on the SQ heparin until oncology plan can be reviewed.
JV suspect prerenal in the settings of dehydration
Hypokalemia likely due to above as well as limited oral intake at home
Hypomagnesemia likely due to above as well as limited oral intake at home and diarrhea
Fry catheter is in place -- chronic indwelling Fry Catheter
Continue IV fluids
Replete potassium -- potassium improved/normalized
Magnesium also improved/normalized
Follow-up BMP
I communicated on 12/27/24 via [place] Text with [address]. Duffy, and he said that Zometa can cause hypokalemia; but we also need the Zometa to fix the hypercalcemia which can also cause hypokalemia. Plan is to fix the potassium first as much as
possible with aggressive replacement and then do Zometa
Hypercalcemia
-Hold Vitamin D and oral calcium
Chronic bladder outlet obstruction
BPH
Metastatic prostate carcinoma.
Continue Fry
Preadmission regimen including finasteride, Flomax, Xtandi
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
If persistent GI symptoms, benefit of donepezil should be reassessed.
Full code
DVT prophylaxis subcu hep
Anticipated Discharge: 24 - 48 hours
Subjective/Interval History
-
Date of Service: December 29, 2024
Patient was seen and examined. He reported pain in his hips. No other significant complaints. Had A-Fib RVR developed earlier.
Objective Data
-
Labs:
Laboratory Results
12/29/24
06:09
WBC 5.1
Hgb 8.7 L
Hct 25.4 L
Plt Count 160
Sodium 137
Potassium 3.6
Chloride 108 H
Carbon Dioxide 23
BUN 25 H
Creatinine 1.1
Glucose 95
Calcium 10.8 H
Vital Signs:
Vital Signs
Temp Pulse Resp BP Pulse Ox
98.6 F 115 18 148/105 95
12/29/24 07:00 12/29/24 07:00 12/29/24 07:00 12/29/24 07:00 12/29/24 07:00
I&O
12/28/24 12/29/24 12/30/24
06:59 06:59 06:59
Intake Total 200 / 200 240 / 240
Output Total 1924 / 1924 1000 / 1000 1110 / 1110
Balance -1725 / -1725 -760 / -760 -1110 / -1110
--- NOTE | 2024-12-29 10:04 | W.PN.ONC2 ---
Today's Communication / Plan
-
Has follow up with Dr. Stevenson 01/07/2025 for continued ALMA and management of metastatic prostate cancer
Impression
Impression
a/w diarrhea, nausea, epigastric discomfort -C.diff antien positive, toxin negative
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
dementia
chronic babin
Anemia of chronic kidney disease stage IIIa -no role for iron repletion with ferritin ~900, IS 33% November 2024
hypokalemia
mild hypercalcemia (stable)
atrial fibrillation
Plan
Plan
follow stool cultures
AF management per primary service
on IVF, stop calcium supplement
systemic chemotherapy or pluvicto treatment options are limited due to underlying dementia, comorbidities, and poor performance status
will continue OP ALMA and reconsider bone ppx if calcium continues to trend up and dental issues stable
Subjective/Objective
Subjective
poor historian
afebrile, no hypoxia, no hypotension
Vital Signs:
Vital Signs
Temp Pulse Resp BP Pulse Ox
98.6 F 115 18 148/105 95
12/29/24 07:00 12/29/24 07:00 12/29/24 07:00 12/29/24 07:00 12/29/24 07:00
Lab Results:
Laboratory Data
WBC 5.1 10^3/uL (4.8-10.8) 12/29/24 06:09
Hgb 8.7 g/dL (13.0-18.0) L 12/29/24 06:09
Plt Count 160 10^3/uL (130-400) 12/29/24 06:09
eGFR > 60.00 12/29/24 06:09
Physical Exam
poor dentition
awake, alert
breathing unlabored
babin with clear yellow urine
No LE edema
[2024-12-29] MEDS: LOPRESSOR 25 MG PO (10:08)
[2024-12-29 11:00] VITALS: BP 126/71
[2024-12-29 13:58] LABS: Troponin I 0.136 ng/ml
--- NOTE | 2024-12-29 14:05 | W.PN.UPDATE ---
Update Note
Progress Note Update
Pt was previously on Xtandi which cannot be used with eliquis. We could use dabigatran. The issue with dabigatran would be it could not be crushed if needed. The nurses indicated he was having trouble with his pills today. Will put pt back on the
SQ heparin until oncology plan can be reviewed.
--- NOTE | 2024-12-29 14:12 | PTCARENOTE ---
pt in afib/RVR at change of shift. HR 140s-150s, sustained. Cardizem 15mg/hr order obtained from night babak SWANN started by off-going night RN. Trop at 08:09 was 0.091, result reported to provider. Monitored HR, pt continued to be variably
tachycardic (103-144). Cards saw pt and started Lopressor, 25mg BID, second trop of 0.136 reported to provider at 14:11. Pt HR currently at 86. Resting. Continue plan of care
[2024-12-29 15:00] VITALS: BP 113/57
--- NOTE | 2024-12-29 16:17 | CM ---
CM met with Roderick to complete IA. He lives with his in a 2 story home.
PCP is Dr. Botello; Pharmacy is [facility] on [facility]. Patient is known to [facility] in the past and home instead as home health aides.
CM will continue to follow for discharge planning needs.
Plan: Anticipate return home with family; VN referral pending PT/OT evaluations.
[2024-12-29] MEDS: PROSCAR 5 MG PO (18:06)
[2024-12-29] MEDS: LIPITOR 10 MG PO (18:06)
[2024-12-29 20:15] VITALS: BP 119/67
[2024-12-29 20:20] LABS: Troponin I 0.143 ng/ml
[2024-12-29] MEDS: KCL 20 MEQ PO (20:23)
[2024-12-29] MEDS: LOPRESSOR 50 MG PO (20:23)
[2024-12-29 23:59] VITALS: BP 101/64
[2024-12-30] VITALS (9 sets, daily range): BP systolic 96–128; BP diastolic 53–74; PULSE 87–89; O2SAT 96
[2024-12-30 02:07] LABS: Troponin I 0.131 ng/ml
[2024-12-30 06:41] LABS: Hematocrit 25.0 % (39.0-52.0); Hemoglobin 8.4 g/dL (13.0-18.0); Mean Corp Hgb Conc. 33.6 g/dL (33.0-37.0); Mean Corpuscular Volume 98.4 fL (80.0-94.0); Platelet Count 175 10^3/uL (130-400); Red Cell Dist. Width 14.8 % (11.5-14.5)
[2024-12-30 07:35] LABS: Blood Urea Nitrogen 33 mg/dl (9-20); Calcium 10.5 mg/dl (8.4-10.2); Carbon Dioxide 23 mmol/L (22-30); Chloride 110 mmol/L (98-107); Estimated Creatinine Clearance 45 ml/min; Glucose 107 mg/dl (70-99); Magnesium 1.8 mg/dl (1.6-2.3); Potassium 3.8 mmol/L (3.5-5.1); Sodium 139 mmol/L (135-145); eGFR 59.26
[2024-12-30] MEDS: VITAMIN B-12 1000 MCG PO (08:21)
[2024-12-30] MEDS: VISBIOME 1 CAP PO (08:21)
[2024-12-30] MEDS: HEPARIN 5000 UNITS SC (08:22)
[2024-12-30] MEDS: FLOMAX 0.4 MG PO (08:22)
[2024-12-30] MEDS: KCL 20 MEQ PO (08:22)
[2024-12-30] MEDS: LOPRESSOR PO ×2 (08:24→21:12)
--- NOTE | 2024-12-30 09:48 | W.PN.CD ---
Today's Communication / Plan
-
Continue Metoprolol tartrate 50 mg BID
Add oral anticoagulant
- If no more Xtandi => Eliquis 5 bid
- If needs Xtandi AND can swallow pills => Pradaxa 150 bid
- If needs Xtandi AND Cannot swallow pills => Warfarin dose adjusted, drug-drug interaction suggests a hihger dose of warfarin is anticipated
- Dr. Stevenson communicated with me: No MORE Xtandi. Start Eliquis 5 bid
Cardiology will sign off.
Impression / Plan
-
Newly found asymptomatic paroxysmal AFib
- Rate: Good rate control on current metoprolol
- Rhythm: Paroxysmal but high burden, no significant pause upon conversion to sinus (at least 2-3 conversions reviewed)
- Anticoagulation: depends:
- If no more Xtandi => Eliquis 5 bid
- If needs Xtandi AND can swallow pills => Pradaxa 150 bid
- If needs Xtandi AND Cannot swallow pills => Warfarin dose adjusted, drug-drug interaction suggests a hihger dose of warfarin is anticipated
- -[id number] at least 2 (age1)
- Dr. Stevenson communicated with me: No MORE Xtandi. Start Eliquis 5 bid
Widely metastatic prostate cancer
Chronic non-iron deficiency anemia
Hypokalemia, K+ 2.6 on admit
- Can be seen with Zometa,
JV improved
- If Cr increased to 1.5 or higher lower dose Eliquis (if used) will be needed
- Cr now 1.2
Hyperlipidemia: on statin
Significant dementia
Subjective: We know that he has dementia but he denied chest pain or palpitations
Physical Exam
Vital Signs/Labs
Vital Signs
Temp Pulse Resp BP Pulse Ox
97.7 F 92 20 96/53 94
12/30/24 07:48 12/30/24 08:24 12/30/24 07:48 12/30/24 08:24 12/30/24 07:48
12/30/24 05:52
12/30/24 05:52
Magnesium 1.8 mg/dl (1.6-2.3) 12/30/24 05:52
LAB Results
12/29/24 12/29/24 12/29/24
07:15 13:13 19:49
Troponin I 0.091 H* 0.136 H* D 0.143 H*
12/30/24
01:10
Troponin I 0.131 H*
Physical Exam
Constitutional: No acute distress
EENT: Anicteric
Cardiovascular: Pedal edema is absent and Rhythm/rate is irregular
Respiratory: Respiratory effort normal and Lungs clear to auscul.
GI: Soft and Distention absent
Data Reviewed
-
Date of Service: December 30, 2024
--- NOTE | 2024-12-30 09:50 | W.PN.ONC ---
Today's Communication / Plan
-
With rising PSA and bone scan showing progression, will stop Xtandi - d/w patient and RN
I have an office appt w/ him on 01/07 - will discuss other options while continuing Lupron
Okay for Eliquis for afib, d/w cardiology
follow stool cultures
on IVF, stop calcium supplement
systemic chemotherapy or pluvicto treatment options are limited due to underlying dementia, comorbidities, and poor performance status
will continue OP ALMA and reconsider bone ppx if calcium continues to trend up and dental issues stable
Impression
Impression
a/w diarrhea, nausea, epigastric discomfort -C.diff antien positive, toxin negative
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
dementia
chronic babin
Anemia of chronic kidney disease stage IIIa -no role for iron repletion with ferritin ~900, IS 33% November 2024
hypokalemia
mild hypercalcemia (stable)
atrial fibrillation
Plan
Plan
With rising PSA and bone scan showing progression, will stop Xtandi - d/w patient and RN
I have an office appt w/ him on 01/07 - will discuss other options while continuing Lupron
Okay for Eliquis for afib, d/w cardiology
follow stool cultures
on IVF, stop calcium supplement
systemic chemotherapy or pluvicto treatment options are limited due to underlying dementia, comorbidities, and poor performance status
will continue OP ALMA and reconsider bone ppx if calcium continues to trend up and dental issues stable
Subjective/Objective
Subjective/Objective
no new complaints, denies diarrhea, dyspnea, palpitations
Vital Signs:
Vital Signs
Temp Pulse Resp BP Pulse Ox
97.7 F 92 20 96/53 94
12/30/24 07:48 12/30/24 08:24 12/30/24 07:48 12/30/24 08:24 12/30/24 07:48
awake, alert, forgetful
heart rate and rhythm are regular
Lab Results:
Laboratory Data
WBC 4.5 10^3/uL (4.8-10.8) L 12/30/24 05:52
Hgb 8.4 g/dL (13.0-18.0) L 12/30/24 05:52
Plt Count 175 10^3/uL (130-400) 12/30/24 05:52
eGFR 59.26 12/30/24 05:52
--- NOTE | 2024-12-30 10:42 | W.PN.HOSP.TC ---
Today's Communication/Plan
-
Please encourage and assist the patient with eating and drinking
Stop Xtandi
Start Eliquis
SNF placement pending
Assessment / Plan
Assessment / Plan
Physical Exam
General: Well Developed, Well Nourished and No Apparent Distress
HEENT: Normocephalic, Moist mucous membranes
Respiratory: Clear to Auscultation Bilaterally
Cardiac: S1/S2 and Regular Rhythm
GI: Soft, Non Tender, Non Distended and Normal Bowel Sounds
Genito-urinary: Fry
Musculoskeletal: No Cyanosis and No Edema
Skin: Warm. Dry.
Neuro: Awake, Alert, Oriented (Name and place not on time) and Nonfocal/grossly intact
Assessment/Plan
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 difficile colitis presented to the emergency room after episode of
diarrhea at home. 2 episodes of explosive diarrhea were witnessed by patient's caregiver. Patient complains of transient episode of nausea without emesis, mild epigastric discomfort. He denies any fever and chills. He denies any recent
antibiotic administration or hospitalizations.
While in the emergency room patient was hemodynamically stable nontoxic-appearing
He had no further diarrhea while in the emergency room.
Abdominal examination is benign.
His laboratory workup relevant for normal WBC, chronic normocytic anemia with hemoglobin of 9.2 and acute kidney injury with BUN/creatinine 28/1.4 and hypokalemia with potassium level of 2.6.
IMPRESSION:
84 years old male with dementia, prior history of C. difficile, static prostate cancer and bladder leg structure with underlying Fry presents to the emergency room with episode of diarrhea.
Diarrhea, suspect acute gastroenteritis
Prior history of C. difficile
JV secondary to dehydration
Hypokalemia
Hypomagnesemia
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
Atrial Fibrillation with RVR
Conditions prior to admission
Metastatic prostate cancer on Lupron and Xtandi.
Chronic bladder outlet obstruction/BPH with indwelling Fry catheter.
History of pancreatitis.
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
PLAN:
Episode of diarrhea at home.
Differential diagnosis acute gastroenteritis, versus food poisoning, versus C. difficile colitis (prior history of/)
Afebrile and nontoxic-appearing in the emergency room
Benign abdominal examination
Recommendation as per emergency room physician heme-negative brown stool
Normal WBC
In review of recent imaging CT abdomen pelvis 11/14 without contrast no evidence of acute or chronic intra-abdominal pathology.
Admitted for close monitoring.
Diet advanced to low residue diet on 12/28/24 -- tolerating it okay
Continue to monitor bowel movements
Stool studies negative so far but C. difficile antigen positive, toxin negative -- I discussed case with on-call care program resident, and no indication to treat toxin negative (especially if diarrhea is better)
Continue probiotic
Hold donepezil acutely
Atrial Fibrillation with RVR
-Cardizem Drip started on 12/29/24 morning, then weaned off
-Continue Metoprolol tartrate 50 mg BID
-If rapid A-Fib happens again, then will need Cardizem Drip again
-Cardiology confirmed with oncology that patient will not get anymore Xtandi--->therefore Eliquis started -- Dr. Lugo mentioned that patient does NOT need cardiology follow up so long as PCP or oncology will follow anticoagulation.
JV suspect prerenal in the settings of dehydration
Hypokalemia likely due to above as well as limited oral intake at home
Hypomagnesemia likely due to above as well as limited oral intake at home and diarrhea
Fry catheter is in place -- chronic indwelling Fry Catheter
Continue IV fluids
Replete potassium -- potassium improved/normalized
Magnesium also improved/normalized
Follow-up BMP
I communicated on 12/27/[address] [place] [employer] [address] Duffy, and he said that Zometa can cause hypokalemia; but we also need the Zometa to fix the hypercalcemia which can also cause hypokalemia. Plan is to fix the potassium first as much as
possible with aggressive replacement and then do Zometa
Metastatic prostate cancer on Lupron and Xtandi
-With rising PSA and bone scan showing progression, stop Xtandi
-Dr. Stevenson has an office appointment with patient on 01/07/25 - she will discuss other options while continuing Lupron
Hypercalcemia
-Hold Vitamin D and oral calcium
Chronic bladder outlet obstruction
BPH
Metastatic prostate carcinoma.
Continue Fry
Preadmission regimen including finasteride, Flomax, Xtandi
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
If persistent GI symptoms, benefit of donepezil should be reassessed.
Full code
DVT prophylaxis subcu hep
Anticipated Discharge: Within 24 hours
Subjective/Interval History
-
Date of Service: December 30, 2024
Patient was seen and examined. No new complaints or events. Needs encouragement for PO intake.
Objective Data
-
Labs:
Laboratory Results
12/30/24
05:52
WBC 4.5 L
Hgb 8.4 L
Hct 25.0 L
Plt Count 175
Sodium 139
Potassium 3.8
Chloride 110 H
Carbon Dioxide 23
BUN 33 H
Creatinine 1.2
Glucose 107 H
Calcium 10.5 H
Vital Signs:
Vital Signs
Temp Pulse Resp BP Pulse Ox
97.7 F 92 20 96/53 94
12/30/24 07:48 12/30/24 08:24 12/30/24 07:48 12/30/24 08:24 12/30/24 07:48
I&O
12/29/24 12/30/24 12/31/24
06:59 06:59 06:59
Intake Total 240 / 240 240 / 240
Output Total 1000 / 1000 2309 / 2309
Balance - / - -2069 /
[2024-12-30] MEDS: ELIQUIS 5 MG PO (11:15)
[2024-12-30] MEDS: TYLENOL 650 MG PO (11:46)
[2024-12-30] MEDS: LIPITOR 10 MG PO (17:34)
[2024-12-30] MEDS: PROSCAR 5 MG PO (17:34)
[2024-12-30 21:09] LABS: Glucose - Point of Care 127 mg/dl (70-99)
--- NOTE | 2024-12-30 21:10 | PTCARENOTE ---
This RN went in to give 2000 meds and found the pt to be very lethargic, responsive to sternal rub only. Pt able to open eyes but then closes quickly. Unresponsive to name call. Vitals stable, Blood sugar 127. TT house provider to let know of change
in status. House provider came to see the pt. Pt was able to wake up and have a bit of conversation. No new orders at this time.
[2024-12-30] MEDS: FLOMAX PO (21:11)
[2024-12-30] MEDS: ELIQUIS PO (21:11)
[2024-12-30] MEDS: KCL PO (21:12)
[2024-12-31] VITALS (7 sets, daily range): BP systolic 103–133; BP diastolic 63–72; PULSE 82; BMI 25.2
[2024-12-31 06:09] LABS: Hematocrit 25.5 % (39.0-52.0); Hemoglobin 8.5 g/dL (13.0-18.0); Mean Corp Hgb Conc. 33.3 g/dL (33.0-37.0); Mean Corpuscular Volume 98.5 fL (80.0-94.0); Platelet Count 169 10^3/uL (130-400); Red Cell Dist. Width 14.9 % (11.5-14.5)
[2024-12-31 06:34] LABS: Blood Urea Nitrogen 37 mg/dl (9-20); Calcium 10.8 mg/dl (8.4-10.2); Carbon Dioxide 24 mmol/L (22-30); Chloride 111 mmol/L (98-107); Estimated Creatinine Clearance 45 ml/min; Glucose 102 mg/dl (70-99); Magnesium 1.9 mg/dl (1.6-2.3); Potassium 3.6 mmol/L (3.5-5.1); Sodium 140 mmol/L (135-145); eGFR 59.26
[2024-12-31] MEDS: KCL 20 MEQ PO ×2 (08:09→19:56)
[2024-12-31] MEDS: VITAMIN B-12 1000 MCG PO (08:09)
[2024-12-31] MEDS: VISBIOME 1 CAP PO (08:09)
[2024-12-31] MEDS: ELIQUIS 5 MG PO ×2 (08:09→19:56)
[2024-12-31] MEDS: LOPRESSOR 50 MG PO ×2 (08:10→20:01)
[2024-12-31] MEDS: FLOMAX 0.4 MG PO ×2 (08:10→19:56)
--- NOTE | 2024-12-31 09:57 | W.PN.HOSP.TC ---
Today's Communication/Plan
-
Patient has bed at [facility]
But waiting for insurance auth
Assessment / Plan
Assessment / Plan
Physical Exam
General: Well Developed, Well Nourished and No Apparent Distress
HEENT: Normocephalic, Moist mucous membranes
Respiratory: Clear to Auscultation Bilaterally
Cardiac: S1/S2 and Regular Rhythm
GI: Soft, Non Tender, Non Distended and Normal Bowel Sounds
Genito-urinary: Fry
Musculoskeletal: No Cyanosis and No Edema
Skin: Warm. Dry.
Neuro: Awake, Alert, Oriented (Name and place not on time) and Nonfocal/grossly intact
Psych: Patient lacks decision-making capacity or insight
Assessment/Plan
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 difficile colitis presented to the emergency room after episode of
diarrhea at home. 2 episodes of explosive diarrhea were witnessed by patient's caregiver. Patient complains of transient episode of nausea without emesis, mild epigastric discomfort. He denies any fever and chills. He denies any recent
antibiotic administration or hospitalizations.
While in the emergency room patient was hemodynamically stable nontoxic-appearing.
He had no further diarrhea while in the emergency room.
Abdominal examination is benign.
His laboratory workup relevant for no leukocytosis, chronic normocytic anemia with hemoglobin of 9.2 and acute kidney injury with BUN/creatinine 28/1.4 and hypokalemia with potassium level of 2.6.
IMPRESSION:
84 years old male with dementia, prior history of C. difficile, static prostate cancer and bladder leg structure with underlying Fry presents to the emergency room with episode of diarrhea.
Diarrhea, suspect acute gastroenteritis
Prior history of C. difficile
JV secondary to dehydration
Hypokalemia
Hypomagnesemia
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
Atrial Fibrillation with RVR
Conditions prior to admission
Metastatic prostate cancer on Lupron and Xtandi.
Chronic bladder outlet obstruction/BPH with indwelling Fry catheter.
History of pancreatitis.
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
PLAN:
Episode of diarrhea at home.
Differential diagnosis acute gastroenteritis, versus food poisoning, versus C. difficile colitis (prior history of/)
Afebrile and nontoxic-appearing in the emergency room
Benign abdominal examination
Recommendation as per emergency room physician heme-negative brown stool
Normal WBC
In review of recent imaging CT abdomen pelvis 11/14 without contrast no evidence of acute or chronic intra-abdominal pathology.
Admitted for close monitoring.
Diet advanced to low residue diet on 12/28/24 -- tolerating it okay
Continue to monitor bowel movements
Stool studies negative so far but C. difficile antigen positive, toxin negative -- I discussed case with on-call ironworker helper shop, and no indication to treat toxin negative (especially if diarrhea is better)
Continue probiotic
Hold donepezil acutely
Atrial Fibrillation with RVR
-Cardizem Drip started on 12/29/24 morning, then weaned off
-Continue Metoprolol tartrate 50 mg BID
-If rapid A-Fib happens again, then will need Cardizem Drip again
-Cardiology confirmed with oncology that patient will not get anymore Xtandi--->therefore Eliquis started -- Dr. Lugo mentioned that patient does NOT need cardiology follow up so long as PCP or oncology will follow anticoagulation.
JV suspect prerenal in the settings of dehydration
Hypokalemia likely due to above as well as limited oral intake at home
Hypomagnesemia likely due to above as well as limited oral intake at home and diarrhea
Fry catheter is in place -- chronic indwelling Fry Catheter
Continue IV fluids
Replete potassium -- potassium improved/normalized
Magnesium also improved/normalized
Follow-up BMP
I communicated on 12/27/24 [address] [place] [employer] with Dr. Duffy, and he said that Zometa can cause hypokalemia; but we also need the Zometa to fix the hypercalcemia which can also cause hypokalemia. Plan is to fix the potassium first as much as
possible with aggressive replacement and then do Zometa
Metastatic prostate cancer on Lupron and Xtandi
-With rising PSA and bone scan showing progression, stop Xtandi
-Dr. Stevenson has an office appointment with patient on 01/07/25 - she will discuss other options while continuing Lupron
Hypercalcemia
-Hold Vitamin D and oral calcium
Chronic bladder outlet obstruction
BPH
Metastatic prostate carcinoma.
Continue Fry
Preadmission regimen including finasteride, Flomax, Xtandi
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
If persistent GI symptoms, benefit of donepezil should be reassessed.
Full code
DVT prophylaxis: Eliquis
Anticipated Discharge: Within 24 hours
Subjective/Interval History
-
Date of Service: December 31, 2024
Patient was seen and examined. He denied any new symptoms or complaints.
Objective Data
-
Labs:
Laboratory Results
12/31/24
05:52
WBC 4.4 L
Hgb 8.5 L
Hct 25.5 L
Plt Count 169
Sodium 140
Potassium 3.6
Chloride 111 H
Carbon Dioxide 24
BUN 37 H
Creatinine 1.2
Glucose 102 H
Calcium 10.8 H
Vital Signs:
Vital Signs
Temp Pulse Resp BP Pulse Ox
98.1 F 78 18 130/70 97
12/31/24 07:00 12/31/24 08:10 12/31/24 07:00 12/31/24 08:10 12/31/24 07:00
I&O
12/30/24 12/31/24 01/01/25
06:59 06:59 06:59
Intake Total 240 / 240 200 / 200
Output Total 2310 / 2310 880 / 880
Balance -2069 / -2069 - / -
--- NOTE | 2024-12-31 11:51 | CM ---
Addendum entered by Roverto Coughlin 01/02/25 15:49:
Pending auth # [id number]. Records forwarded to [facility].
Original Note:
Spoke to patient concerning therapy recommendation for SNF. Patient does not want to go. Conference call with in patients room. wants patient to go and requested this CM place referrals. Referrals forwarded. Awaiting responses. Will
need an insurance auth. Attending and RN aware.
[2024-12-31] MEDS: PROSCAR 5 MG PO (17:53)
[2024-12-31] MEDS: KCL 40 MEQ PO (17:53)
[2024-12-31] MEDS: LIPITOR 10 MG PO (17:54)
[2025-01-01 03:00] VITALS: BP 129/86
[2025-01-01 06:00] VITALS: BMI 25.3
[2025-01-01 07:20] VITALS: BP 131/68
--- NOTE | 2025-01-01 07:37 | W.PN.HOSP.TC ---
Today's Communication/Plan
-
Discharge today
Assessment / Plan
Assessment / Plan
Physical Exam
General: Well Developed, Well Nourished and No Apparent Distress
HEENT: Normocephalic, Moist mucous membranes
Respiratory: Clear to Auscultation Bilaterally
Cardiac: S1/S2 and Regular Rhythm
GI: Soft, Non Tender, Non Distended and Normal Bowel Sounds
Genito-urinary: Fry
Musculoskeletal: No Cyanosis and No Edema
Skin: Warm. Dry.
Neuro: Awake, Alert, Oriented (Name and place not on time) and Nonfocal/grossly intact
Psych: Patient lacks decision-making capacity or insight
Assessment/Plan
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 difficile colitis presented to the emergency room after episode of
diarrhea at home. 2 episodes of explosive diarrhea were witnessed by patient's caregiver. Patient complains of transient episode of nausea without emesis, mild epigastric discomfort. He denies any fever and chills. He denies any recent
antibiotic administration or hospitalizations.
While in the emergency room patient was hemodynamically stable nontoxic-appearing.
He had no further diarrhea while in the emergency room.
Abdominal examination is benign.
His laboratory workup relevant for no leukocytosis, chronic normocytic anemia with hemoglobin of 9.2 and acute kidney injury with BUN/creatinine 28/1.4 and hypokalemia with potassium level of 2.6.
IMPRESSION:
84 years old male with dementia, prior history of C. difficile, static prostate cancer and bladder leg structure with underlying Fry presents to the emergency room with episode of diarrhea.
Diarrhea, suspect acute gastroenteritis
Prior history of C. difficile
JV secondary to dehydration
Hypokalemia
Hypomagnesemia
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
Atrial Fibrillation with RVR
Conditions prior to admission
Metastatic prostate cancer on Lupron and Xtandi.
Chronic bladder outlet obstruction/BPH with indwelling Fry catheter.
History of pancreatitis.
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
PLAN:
Episode of diarrhea at home.
Differential diagnosis acute gastroenteritis, versus food poisoning, versus C. difficile colitis (prior history of/)
Afebrile and nontoxic-appearing in the emergency room
Benign abdominal examination
Recommendation as per emergency room physician heme-negative brown stool
Normal WBC
In review of recent imaging CT abdomen pelvis 11/14 without contrast no evidence of acute or chronic intra-abdominal pathology.
Admitted for close monitoring.
Diet advanced to low residue diet on 12/28/24 -- tolerating it okay
Continue to monitor bowel movements
Stool studies negative so far but C. difficile antigen positive, toxin negative -- I discussed case with on-call field liability generalist, and no indication to treat toxin negative (especially since diarrhea is better)
Continue probiotic
Hold donepezil acutely
Atrial Fibrillation with RVR
-Cardizem Drip started on 12/29/24 morning, then weaned off
-Continue Metoprolol tartrate 50 mg BID
-If rapid A-Fib happens again, then will need Cardizem Drip again
-Cardiology confirmed with oncology that patient will not get anymore Xtandi--->therefore Eliquis started -- Dr. Lugo mentioned that patient does NOT need cardiology follow up so long as PCP or oncology will follow anticoagulation.
JV suspect prerenal in the settings of dehydration
Hypokalemia likely due to above as well as limited oral intake at home
Hypomagnesemia likely due to above as well as limited oral intake at home and diarrhea
Fry catheter is in place -- chronic indwelling Fry Catheter
Continue IV fluids
Replete potassium -- potassium improved/normalized
Magnesium also improved/normalized
Follow-up BMP
I communicated on 12/27/[address] [place] [employer] [address] Duffy, and he said that Zometa can cause hypokalemia; but we also need the Zometa to fix the hypercalcemia which can also cause hypokalemia. Plan is to fix the potassium first as much as
possible with aggressive replacement and then do Zometa
-Recheck CBC, CMP and Magnesium outpatient
Metastatic prostate cancer on Lupron and Xtandi
-With rising PSA and bone scan showing progression, stop Xtandi
-Dr. Stevenson has an office appointment with patient on 01/07/25 - she will discuss other options while continuing Lupron
Hypercalcemia
-Stop Vitamin D and oral calcium
Chronic bladder outlet obstruction
BPH
Metastatic prostate carcinoma.
Continue Fry
Preadmission regimen including finasteride, Flomax, Xtandi
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
If persistent GI symptoms, benefit of donepezil should be reassessed.
Full code
DVT prophylaxis: Eliquis
More than 30 minutes spent in discharge including
Final examination of the patient
Summarizing hospital stay
Instructions for continuing care to all relevant caregivers
Preparation of discharge records, prescriptions, and referral forms
Total time spent (in minutes): 41
Anticipated Discharge: Today
Subjective/Interval History
-
Date of Service: January 01, 2025
Patient was seen and examined. No new events or issues reported.
Objective Data
-
Vital Signs:
Vital Signs
Temp Pulse Resp BP Pulse Ox
98.6 F 80 16 129/86 96
01/01/25 03:00 01/01/25 03:00 01/01/25 03:00 01/01/25 03:00 01/01/25 03:00
I&O
12/31/24 01/01/25 01/02/25
06:59 06:59 06:59
Intake Total 200 / 200 320 / 320
Output Total 880 / 880 1700 / 1700
Balance -680 / -680 -1380 / -1380
[2025-01-01] MEDS: FLOMAX 0.4 MG PO (07:58)
[2025-01-01] MEDS: LOPRESSOR 50 MG PO (07:58)
[2025-01-01] MEDS: VITAMIN B-12 1000 MCG PO (07:58)
[2025-01-01] MEDS: ELIQUIS 5 MG PO (07:58)
[2025-01-01] MEDS: KCL 20 MEQ PO (07:58)
[2025-01-01] MEDS: VISBIOME 1 CAP PO (07:58)
--- NOTE | 2025-01-01 09:30 | W.PN.ONC2 ---
Today's Communication / Plan
-
.
Impression
Impression
a/w diarrhea, nausea, epigastric discomfort -C.diff antien positive, toxin negative
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
dementia
chronic babin
Anemia of chronic kidney disease stage IIIa -no role for iron repletion with ferritin ~900, IS 33% November 2024
hypokalemia
mild hypercalcemia (stable)
atrial fibrillation
Plan
Plan
With rising PSA and bone scan showing progression, will stop Xtandi
I have an office appt w/ him on 01/07 - will discuss other options while continuing Lupron
Okay for Eliquis for afib in the abscense of significant bleeding and platelet count >50,000
follow stool cultures
stop calcium supplement
systemic chemotherapy or pluvicto treatment options are limited due to underlying dementia, comorbidities, and poor performance status
will continue OP ALMA and reconsider bone ppx if calcium continues to trend up and dental issues stable
Subjective/Objective
Subjective
no new complaints
denies golden
Vital Signs:
Vital Signs
Temp Pulse Resp BP Pulse Ox
97.5 F 75 18 131/68 98
01/01/25 07:20 01/01/25 07:58 01/01/25 07:20 01/01/25 07:58 01/01/25 07:20
Lab Results:
Laboratory Data
WBC 4.4 10^3/uL (4.8-10.8) L 12/31/24 05:52
Hgb 8.5 g/dL (13.0-18.0) L 12/31/24 05:52
Plt Count 169 10^3/uL (130-400) 12/31/24 05:52
eGFR 59.26 12/31/24 05:52
Physical Exam
HEENT: Other (poor dentition); No Jaundice
Pulmonary: Other (unlabored)
[2025-01-01 10:46] VITALS: BP 121/78; BP 134/88; PULSE 78; O2SAT 98
[2025-01-01 11:15] VITALS: BP 136/73
--- NOTE | 2025-01-01 14:33 | W.DCSUMMARY ---
Discharge Summary
Discharge Data
Date of Admission: 12/26/24
Date of Discharge: 01/01/25
Discharge Plan
-
Patient Disposition: Halfway/SNF
Discharge Diagnosis/Procedures: Diarrhea, suspect acute gastroenteritis
Prior history of C. difficile
C. difficile antigen positive, toxin negative -- no treatment for this needed as diarrhea improve significantly
Acute Kidney Injury secondary to dehydration
Hypokalemia
Hypomagnesemia
Stage IV adenocarcinoma of the prostate with bony mets - rising PSA
Dementia
Chronic bladder outlet obstruction/BPH with indwelling Fry Catheter
Anemia of chronic kidney disease stage IIIa
Mild hypercalcemia (stable) from cancer
Atrial fibrillation with rapid ventricular response
History of pancreatitis

X-Ray of Right Hip (as per radiologist's report):
'FINDINGS:
There is very severe dense blastic osseous metastatic disease throughout the lumbar spine, pelvic bones, proximal femurs. There is no radiographic evidence for acute pelvic or proximal femoral fracture.
There is moderate superolateral joint space loss in both hips. There are small osteophytes in both hips. There is severe discogenic degenerative disease at L5/S1 with severe loss of intervertebral disc space height.
There are multiple small calcified phleboliths in the pelvis. There is moderate calcific atherosclerotic plaque in the common femoral arteries.
IMPRESSION:
1. VERY SEVERE DIFFUSE BLASTIC OSSEOUS METASTATIC DISEASE.
2. Moderate bilateral osteoarthritis of the hips.
3. 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
Condition: Good
Diet: Low Residue
Blood Work: CBC, CMP and Magnesium in 2 to 3 days
Activity Restrictions/Additional Instructions:
Hospital global logistics analyst mentioned that patient does NOT need cardiology follow up as long as PCP or oncology will follow anticoagulation regimen.
Zometa for hypercalcemia to be considered outpatient by oncology
Referrals:
Ivory Stevenson MD [Family Provider, Oncology]
Referral Note: Appointment on 01/07/25
Additional Discharge Medication Instructions: With rising PSA and bone scan showing progression, stop Xtandi (as per oncologist).
Stop Calcium and Vitamin D given hypercalcemia.
Donepezil is on hold given patient came into the hospital with severe diarrhea and Donepezil can cause diarrhea.
Eliquis and Metoprolol Tartrate are new medications for atrial fibrillation.
Potassium chloride is a new medication given patient had severe hypokalemia during hospitalization. Labs (as mentioned above) need to be checked in 2 to 3 days and potassium tablets adjusted as needed depending on serum potassium levels.
Prescriptions:
New
Eliquis 5 mg Tablet
5 mg PO BID Qty: 60 1RF
potassium chloride 20 mEq Tablet,Er Particles/Crystals
20 meq PO BID Qty: 30 0RF
metoprolol tartrate 50 mg Tablet
50 mg PO BID Qty: 60 1RF
Continued
cyanocobalamin (vitamin B-12) 1,000 mcg Tablet
1,000 mcg PO DAILY
ascorbic acid (vitamin C) [Vitamin C] 500 mg Tablet
500 mg PO DAILY
tamsulosin [Flomax] 0.4 mg Capsule
0.4 mg PO BID
finasteride 5 mg Tablet
5 mg PO QPM
atorvastatin 10 mg Tablet
10 mg PO QPM
Visbiome 112.5 billion cell Capsule
1 cap PO DAILY Qty: 0
Held
donepezil 10 mg Tablet
10 mg PO HS
Hold Instructions: Resume on 01/22/25. Discuss with outpatient provider regarding if and when to resume this medication.
coenzyme Q10 [CoQ-10] 100 mg Capsule
100 mg PO QPM
Hold Instructions: Resume on 01/15/25. Discuss with outpatient provider regarding if and when to resume this medication.
AZO D-Mannose 500 mg Capsule
500 mg PO QPM
Hold Instructions: Resume on 01/29/25. Discuss with outpatient provider regarding if and when to resume this medication.
Discontinued
cholecalciferol (vitamin D3) [Vitamin D3] 25 mcg (1,000 unit) Tablet
25 mcg PO DAILY
Xtandi 40 mg Tablet
160 mg PO DAILY Qty: 0
calcium carbonate [Calcium 600] 600 mg calcium (1,500 mg) Tablet
600 mg PO TID
Discharge Orders:
Discharge Patient (As Directed); Ordered 01/01/25
Ordered By: Ray Qureshi
Discharge Date and Time
Print Language: [place]
[2025-01-01 15:27] VITALS: BMI 25.3
[2025-01-01 15:30] VITALS: BP 129/69
--- NOTE | 2025-01-01 16:20 | CM ---
Addendum entered by Hina Burroughs 01/01/25 16:26:
Pt states his daughter will transport him home via car today. IMM reviewed and pt provided verbal consent.
Original Note:
CM spoke with Roderick's daughter to discuss discharge plans. Daughter asked that I speak with him to determine what he is willing to consider in terms of services. Daughter will not consider the available SNF facilities which are [facility],
[facility].
Pt is known to [facility] and referral sent to [facility] for resumption of services. Dr. Logan to place order for VN.
[facility]
--- NOTE | 2025-01-01 16:32 | CM ---
Addendum entered by Hina Burroughs 01/02/25 10:49:
SNF authorization obtained; spoke with Evelia. Auth ID# [id number]
Original Note:
Pt has been cleared for discharge. Pt chose [facility]; bed available for transfer today. IMM reviewed with pt's ; agreeable to discharge today.
Plan: Ambulance transport to [facility] today.
[facility] Report: [phone]
[facility]
[2025-01-01] MEDS: PROSCAR 5 MG PO (17:05)
[2025-01-01] MEDS: LIPITOR 10 MG PO (17:05)
[2025-01-01 19:44] VITALS: BP 151/82
--- NOTE | 2025-01-01 19:53 | PTCARENOTE ---
Patient transferred to [facility] via acute care BLS. Patient confused. IV and tele pack removed by day RN. Report given to [facility] nurse by day shift RN.
== END 2025-01-01 19:42 | DRG 683 ==
LOC: 3 WEST ACU 13:49
PROVIDERS: Registered Nurse; ADMITTING PHYSICIAN Internal Medicine; ATTENDING PHYSICIAN Hospitalist; CONSULT PHYSICIAN Internal Medicine Cardiovascular Disease; CONSULT PHYSICIAN Internal Medicine Hematology & Oncology; EMERGENCY PHYSICIAN Student in an Organized Health Care Education/Training Program; OTHER PHYSICIAN Internal Medicine Hematology & Oncology
DX: N17.9 Acute kidney failure, unspecified (principal); C79.51 Secondary malignant neoplasm of bone; N13.8 Other obstructive and reflux uropathy; I13.0 Hypertensive heart and chronic kidney disease with heart failure and stage 1 through stage 4 chronic kidney disease, or unspecified chronic kidney disease; K52.9 Noninfective gastroenteritis and colitis, unspecified; E87.6 Hypokalemia; E83.42 Hypomagnesemia; C61 Malignant neoplasm of prostate; F03.C0 Unspecified dementia, severe, without behavioral disturbance, psychotic disturbance, mood disturbance, and anxiety; D63.1 Anemia in chronic kidney disease; N18.31 Chronic kidney disease, stage 3a; N40.1 Benign prostatic hyperplasia with lower urinary tract symptoms; E83.52 Hypercalcemia; I48.91 Unspecified atrial fibrillation; I87.8 Other specified disorders of veins; M16.0 Bilateral primary osteoarthritis of hip; E86.0 Dehydration; E78.00 Pure hypercholesterolemia, unspecified; I50.9 Heart failure, unspecified; Z79.818 Long term (current) use of other agents affecting estrogen receptors and estrogen levels; Z87.891 Personal history of nicotine dependence; Z88.2 Allergy status to sulfonamides
CPT/HCPCS: 73502; 80048; 80053; 82040; 82962; 83735; 84484; 85025; 85027; 87045; 87046; 87324; 87427; 87449; 89055; 93005; 96374; 97163; 97167; 97530; 99285; J3480

== ENCOUNTER → 2025-01-05 11:27 | Outpatient (REF) | payer MEDICARE, SELFPAY ==
[2025-01-05 13:10] LABS: ALT (SGPT) 20 U/L (0-50); AST (SGOT) 25 U/L (17-59); Albumin 3.2 g/dl (3.5-5.0); Alkaline Phosphatase 301 U/L (38-126); Blood Urea Nitrogen 41 mg/dl (9-20); Calcium 11.1 mg/dl (8.4-10.2); Carbon Dioxide 23 mmol/L (22-30); Chloride 108 mmol/L (98-107); Glucose 102 mg/dl (70-99); Magnesium 2.0 mg/dl (1.6-2.3); Potassium 4.4 mmol/L (3.5-5.1); Sodium 137 mmol/L (135-145); Total Protein 5.8 g/dl (6.3-8.2); eGFR 41.96
[2025-01-05 13:15] LABS: Hematocrit 27.0 % (39.0-52.0); Hemoglobin 8.7 g/dL (13.0-18.0); Mean Corp Hgb Conc. 32.2 g/dL (33.0-37.0); Mean Corpuscular Volume 100.0 fL (80.0-94.0); Platelet Count 170 10^3/uL (130-400); Red Cell Dist. Width 15.2 % (11.5-14.5)
[2025-01-05 14:49] LABS: Nucleated Red Blood Cells % 0 % (-)
== END ==
LOC: OLABP 11:27
PROVIDERS: ATTENDING PHYSICIAN Family Medicine
DX: I10 Essential (primary) hypertension (principal); I48.0 Paroxysmal atrial fibrillation; N13.8 Other obstructive and reflux uropathy; N18.31 Chronic kidney disease, stage 3a; N25.81 Secondary hyperparathyroidism of renal origin; N40.0 Benign prostatic hyperplasia without lower urinary tract symptoms; K52.9 Noninfective gastroenteritis and colitis, unspecified; C61 Malignant neoplasm of prostate; F03.90 Unspecified dementia, unspecified severity, without behavioral disturbance, psychotic disturbance, mood disturbance, and anxiety; C79.51 Secondary malignant neoplasm of bone; E78.5 Hyperlipidemia, unspecified
CPT/HCPCS: 36415; 80053; 83735; 85025

== ENCOUNTER → 2025-01-23 11:29 | Outpatient (REF) | payer MEDICARE, SELFPAY ==
[2025-01-23 13:41] LABS: Hematocrit 26.7 % (39.0-52.0); Hemoglobin 8.6 g/dL (13.0-18.0); Mean Corp Hgb Conc. 32.2 g/dL (33.0-37.0); Mean Corpuscular Volume 102.3 fL (80.0-94.0); Nucleated Red Blood Cells % 0.5 % (-); Platelet Count 155 10^3/uL (130-400); Red Cell Dist. Width 16.1 % (11.5-14.5)
== END ==
LOC: OLABP 11:29
PROVIDERS: ATTENDING PHYSICIAN Family Medicine
DX: K52.9 Noninfective gastroenteritis and colitis, unspecified (principal); C61 Malignant neoplasm of prostate; E78.5 Hyperlipidemia, unspecified; I10 Essential (primary) hypertension; F03.90 Unspecified dementia, unspecified severity, without behavioral disturbance, psychotic disturbance, mood disturbance, and anxiety; I48.0 Paroxysmal atrial fibrillation; N13.8 Other obstructive and reflux uropathy; N25.81 Secondary hyperparathyroidism of renal origin; N40.0 Benign prostatic hyperplasia without lower urinary tract symptoms
CPT/HCPCS: 36415; 85025